=== PATIENT | male | born 1950 | race Caucasian/White ===

== ENCOUNTER → 2017-10-09 10:27 | Outpatient (CLI) | payer MEDICARE, BC, SELFPAY ==
--- NOTE | 2017-10-09 10:55 | DI.REPORT_ITS ---
SYMPTOMS/DIAGNOSIS: RECENT PNEUMONIA TREATED WITH ANTIBIOTICS, SEVERE PLEURITIC CHEST PAIN, LOW GRADE FEVER, NORMAL 02 SATS, PAIN RLL PA AND LATERAL CHEST: Comparison CT scan is 09/23/17 and comparison chest x-ray is 01/18/10. The heart size and pulmonary vasculature are within normal limits. The left lung is clear. There is a persistent small right pleural effusion. No pneumothorax is identified. Note is made of a hiatal hernia. The bones are intact. IMPRESSION: Persistent small right pleural effusion.
[2017-10-09 11:51] LABS: D-Dimer 1109 ng/mlFEU (<500)
== END ==
PROVIDERS: PCP Internal Medicine; Visit Provider Internal Medicine Rheumatology
DX: R09.1 Pleurisy (principal); J90 Pleural effusion, not elsewhere classified; R50.9 Fever, unspecified
CPT/HCPCS: 71046; 36415; 85379

== ENCOUNTER 2017-10-09 13:02 | Emergency (ER) | payer MEDICARE, BC, SELFPAY ==
[2017-10-09 13:07] VITALS: BP 124/79; PULSE 78; RESP 17; TEMP 36.6; O2SAT 96
[2017-10-09 14:26] LABS: Abs Immature Grans 0.03 k/cumm (0.0-0.09); Absolute Basophil Count 0.04 k/cumm (0.0-0.2); Absolute Eosinophil Count 0.33 k/cumm (0.0-0.7); Absolute Lymphocyte Count 2.69 k/cumm (1.2-3.4); Absolute Monocyte Count 1.33 k/cumm (0.11-0.7); Absolute Neutrophil Count 3.79 k/cumm (1.2-6.7); Basophils % 0.5; HGB 14.6 g/dL (13.5-17.5); Immature Grans % 0.4; Lymphocytes % 32.8; Mean Corpuscular Hemoglobin 32.1 pg (27.0-33.0); Mean Corpuscular Volume 94.5 fL (80-95); Mean Platelet Volume 9.2 fL (8.0-11.0); Monocytes % 16.2; Neutrophils % 46.1; Platelet Count 238 x1000/uL (130-400); RBC 4.55 m/cumm (4.50-6.00); White Blood Cell Count 8.21 k/cumm (4.4-10.8)
[2017-10-09 14:43] LABS: ALT 23 U/L (12-78); AST 25 U/L (15-37); Albumin 3.6 g/dL (3.4-5.0); Alkaline Phosphatase 76 U/L (46-116); Anion Gap 9.7 mmol/L (3-11); BUN 13 mg/dL (7-18); Bilirubin, Total 0.3 mg/dL (0.2-1.0); CO2 27.3 mmol/L (21.0-32.0); CREATININE 1.03 mg/dL (0.70-1.30); Calcium 9.1 mg/dL (8.5-10.1); Chloride 102 mmol/L (98-107); Glucose 97 mg/dL (70-100); Lipase 144 U/L (73-393); Potassium 4.1 mmol/L (3.5-5.1); Sodium 139 mmol/L (136-145); Total Protein 8.4 g/dL (6.4-8.2)
[2017-10-09 14:50] LABS: Troponin I < 0.02 ng/mL (0.00-0.06)
--- NOTE | 2017-10-09 15:11 | DI.REPORT_ITS ---
SYMPTOMS/DIAGNOSIS: RIGHT UPPER QUADRANT PAIN ABDOMINAL ULTRASOUND: Routine examination was performed. The proximal aorta cannot be visualized due to overlying bowel. The remainder of the aorta is unremarkable. The IVC is unremarkable. There is diffuse increased echogenicity of the liver consistent with fatty infiltration. There is a focal area of decreased echogenicity adjacent to the gallbladder fossa, likely reflecting focal fatty sparing. No hepatic mass is seen. The gallbladder is negative. No stones, or sludge or gallbladder wall thickening is seen. The common duct is within normal limits at 0.5 cm. The tail of the pancreas was not well seen, but the remainder of the pancreas is unremarkable. The spleen and kidneys are unremarkable except for a 0.9 cm cyst in the mid pole of the right kidney. IMPRESSION: Hepatic steatosis. The findings were conveyed to Dr. Rueda on the date of the examination.
[2017-10-09 16:02] VITALS: BP 145/76; PULSE 68; RESP 16; TEMP 36.9; O2SAT 96
--- NOTE | 2017-10-09 16:37 | DI.RPTCT_ITS ---
SYMPTOM/DIAGNOSIS: CONCERN FOR PE, ELEVATED DIMER CHEST CT FOR PULMONARY EMBOLISM: CT angiography was performed with multi slice acquisition and multi planar and 3D reconstruction. Comparison is made with 20 September 2017. No pulmonary emboli or aortic dissection is seen. A small right pleural effusion and mild adjacent atelectasis is again noted. No infiltrate is visible. A large hiatal hernia is again demonstrated. IMPRESSION: Stable right pleural effusion. No evidence of pulmonary emboli or other acute abnormality.
[2017-10-09] MEDS: Omnipaque 350 MG/ML 100 ML BTL IJ (17:17)
--- NOTE | 2017-10-09 17:44 | DI.VRAD_ITS ---
EXAM: CT Angiography Chest With Intravenous Contrast EXAM DATE/TIME: 10/09/2017 4:38 PM CLINICAL HISTORY: 66 years old, male; Pain; Chest pain TECHNIQUE: Axial computed tomographic angiography images of the chest with intravenous contrast using CT angiography protocol. Coronal and sagittal reformatted images were created and reviewed. MIP reconstructed images were created and reviewed. COMPARISON: CT - CHEST FOR PULMONARY EMBOLUS 2017-09-20 13:28 FINDINGS: Pulmonary arteries: Normal. No pulmonary emboli. Aorta: Calcification of the thoracic aorta and/or great vessels consistent with atherosclerotic vessel disease. Lungs: Normal. No consolidation. No masses. Pleural space: Small right pleural fluid collection. Heart: Moderate calcified coronary artery disease. Mediastinum: Stable moderate intrathoracic hiatal hernia. Bones/joints: Unremarkable. No acute fracture. Soft tissues: Unremarkable. Lymph nodes: Unremarkable. No enlarged lymph nodes. IMPRESSION: 1. Small right pleural fluid collection. 2. Stable moderate intrathoracic hiatal hernia. 3. Moderate calcified coronary artery disease. Dictated and Authenticated by: Timmy Garcia MD. Ordering:HANG VAIL MD
[2017-10-09 18:28] LABS: Troponin I < 0.02 ng/mL (0.00-0.06)
--- NOTE | 2017-10-09 18:34 | ED.GENADUL ---
Disposition Clinical Impression: Right-sided chest pain Disposition: HOME Condition: Good Instructions: Chest Pain (ED) Additional Instructions: If you notice any worsening of your symptoms, or any new symptoms such as vomiting, diarrhea, fever, chills, shortness of breath, chest pain, numbness, weakness, or fainting , please return immediately to the emergency department for reevaluation. Please follow up with your primary care provider as soon as possible for reassessment and reevaluation. As always, it was a pleasure participating in your medical care today. Referrals: Yuan Tian MD [Primary Care Provider] - Medical Decision Making - Lab Data Laboratory Tests 10/09/17 10/09/17 10/09/17 14:20 14:20 18:03 WBC 8.21 RBC 4.55 Hgb 14.6 Hct 43.0 MCV 94.5 MCH 32.1 MCHC 34.0 RDW 14.0 Plt Count 238 MPV 9.2 Immature Gran % 0.4 Neutrophils % 46.1 Lymphocytes % 32.8 Monocytes % 16.2 Eosinophils % 4.0 Basophils % 0.5 Absolute Neutrophils 3.79 Absolute Lymphocytes 2.69 Absolute Monocytes 1.33 H Absolute Eosinophils 0.33 Absolute Basophils 0.04 Sodium 139 Potassium 4.1 Chloride 102 Carbon Dioxide 27.3 Anion Gap 9.7 BUN 13 Creatinine 1.03 Estimated GFR/1.73 m2 >= 60.00 Glucose 97 Calcium 9.1 Total Bilirubin 0.3 AST 25 ALT 23 Alkaline Phosphatase 76 Troponin I < 0.02 < 0.02 Total Protein 8.4 H Albumin 3.6 Lipase 144 - Medical Decision Making This is a 66-year-old male who presents with right upper quadrant pain that has been present since September. He has a known mild pleural effusion in this area, as well as a history of a intrathoracic hiatal hernia. He had been to his primary care provider's office recently, and they ordered an outpatient L d-dimer, and this was elevated. They recommended he come in for evaluation. Patient made it clear that the only reason he came in today was because his PCP recommended it to rule out PE. Physical exam demonstrates no significant abdominal tenderness. Laboratory workup is relatively benign.Gallbladder ultrasound is negative for any acute process. No evidence of gallbladder wall thickening, common bile duct dilatation, or gallstones. There is evidence of a fatty liver noticed. CT scan did not show any evidence of a pulmonary embolism. EKG is normal. Serial troponins are normal. Patient's laboratory workup most part is very benign. I did discuss the fatty liver with the patient he states that he drinks 3-4 beers a day, which I recommended he decrease. With a negative workup, negative serial troponins, no evidence of pulmonary embolism or gallbladder pathology I feel he can be safely discharged home with close follow-up with his PCP. I discussed red flags which to return the patient understands. I feel his symptoms may be secondary to mild pleurisy secondary to his small pleural effusion. I have extensively reviewed the treatment plan and discharge instructions with the patient and their family. I have addressed all patient concerns at this time. The patient and family was made aware of what symptoms to monitor for that would warrant a return to the emergency department. Discussed the plan with the patient and family, they demonstrate verbal understanding and agreement with our assessment and plan at this time. EKG 10/09/1813: 25 Rate 69, intervals normal, normal sinus rhythm. No ST elevations or depressions. Old Q waves in lead III and aVF. No other abnormalities. History of Present Illness - General Chief complaint: Abd Prob Stated complaint: UNKNOWN Time Seen by Provider: 10/09/17 13:17 - History of Present Illness Initial comments: This is a 66-year-old man with a past medical history of blood clots and pulmonary embolism in the past secondary to an inciting event for which he no longer takes anticoagulants at physician recommendation, hypertension, family history of men's type II, psoriatic arthritis, and Humira use secondary to his psoriatic arthritis. He presents today for evaluation of an elevated d-dimer. Patient states that in September he had pleuritic chest pain, at which time he was worked up and evaluated and shown to have a small pleural effusion, no other significant abnormalities. Since then he has mild continued right upper quadrant pain. It is been associated with a mild cough, and occasional productive green sputum. He states that over the last 5 days he has noticed it is gotten slightly worse than normal. There seems to be no other aggravating or relieving factors. No relation to food at this time, however back in September when it initially started there was a relation to greasy foods that made it worse. He went to see his primary care provider, and they ordered an outpatient d-dimer. This was elevated they recommended that he come in for evaluation of potential pulmonary embolism. He denies any vomiting but does admit to nausea. He denies any diarrhea. He denies any fevers at home or chills. Patient denies any hemoptysis, bilious emesis, rash, numbness tingling or weakness. Patient denies any recent surgeries. He denies any IV or illicit drug use. He has no other complaints at this time. - Related Data Cholecalciferol (Vitamin D3) [Vitamin D3] 1,000 unit PO DAILY 07/12/16 Magnesium Oxide 400 mg PO BID 07/12/16 Multivitamin [Multi-Vitamin Daily] 1 each PO DAILY 07/12/16 Adalimumab [Humira] 40 mg SQ Q14 days kit 07/13/16 Clobetasol Propionate/Emoll [Clobetasol Emollnt 0.05% Foam] 50 gm TP DAILY script 07/13/16 Omeprazole Magnesium 20 mg PO BID 07/13/16 Timolol 0.5% Gel [Timoptic-Xe 0.5%] 1 drp OD DAILY drp 07/13/16 Sucralfate [Carafate] 1 gm PO AC & HS #160 tab 07/16/16 Losartan [Cozaar] 50 mg PO 10/09/17 Metoprolol [Lopressor] 100 mg PO 10/09/17 Allergies Allergy/AdvReac Type Severity Reaction Status Date / Time methotrexate AdvReac Intermediate vomitting Unverified 07/16/16 11:31 Penicillins AdvReac nauseau Unverified 07/16/16 11:31 Review of Systems Other: 10 point review of systems was performed, pertinent positives and negatives are noted in the history of present illness. General Exam - Other Other exam information: 1.Const: Well-nourished, Well-developed, appearing stated age 2.Eyes: PERRL, no conjunctival injection, and symmetrical lids. 3.ENT: Atraumatic external nose and ears. Moist MM. Neck: Symmetric, trachea midline, No thyromegaly. 4.CVS: +S1/S2, No murmurs or gallops. Peripheral pulses 2+ and equal in all extremities. Brisk capillary refill in all extremities. 5.RESP: Unlabored respiratory effort. Clear to auscultation bilaterally. No wheezes rales or rhonchi, no reproducible chest pain on palpation of the right chest. 6.GI: Soft,, no guarding or rebound, no hepatosplenomegaly. Negative Spangler sign, no pain at McBurney's point. No right-sided or left-sided CVA tenderness. 7.MSK: Normocephalic/Atraumatic, Extremities w/o deformity or ttp No cyanosis or clubbing, Normal movement of all extremities 8.Skin: Warm, Dry. No rashes or lesions. 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 Sensation grossly intact, no focal neurologic deficits. 10.Psych: (AAO) x3. Appropriate mood and affect Course Vital Signs - 24 hr 10/09/17 10/09/17 13:07 16:02 Temperature 36.6 C 36.9 C Pulse 78 68 Respiratory 17 16 Rate Blood Pressure 124/79 145/76 Pulse Oximetry 96 96
== END 2017-10-09 18:40 | disposition home or self-care (01) ==
PROVIDERS: Emergency Provider Student in an Organized Health Care Education/Training Program; PCP Internal Medicine
DX: R07.9 Chest pain, unspecified (principal); R79.1 Abnormal coagulation profile; R11.0 Nausea; Z86.711 Personal history of pulmonary embolism; I10 Essential (primary) hypertension; R09.1 Pleurisy; J90 Pleural effusion, not elsewhere classified; R50.9 Fever, unspecified
CPT/HCPCS: 71046; 71275; 76700; 93005; 96372; 99285 ×2; 36415; 80053; 83690; 84484; 85025; 85379; 93010; J3490

== ENCOUNTER → 2017-10-22 07:22 | Outpatient (CLI) | payer MEDICARE, BC, SELFPAY | PROVIDERS: PCP Internal Medicine; Visit Provider Surgery | DX: J90 Pleural effusion, not elsewhere classified (principal); I10 Essential (primary) hypertension | CPT/HCPCS: 99214 ==

== ENCOUNTER → 2017-10-25 10:49 | Outpatient (CLI) | payer MEDICARE, BC, SELFPAY ==
--- NOTE | 2017-10-25 12:30 | DI.REPORT_ITS ---
SYMPTOMS/DIAGNOSIS: CHRONIC CHEST PAIN, PLEURAL EFFUSION, S/P THORACENTESIS PA AND LATERAL CHEST: Comparison is made with October,. There is a small right pleural effusion, not significantly changed from the previous exam. No left effusion is seen. A hiatal hernia is again noted. No infiltrate or pulmonary edema is seen. The heart size is within normal limits. IMPRESSION: Stable small right pleural effusion. No evidence of pneumothorax.
== END ==
PROVIDERS: PCP Internal Medicine; Visit Provider Surgery
DX: R06.02 Shortness of breath (principal); R07.1 Chest pain on breathing; J90 Pleural effusion, not elsewhere classified
CPT/HCPCS: 71046

== ENCOUNTER → 2017-10-25 14:21 | Outpatient (CLI) | payer MEDICARE, BC, SELFPAY ==
[2017-11-19 15:48] LABS: Leukemia/Lymphoma by FC (Blood See Comments
== END ==
PROVIDERS: PCP Internal Medicine; Visit Provider Surgery
DX: J90 Pleural effusion, not elsewhere classified (principal); R07.9 Chest pain, unspecified; R06.02 Shortness of breath
CPT/HCPCS: 88184; 88185; 71046; 88189

== ENCOUNTER → 2017-10-31 16:28 | Outpatient (CLI) | payer MEDICARE, BC, SELFPAY ==
--- NOTE | 2017-10-31 14:47 | DI.REPORT_ITS ---
SYMPTOMS/DIAGNOSIS: PLEURAL EFFUSION RT, J90 PA AND LATERAL CHEST AND DECUBITUS CHEST: Three views were obtained. The heart is not enlarged. There is a retrocardiac hiatus hernia. The lungs are generally clear. There is a small to moderate sized right pleural effusion, no gross interval change in size in comparison with examination of 10/25/17. CONCLUSION: No apparent interval change in right pleural effusion.
== END ==
PROVIDERS: PCP Internal Medicine; Visit Provider Internal Medicine
DX: J90 Pleural effusion, not elsewhere classified (principal); K44.9 Diaphragmatic hernia without obstruction or gangrene
CPT/HCPCS: 71048

== ENCOUNTER 2017-12-06 12:59 | Outpatient (CLI) | payer MEDICARE, BC, SELFPAY ==
--- NOTE | 2017-12-06 13:27 | DI.RAD_ITS ---
SYMPTOMS/DIAGNOSIS: RT CHEST PAIN, R07.89, LT SHOULDER PAIN, M25.512 CHEST: Two views. Comparison is 10/31/17. The heart size and pulmonary vasculature are within normal limits. There is a hiatal hernia present. The left lung is clear and well expanded. No effusion or pneumothorax is identified. There is persistent blunting of the right costophrenic angle and thickening along the right wall suggestive of a persistent small right pleural effusion. No pneumothorax is seen. No infiltrates are seen in the lungs. The bones appear to be intact. There is unchanged elevation of the right hemidiaphragm. IMPRESSION: Persistent small right pleural effusion. A CT scan of the chest was be considered for further evaluation to access for loculation. LEFT SHOULDER: Four views. No acute fracture or dislocation is seen. Mild degenerative changes are seen at the acromioclavicular joint. The glenohumeral joint is well maintained. The bones are normally mineralized and intact. The soft tissues are unremarkable. IMPRESSION: Mild degenerative changes of the left acromioclavicular joint.
== END 2017-12-06 13:19 ==
PROVIDERS: PCP Internal Medicine; Visit Provider Internal Medicine
DX: R07.89 Other chest pain (principal); J90 Pleural effusion, not elsewhere classified; M25.512 Pain in left shoulder; M19.012 Primary osteoarthritis, left shoulder
CPT/HCPCS: 71046; 73030

== ENCOUNTER → 2017-12-31 09:28 | Outpatient (BNVA) | payer MEDICARE, BC, SELFPAY | PROVIDERS: PCP Internal Medicine; Referring Provider Internal Medicine; Visit Provider Orthopaedic Surgery | DX: M25.512 Pain in left shoulder (principal); G89.29 Other chronic pain; I10 Essential (primary) hypertension | CPT/HCPCS: 99211; 99213 ==

== ENCOUNTER 2018-02-14 14:52 | Outpatient (CLI) | payer MEDICARE, BC, SELFPAY ==
--- NOTE | 2018-02-14 13:30 | DI.RAD_ITS ---
SYMPTOM/DIAGNOSIS: RT PLEURAL EFFUSION, M90,CHRONIC COUGH, CHEST PAIN PA AND LATERAL CHEST: Comparison is made with 12/06/17. Heart size and pulmonary vasculature are within normal limits. There is again seen a hiatal hernia. There has been resolution of the right pulmonary infiltrate and effusion. The lungs are clear. No effusions or pneumothoraces are identified. Degenerative changes are seen in the spine. IMPRESSION: No acute pulmonary process.
== END 2018-02-14 15:12 ==
PROVIDERS: PCP Internal Medicine; Visit Provider Internal Medicine
DX: J90 Pleural effusion, not elsewhere classified (principal); R05 Cough; R07.9 Chest pain, unspecified
CPT/HCPCS: 71046

== ENCOUNTER 2018-02-14 21:36 | Outpatient (REF) | payer MEDICARE, BC, SELFPAY ==
[2018-02-14 21:48] LABS: Abs Immature Grans 0.02 k/cumm (0.0-0.09); Absolute Basophil Count 0.03 k/cumm (0.0-0.2); Absolute Eosinophil Count 0.23 k/cumm (0.0-0.7); Absolute Lymphocyte Count 1.86 k/cumm (1.2-3.4); Absolute Monocyte Count 0.58 k/cumm (0.11-0.7); Absolute Neutrophil Count 2.57 k/cumm (1.2-6.7); Basophils % 0.6; Eosinophils % 4.3; HCT 43.7 % (40.0-50.0); HGB 14.4 g/dL (13.5-17.5); Immature Grans % 0.4; Lymphocytes % 35.2; Mean Corpuscular Hemoglobin 32.7 pg (27.0-33.0); Mean Corpuscular Volume 99.3 fL (80-95); Mean Platelet Volume 9.5 fL (8.0-11.0); Neutrophils % 48.5; Platelet Count 243 x1000/uL (130-400); RBC Distribution Width 13.7 % (11.8-14.1); White Blood Cell Count 5.29 k/cumm (4.4-10.8)
== END 2018-02-14 21:56 ==
LOC: NCHCN 21:36
PROVIDERS: PCP Internal Medicine; Visit Provider Internal Medicine
DX: J90 Pleural effusion, not elsewhere classified (principal); K92.2 Gastrointestinal hemorrhage, unspecified
CPT/HCPCS: 85025

== ENCOUNTER 2018-02-17 02:38 | Outpatient (CLI) | payer MEDICARE, BC, SELFPAY | END 2018-02-17 02:58 | PROVIDERS: PCP Internal Medicine; Visit Provider Dermatology | DX: L40.9 Psoriasis, unspecified (principal); Z53.8 Procedure and treatment not carried out for other reasons ==

== ENCOUNTER 2018-10-28 15:04 | Outpatient (CLI) | payer MEDICARE, BC, SELFPAY ==
[2018-10-28 15:27] LABS: Abs Immature Grans 0.03 k/cumm (0.0-0.09); Absolute Basophil Count 0.07 k/cumm (0.0-0.2); Absolute Eosinophil Count 0.24 k/cumm (0.0-0.7); Absolute Lymphocyte Count 1.27 k/cumm (1.2-3.4); Absolute Monocyte Count 0.91 k/cumm (0.11-0.7); Absolute Neutrophil Count 3.91 k/cumm (1.2-6.7); Basophils % 1.1; Eosinophils % 3.7; HCT 41.9 % (40.0-50.0); Immature Grans % 0.5; Lymphocytes % 19.8; Mean Corp. HGB Concentration 33.4 g/dL (32.0-36.0); Mean Corpuscular Hemoglobin 32.1 pg (27.0-33.0); Mean Corpuscular Volume 96.1 fL (80-95); Mean Platelet Volume 9.1 fL (8.0-11.0); Monocytes % 14.2; Neutrophils % 60.7; Platelet Count 279 x1000/uL (130-400); RBC 4.36 m/cumm (4.50-6.00); RBC Distribution Width 13.5 % (11.8-14.1); White Blood Cell Count 6.43 k/cumm (4.4-10.8)
[2018-10-28 16:25] LABS: ALT 37 U/L (12-78); AST 30 U/L (15-37); Albumin 3.7 g/dL (3.4-5.0); Alkaline Phosphatase 53 U/L (46-116); BUN 18 mg/dL (7-18); Bilirubin, Total 0.4 mg/dL (0.2-1.0); CREATININE 1.04 mg/dL (0.70-1.30); Calcium 8.7 mg/dL (8.5-10.1); Chloride 106 mmol/L (98-107); Glucose 94 mg/dL (70-100); Potassium 4.1 mmol/L (3.5-5.1); Sodium 142 mmol/L (136-145); Total Protein 7.6 g/dL (6.4-8.2)
[2018-10-31 11:01] LABS: Metanephrine, Free 0.25 nmol/L (<0.50); Normetanephrine, Free 0.48 nmol/L (<0.90)
== END 2018-10-28 15:24 ==
PROVIDERS: PCP Internal Medicine; Visit Provider Internal Medicine
DX: I10 Essential (primary) hypertension (principal); Z87.19 Personal history of other diseases of the digestive system; Z83.41 Family history of multiple endocrine neoplasia [MEN] syndrome
CPT/HCPCS: 36415; 80053; 83835; 85025

== ENCOUNTER → 2018-12-18 13:18 | Outpatient (BNVA) | payer MEDICARE, BC, SELFPAY | PROVIDERS: PCP Internal Medicine; Referring Provider Internal Medicine; Visit Provider Physical Therapy Assistant | DX: Z12.11 Encounter for screening for malignant neoplasm of colon (principal); I10 Essential (primary) hypertension ==

== ENCOUNTER 2018-12-31 11:45 | Outpatient (CLI) | payer MEDICARE, BC, SELFPAY ==
--- NOTE | 2018-12-31 14:00 | DI.US_ITS ---
EXAM: US CAROTID CLINICAL HISTORY: CAROTID ARTERY SYNDROME G45.1 TECHNIQUE: Ultrasound performed using standard protocol. COMPARISON: No exams were available for comparison FINDINGS: Plaque formation is noted and is mild to moderate bilaterally in the proximal internal carotid arteri es. Also note is made of moderate plaque in the right bulb. There is also moderate plaque in left c arotid bulb. Velocity measurements would be consistent with less than 50 percent stenosis bilaterall y. Bilateral antegrade flow is noted in the vertebrals. IMPRESSION: There is no significant stenosis or evidence of occlusion.
== END 2018-12-31 12:05 ==
PROVIDERS: PCP Internal Medicine; Visit Provider Internal Medicine
DX: G45.1 Carotid artery syndrome (hemispheric) (principal)
CPT/HCPCS: 93880

== ENCOUNTER 2019-01-16 07:43 | Day surgery (SDC) | payer MEDICARE, BC, SELFPAY ==
[2019-01-16 07:54] VITALS: BP 137/76; PULSE 71; RESP 16; TEMP 36.4; O2SAT 100
--- NOTE | 2019-01-16 08:18 | W.PM.DSUDISC ---
Discharge Plan Disposition Patient Disposition: HOME Condition: Good Discharge Details Reason For Visit: Colonoscopy Attending Provider: Merary Perry Primary Care Provider: Yuan Tian Home Meds and New Rx's Prescriptions: Continued Humira(CF) 40 mg/0.4 mL syringe kit 40 mg SC Q2W RF: 0 verapamil 240 mg capsule,ext rel. pellets 24 hr 240 mg PO DAILY RF: 0 multivitamin [Daily Multi-Vitamin] 1 EACH tablet 1 ea PO DAILY RF: 0 magnesium oxide 400 MG tablet 400 mg PO BID RF: 0 cholecalciferol (vitamin D3) 1,000 UNIT capsule 1,000 unit PO DAILY RF: 0 clobetasol-emollient 50 GM foam 50 gm Topical DAILY RF: 0 omeprazole magnesium 20 MG capsule,delayed release(DR/EC) 20 mg PO BID RF: 0 calcipotriene [Dovonex] 60 GM cream 60 gm Topical RF: 0 sertraline 50 MG tablet 50 mg PO DAILY RF: 0 clobetasol-emollient 15 GM cream 15 gm Topical RF: 0 losartan 50 MG tablet 50 mg PO RF: 0 metoprolol tartrate 100 MG tablet 100 mg PO RF: 0 Discontinued polyethylene glycol 3350 17 gram/dose powder 238 g PO ONCE Qty: 238 RF: 0 bisacodyl [Dulcolax (bisacodyl)] 5 mg tablet,delayed release (DR/EC) 5 mg PO ONCE Qty: 4 RF: 0 Discharge Instructions Additional Instructions: Findings: Your colonoscopy was normal. Follow up: Plan for routine screening in 10 years or sooner if symptoms arise. Please call if you develop: fevers >101.5 Nausea or Vomiting Abdominal pain that is not transient DAY SURGERY UNIT POST COLONOSCOPY INSTRUCTIONS 1. Because there will be medication in your system for the next 24 hours, you may feel a little sleepy. Your coordination will be affected. Therefore: a. Do not drive or operate dangerous equipment for 24 hours. b. Do not drink alcohol beverages for 24 hours (not even beer). c. Plan to go home and rest for the day. 2. Generally there are no restrictions on your activity after a day or so has gone by, but you may feel a bit fatigued for a few days. 3 After you arrive home you may have a light meal and return to a normal diet as you can tolerate it without feeling sick to your stomach. 4. After surgery, you may feel pain or discomfort. This should be only transient, but if it persists please contact your doctor. 5. If there are any questions regarding the findings of your procedure, please feel free to contact your doctor. 6. If you are unable to contact your doctor with a problem, contact the hospital at [phone]. 7. Continue all your regular medications unless directed otherwise. I understand the above instructions and have no questions. Signature of Patient or Responsible Adult Escort Date/Time Name of Responsible Adult Escort Signature of Nurse Date/Time Activity:: Activity as Tolerated Diet:: As Tolerated Discharge Orders Discharge Orders: Discharge Order (Routine); Ordered 01/16/19 Ordered By: Merary Perry DS: Diagnosis Discharge Diagnosis (1) Normal colonoscopy: Status: Acute
[2019-01-16] MEDS: Lactated Ringers 1,000 ML 80 ML IV (08:23)
[2019-01-16 09:45] VITALS: BP 142/81; PULSE 68; RESP 16; TEMP 36.4; O2SAT 99
--- NOTE | 2019-01-16 11:01 | COLE_ITS ---
DATE OF PROCEDURE: January 16, 2019 PREOPERATIVE DIAGNOSIS: Screening. POSTOPERATIVE DIAGNOSIS: Normal colon. PROCEDURE: Colonoscopy. SURGEON: Merary Perry M.D. ANESTHESIA: General. INDICATIONS: This is a 68-year-old man whose last colonoscopy in 2008 was normal. He presents for [facility] follow-up. He is asymptomatic and has no family history of colon cancer. PROCEDURE: He was placed in the left Mason position. Propofol was titrated to sedation. Digital rec stacy examination revealed no abnormalities. The scope was advanced to the cecum without difficulty. The ileocecal valve and appendiceal orifice were clearly identified. His prep was excellent. The sc ope was slowly withdrawn with no abnormalities seen within the ascending, transverse, descending, sig moid colon or rectum, including on retroflex view. He tolerated the procedure well and was stable to recovery. He will need a follow-up screening again in ten years or sooner if symptoms indicate. cc: Yuan Tian M.D.
== END 2019-01-16 10:00 | disposition home or self-care (01) ==
PROVIDERS: PCP Internal Medicine; Visit Provider Surgery
PROC: 0DJD8ZZ Inspection of Lower Intestinal Tract, Via Natural or Artificial Opening Endoscopic (ICD-10-PCS; CPT 45378; principal; 2019-01-16 09:00)
DX: Z12.11 Encounter for screening for malignant neoplasm of colon (principal); I10 Essential (primary) hypertension
CPT/HCPCS: G0121

== ENCOUNTER 2019-02-13 01:38 | Outpatient (CLI) | payer MEDICARE, BC, SELFPAY ==
--- NOTE | 2019-02-13 10:30 | DI.US_ITS ---
APPROVED REPORT EXAM: Comprehensive 2D, Doppler, and color-flow Echocardiogram Patient Location: Out-Patient Call Center Recruiter: CORINE Carolina (AE) Rhythm: NSR Indications: vision changes h53.9, assess for afib and/or cardiac source for embolic event. amauros is fugax rt eye g45.3 ( handwritten in) Conclusion Left Ventricle : The left ventricle is normal size. Left ventricular systolic function is normal. Th ere is normal left ventricular wall thickness. There is normal LV segmental wall motion. The left ve ntricular diastolic function is normal. LVEF is estimated to be 60-65%. Right Ventricle : The right ventricle is normal size. The right ventricular systolic function is norm al. Atria : The left atrium size is top normal. The right atrium size is normal. Aortic Valve : The Aortic valve is very mildly sclerotic. No aortic regurgitation is present. There i s no aortic valvular stenosis. Mitral Valve : Mitral valve leaflets are mildly thickened. Mild mitral regurgitation. No evidence of mitral valve stenosis. Tricuspid Valve : The tricuspid valve is normal in structure. Trace to mild tricuspid regurgitation. Great Vessels : IVC is normal in size and collapses >50% with inspiration. Mid RVSP is 35-40 mmHg. There is no echocardiographic evidence of a cardiac source of emboli. There is no prior echocardiogram available for comparison. Wall motion Left Ventricle The left ventricle is normal size. Left ventricular systolic function is normal. There is normal left ventricular wall thickness. There is normal LV segmental wall motion. The left ventricular diastolic function is normal. LVEF is estimated to be 60-65%. Right Ventricle The right ventricle is normal size. The right ventricular systolic function is normal. Atria The left atrium size is top normal. The right atrium size is normal. Aortic Valve The Aortic valve is very mildly sclerotic. There is no aortic valvular stenosis. No aortic regurgitat ion is present. Mitral Valve Mitral valve leaflets are mildly thickened. No evidence of mitral valve stenosis. Mild mitral regurgi tation. Tricuspid Valve The tricuspid valve is normal in structure. Trace to mild tricuspid regurgitation. Pulmonic Valve Pulmonic valve is not well visualized. Great Vessels The aortic root is normal in size. The ascending aorta size is normal. IVC is normal in size and nikita apses >50% with inspiration. Mid RVSP is 35-40 mmHg. Pericardium There is no pericardial effusion. 2D Dimensions IVSd 0.80 cm M: 0.6-1.2 LV EDV A2C 65.30 mL PWd 1.00 cm M: 0.6 - 1.2 LV EDV A4C 113.10 mL LVDd 5.35 cm M: 4.2 - 5.8 LA Volume Index A2C 32.29 mL/m2 LVDs 3.50 cm M: 2.5 - 4.0 LA Volume Index A4C 29.76 mL/m2 Aortic Root 3.40 cm M: 3.1 - 3.7 LA Volume Index Biplane 32.62 mL/m2 RA Area A4C 16.04 cm2 LA Area A4C 20.24 cm2 LVOT 2.10 cm (M/F) 1.5-2.5 LA Area A2C 20.03 cm2 Ascending Aorta 3.31 cm M: 2.6 - 3.4 EF AP4 68.70 % LVEF (Teich) 63.71 % EF AP2 56.05 % LVEF (Andino's) 63.97 % M: 52 - 72 EF BP 63.97 % LV Volume 68.03 mL M: 62 - 150 LV Volume Index 34.01 mL/m2 M: 34 - 74 FS 34.95 % LV Diastology E/A Ratio 0.8 MED E' 0.08 (>0.07 m/s) LV E/e MED 8.45 (<14) LAT E' 0.13 (>0.1 m/s) LV E/e LAT 5.55 (<14) Aortic Valve LVOT Area 3.60 cm2 LVOT Peak Edgar. 1.05 m/s LVOT Mean Edgar. 0.69 m/s LVOT Peak Gr. 4.50 mmHg BERENICE Vmax Index 1.26 cm2/m2 LVOT Mean Gr. 2.20 mmHg LVOT VTI 0.20 m BERENICE Mean Edgar. Index 1.07 cm2/m2 AoV Peak Edgar. 1.52 (0.5-1.3 m/s) AoV Mean Edgar. 1.16 m/s AO Peak GR. 9.19 mmHg AO Mean GR. 5.74 (<5 mmHg) BERENICE (VTI) 2.27 (2.5-4.5 cm2) BERENICE (VTI) Index 1.14 cm/m2 Mitral Valve MV E Max Edgar. 0.71 (0.4-1.3 m/s) MV A Velocity 0.90 (0.4-1.3 m/s) E/A Ratio 0.79 MV Decel. Time 179.40 (160-240 msec) MV PHT 52.03 msec MVA PHT 4.20 cm2 Tricuspid Valve TR P. Velocity 2.98 m/s TV Regurg Vmax 2.98 m/s RAP Estimate 3.00 mmHg RVSP 39.00 mmHg TR P. Gradient 35.55 mmHg
== END 2019-02-13 01:58 ==
PROVIDERS: PCP Internal Medicine; Visit Provider Internal Medicine
DX: G45.3 Amaurosis fugax (principal); H53.9 Unspecified visual disturbance; I34.9 Nonrheumatic mitral valve disorder, unspecified; I10 Essential (primary) hypertension
CPT/HCPCS: 93306

== ENCOUNTER 2019-02-16 00:12 | Outpatient (CLI) | payer MEDICARE, BC, SELFPAY | END 2019-02-16 00:32 | PROVIDERS: PCP Internal Medicine; Visit Provider Internal Medicine | DX: I48.91 Unspecified atrial fibrillation (principal); I47.1 Supraventricular tachycardia; I49.3 Ventricular premature depolarization | CPT/HCPCS: 93225 ==

== ENCOUNTER 2019-02-17 14:08 | Outpatient (REF) | payer MEDICARE, BC, SELFPAY ==
[2019-02-17 22:24] LABS: Folate 6.2 ng/mL (8.6-20.0); Vitamin B12 290 pg/mL (193-986)
== END 2019-02-17 14:28 ==
LOC: NCHCN 14:08
PROVIDERS: PCP Internal Medicine; Visit Provider Internal Medicine
DX: D53.9 Nutritional anemia, unspecified (principal); F41.8 Other specified anxiety disorders; R05 Cough; K30 Functional dyspepsia; G47.00 Insomnia, unspecified; D15.0 Benign neoplasm of thymus; J45.991 Cough variant asthma; E66.9 Obesity, unspecified
CPT/HCPCS: 82607; 82746

== ENCOUNTER 2019-02-18 15:51 | Outpatient (CLI) | payer MEDICARE, BC, SELFPAY ==
--- NOTE | 2019-02-19 09:45 | W.HOLTRPT ---
Date of service: 02/19/19 Time of Service: 09:45 Holter Monitor Report Holter Monitor Note: There is a 24-hour Holter monitor ordered for indication of atrial fibrillation. ?Patient was in normal sinus rhythm for the majority of the recording. ?The patient had one episode of supraventricular tachycardia which lasted 3 beats. The patient had rare (less than 1%) premature atrial contractions ?The patient had 0 episodes of ventricular tachycardia and rare (less than 1%) single ventricular ectopic beats. ?The patient had no episodes of atrial fibrillation, pauses greater than 3 seconds or episodes of high degree heart block. ?There were no patient triggered events.
== END 2019-02-18 16:11 ==
PROVIDERS: PCP Internal Medicine; Visit Provider Internal Medicine
DX: I48.91 Unspecified atrial fibrillation (principal); I47.1 Supraventricular tachycardia; I49.3 Ventricular premature depolarization
CPT/HCPCS: 93226

== ENCOUNTER 2019-02-19 09:56 | Outpatient (CLI) | payer MEDICARE, BC, SELFPAY | END 2019-02-19 10:16 | PROVIDERS: PCP Internal Medicine; Referring Provider Internal Medicine; Visit Provider Internal Medicine Cardiovascular Disease | DX: I48.91 Unspecified atrial fibrillation (principal); I47.1 Supraventricular tachycardia; I49.3 Ventricular premature depolarization | CPT/HCPCS: 93227 ==

== ENCOUNTER 2019-04-28 15:55 | Outpatient (REF) | payer MEDICARE, BC, SELFPAY ==
[2019-04-28 21:48] LABS: HCT 42.7 % (40.0-50.0); HGB 14.5 g/dL (13.5-17.5); Mean Corpuscular Hemoglobin 33.7 pg (27.0-33.0); Mean Corpuscular Volume 99.3 fL (80-95); Mean Platelet Volume 9.4 fL (8.0-11.0); Platelet Count 245 x1000/uL (130-400); RBC Distribution Width 12.5 % (11.8-14.1); White Blood Cell Count 6.28 k/cumm (4.4-10.8)
[2019-04-28 22:17] LABS: Folate > 20.0 ng/mL (8.6-20.0)
== END 2019-04-28 16:15 ==
LOC: NCHCN 15:55
PROVIDERS: PCP Internal Medicine; Visit Provider Internal Medicine
DX: I10 Essential (primary) hypertension (principal); D52.9 Folate deficiency anemia, unspecified; F32.9 Major depressive disorder, single episode, unspecified; Z87.19 Personal history of other diseases of the digestive system
CPT/HCPCS: 85027; 82746

== ENCOUNTER 2019-05-27 12:59 | Outpatient (REF) | payer MEDICARE, BC, SELFPAY ==
[2019-06-01 10:00] LABS: COVID-19 RT-PCR Result Not Detected (NotDetected)
== END 2019-05-27 13:19 ==
LOC: NCHCN 12:59
PROVIDERS: PCP Internal Medicine; Visit Provider Physician Assistant
DX: Z20.828 Contact with and (suspected) exposure to other viral communicable diseases (principal); R05 Cough
CPT/HCPCS: U0003

== ENCOUNTER 2020-02-01 18:11 | Outpatient (CLI) | payer MEDICARE, BC, SELFPAY ==
--- NOTE | 2020-02-01 | DI.US_ITS ---
EXAM: US LOWER EXTREMITY VENOUS RT CLINICAL HISTORY: LOCALIZED SWELLING, RT LOWER LEG, R22.41; PAIN, RT LOWER LEG, M79.661, ?DVT. TECHNIQUE: Lower extremity venous ultrasound performed using grayscale, color-flow, and spectral Do ppler analysis. COMPARISON: No exams were available for comparison FINDINGS: The common femoral and femoral demonstrate normal compressibility, augmentation, and color Doppler.Th ere is thrombus visible in the popliteal vein extending into 1 of the peroneal veins. The posterior tibial veins appear patent. No saphenous vein thrombosis or other superficial venous thrombosis is s een. No hematoma or Henning's cyst is seen. IMPRESSION: Deep venous thrombus extending from the popliteal vein into 1 of the peroneal veins. DATA REPOSITORY:
== END 2020-02-01 18:31 ==
PROVIDERS: PCP Internal Medicine; Visit Provider Internal Medicine
DX: I82.431 Acute embolism and thrombosis of right popliteal vein (principal); I82.451 Acute embolism and thrombosis of right peroneal vein
CPT/HCPCS: 93971

== ENCOUNTER 2020-02-12 08:55 | Outpatient (CLI) | payer MEDICARE, BC, SELFPAY ==
[2020-02-12 11:27] LABS: HCT 37.1 % (40.0-50.0); HGB 11.9 g/dL (13.5-17.5)
== END 2020-02-12 09:15 ==
PROVIDERS: PCP Internal Medicine; Visit Provider Internal Medicine
DX: Z87.19 Personal history of other diseases of the digestive system (principal)
CPT/HCPCS: 36415; 85014; 85018

== ENCOUNTER 2020-02-15 12:06 | Outpatient (REF) | payer MEDICARE, BC, SELFPAY ==
[2020-02-15 21:58] LABS: HCT 38.2 % (40.0-50.0); HGB 12.2 g/dL (13.5-17.5)
== END 2020-02-15 12:26 ==
LOC: NCHCN 12:06
PROVIDERS: PCP Internal Medicine; Visit Provider Internal Medicine
DX: Z87.19 Personal history of other diseases of the digestive system (principal)
CPT/HCPCS: 85014; 85018

== ENCOUNTER → 2020-02-17 14:20 | Outpatient (BNVA) | payer MEDICARE, BC, SELFPAY | PROVIDERS: PCP Internal Medicine; Referring Provider Internal Medicine; Visit Provider Surgery | DX: K92.1 Melena (principal); R10.13 Epigastric pain; Z86.718 Personal history of other venous thrombosis and embolism; Z87.19 Personal history of other diseases of the digestive system; Z79.01 Long term (current) use of anticoagulants | CPT/HCPCS: 99214; 99242 ==

== ENCOUNTER 2020-02-18 13:36 | Outpatient (CLI) | payer MEDICARE, BC, SELFPAY ==
[2020-02-19 01:15] LABS: COVID-19 RT-PCR UVMMC Result Negative (Negative)
== END 2020-02-18 13:56 ==
PROVIDERS: PCP Internal Medicine; Visit Provider Surgery
DX: D62 Acute posthemorrhagic anemia (principal); K21.9 Gastro-esophageal reflux disease without esophagitis; K44.9 Diaphragmatic hernia without obstruction or gangrene; K92.1 Melena; R10.13 Epigastric pain; Z86.718 Personal history of other venous thrombosis and embolism; G43.109 Migraine with aura, not intractable, without status migrainosus; Z01.818 Encounter for other preprocedural examination
CPT/HCPCS: U0003

== ENCOUNTER 2020-02-18 14:35 | Outpatient (REF) | payer MEDICARE, BC, SELFPAY ==
[2020-02-18 14:47] LABS: Abs Immature Grans 0.02 10^3/uL (0.0-0.06); Absolute Basophil Count 0.07 10^3/uL (0.0-0.2); Absolute Eosinophil Count 0.16 10^3/uL (0.0-0.7); Absolute Lymphocyte Count 1.76 10^3/uL (1.2-3.4); Absolute Neutrophil Count 3.55 10^3/uL (1.2-6.7); Basophils % 1.1; Eosinophils % 2.6; HCT 36.4 % (40.0-50.0); Immature Grans % 0.3; Lymphocytes % 28.1; MCH 31.2 pg (27.0-33.0); MCV 94.5 fL (80-95); MPV 9.1 fL (8.0-11.0); Monocytes % 11.2; Neutrophils % 56.7; Nucleated RBC 0 %; Platelet Count 243 10^3/uL (130-400); RBC 3.85 10^6/uL (4.36-5.78); RDW-SD 45.1 fL; WBC 6.26 10^3/uL (4.4-10.8)
[2020-02-18 15:00] LABS: Prothrombin Time 10.4 sec (9.3-11.0)
[2020-02-18 15:04] LABS: Iron 54 ug/dL (65-175); Total Iron Binding Capacity 383 ug/dL (250-450); Transferrin Sat 14 % (20-55)
[2020-02-18 15:15] LABS: ALT 29 U/L (16-63); AST 20 U/L (15-37); Albumin 3.8 g/dL (3.4-5.0); Alkaline Phosphatase 43 U/L (46-116); Anion Gap 10.8 mmol/L (3-11); BUN 14 mg/dL (7-18); Bilirubin, Total 0.4 mg/dL (0.2-1.0); CO2 25.2 mmol/L (21.0-32.0); CREATININE 1.12 mg/dL (0.70-1.30); Calcium 8.3 mg/dL (8.5-10.1); Chloride 102 mmol/L (98-107); Ferritin 19 ng/mL (26-388); Glucose 164 mg/dL (74-106); Potassium 3.6 mmol/L (3.5-5.1); Sodium 138 mmol/L (136-145); Total Protein 7.6 g/dL (6.4-8.2)
== END 2020-02-18 14:55 ==
LOC: LBN 14:35
PROVIDERS: PCP Internal Medicine; Visit Provider Surgery
DX: D62 Acute posthemorrhagic anemia (principal); R10.13 Epigastric pain; K21.9 Gastro-esophageal reflux disease without esophagitis; K44.9 Diaphragmatic hernia without obstruction or gangrene; G43.109 Migraine with aura, not intractable, without status migrainosus; Z86.718 Personal history of other venous thrombosis and embolism
CPT/HCPCS: 80053; 82728; 83540; 83550; 85025; 85610; 85730

== ENCOUNTER 2020-02-19 10:19 | Day surgery (SDC) | payer MEDICARE, BC, SELFPAY ==
[2020-02-19 10:36] VITALS: BP 123/64; PULSE 66; RESP 18; TEMP 36.4; O2SAT 99
[2020-02-19] MEDS: Lactated Ringers 1,000 ML 80 ML IV (11:00)
[2020-02-19] MEDS: Normal Saline Flush 10 ML SYR IV (11:01)
[2020-02-19] MEDS: Pantoprazole 40 MG VIAL IVP (11:01)
--- NOTE | 2020-02-19 12:28 | ENDO_ITS ---
Date of service: 02/19/20 Time of Service: 12:29 Endoscopy Report DATE OF PROCEDURE: 02/19/20 PRE-OP DIAGNOSIS: anemia/epigastric pain POST-OP DIAGNOSIS: other (hiatal hernia and esophagitis ) SURGEON: Laura Nelson ANESTHESIA: local PATHOLOGY: none sent COMPLICATIONS: None DISPOSITION: same day PROCEDURE DESCRIPTION: After informed consent was obtained the patient was take to the procedure room and placed in a supine position. Monitors were applied and a time out was done. The patients name, date of , procedure type, allergies to medications and metal in their body was reviewed. A bite block was placed and the patient was sedated. Once sedated and comfortable the gastroscope was advanced through the oropharynx which was grossly normal into the esophagus. The proximal and mid-esophagus were nl . In the distal esophagus there was lg hiatal hernia noted. No erosions in the esophagus, no varices., Diverticula, or stricture. He does have erosions and a small ulceration the cardia portion of the stomach. He also has a large hiatal hernia. It is herniated up into the chest. The herniated portion of the stomach does not have any erosions or ulcers. There is no signs of active or old bleeding. No biopsies were taken because he is still on Eliquis. The scope was advanced into the stomach and through the pylorus into the 3rd portion of the duodenum. The duodenum was noted to be nl. Biopsies were not done. The scope was retracted back into the stomach and biopsies were done to rule out H. pylori. There were no ulcers. There are some mild gastritis in the dependent portions of the stomach. The scope was retroflexed. The cardia and fundus were noted to be normal. There lg hiatal hernia noted. The Z line was irregular. The scope was removed and the patient was woken up and taken back to [facility] in stable condition.
--- NOTE | 2020-02-19 12:33 | W.PM.DSUDISC ---
Discharge Plan Disposition Patient Disposition: HOME Condition: Stable Discharge Details Reason For Visit: ANEMIA/ GI BLEED Attending Provider: Laura Nelson Primary Care Provider: Yuan Tian Home Meds and New Rx's Prescriptions: New pantoprazole [Protonix] 40 mg tablet,delayed release (DR/EC) 40 mg PO DAILY Qty: 60 RF: 12 sucralfate [Carafate] 1 gram tablet 1 g PO QACHS Qty: 120 RF: 12 Discontinued pantoprazole [Protonix] 40 mg tablet,delayed release (DR/EC) 40 mg PO DAILY Qty: 30 RF: 12 omeprazole magnesium 20 MG capsule,delayed release(DR/EC) 20 mg PO BID RF: 0 No Action verapamil 240 mg capsule,ext rel. pellets 24 hr 240 mg PO DAILY RF: 0 multivitamin [Daily Multi-Vitamin] 1 EACH tablet 1 ea PO DAILY RF: 0 cholecalciferol (vitamin D3) 1,000 UNIT capsule 1,000 unit PO DAILY RF: 0 calcipotriene [Dovonex] 60 GM cream 60 gm Topical PRN PRNRF: 0 sertraline 50 MG tablet 50 mg PO DAILY RF: 0 metoprolol tartrate 100 mg tablet 50 mg PO DAILY RF: 0 latanoprost [Xalatan] 0.005 % drops 1 drp ophthalmic (eye) DAILY RF: 0 Combigan 0.2-0.5 % drops 1 drp ophthalmic (eye) BID RF: 0 Eliquis 5 mg tablet 5 mg PO BID RF: 0 sucralfate [Carafate] 1 gram tablet 1 g PO QACHS RF: 0 losartan 50 MG tablet 50 mg PO DAILY RF: 0 Discharge Instructions Additional Instructions: Findings:hiatal hernia For 13 weeks: Protonix twice a day and carafate every 6hrs for 12 weeks. -after 12 weeks: stay on protonix once a day lifelong. -Needs hematology work-up to determine need for chronic life-long anticoagulation. NO: ASA/NSAID's. tylenol is ok Continue with lifestyle modifications: no alcohol, tobacco products, Aspirin or NSAID's (ibuprofen, Motrin, Naprosyn, aleve, etc), soda pop/any carbonated beverages, caffeine (including tea & chocolate), and acidic foods, (tomatoes, citrus, onions, peppermints) spicy foods. Do not lie down for 30 minutes after eating, and do not eat 2 hours prior to bedtime. Avoid wearing tight fitting clothing/ belts Please call if you develop: fevers >101.5 Nausea or Vomiting Abdominal pain that is not transient black -tarry stools that last longer then 24hrs DAY SURGERY UNIT POST COLONOSCOPY INSTRUCTIONS 1. Because there will be medication in your system for the next 24 hours, you may feel a little sleepy. Your coordination will be affected. Therefore: a. Do not drive or operate dangerous equipment for 24 hours. b. Do not drink alcohol beverages for 24 hours (not even beer). c. Plan to go home and rest for the day. 2. Generally there are no restrictions on your activity after a day or so has gone by, but you may feel a bit fatigued for a few days. 3 After you arrive home you may have a light meal and return to a normal diet as you can tolerate it without feeling sick to your stomach. 4. After surgery, you may feel pain or discomfort. This should be only transient, but if it persists please contact your doctor. 5. If there are any questions regarding the findings of your procedure, please feel free to contact your doctor. 6. If you are unable to contact your doctor with a problem, contact the hospital at [phone]. 7. Continue all your regular medications unless directed otherwise. I understand the above instructions and have no questions. Signature of Patient or Responsible Adult Escort Date/Time Name of Responsible Adult Escort Signature of Nurse Date/Time Stand Alone Forms: [place] (DSU) Activity:: no lifting over 20#'s or strenuous activity x 24 hrs Diet:: small light meals x 24 hrs Discharge Orders Discharge Orders: Discharge Order (Routine); Ordered 02/19/20 Ordered By: Laura Nelson DS: Diagnosis Discharge Diagnosis (1) Anemia due to blood loss, acute: Status: Acute (2) Epigastric abdominal pain: Status: Acute (3) History of GI bleed: Status: None (4) History of DVT (deep vein thrombosis): Status: Acute (5) GERD (gastroesophageal reflux disease): Status: Chronic (6) Erosive esophagitis: Status: Acute
[2020-02-19] MEDS: IRON SUCROSE COMPLEX 200 MG in Normal Saline 100 ML 440 MG IVPB (12:41)
[2020-02-19 13:11] VITALS: BP 128/67; PULSE 62; RESP 16; TEMP 36.5; O2SAT 97
== END 2020-02-19 13:50 | disposition home or self-care (01) ==
PROVIDERS: PCP Internal Medicine; Visit Provider Surgery
PROC: 0DJ68ZZ Inspection of Stomach, Via Natural or Artificial Opening Endoscopic (ICD-10-PCS; CPT 43235; principal; 2020-02-19 11:15)
DX: D62 Acute posthemorrhagic anemia (principal)
CPT/HCPCS: 43239; 36415; 43235; 86850; 86900; 86901; 96365; 96366; J1756; J2001

== ENCOUNTER 2020-03-30 04:27 | Outpatient (CLI) | payer MEDICARE, BC, SELFPAY ==
[2020-03-30 09:11] LABS: Absolute Basophil Count 0.06 10^3/uL (0.0-0.2); Absolute Eosinophil Count 0.13 10^3/uL (0.0-0.7); Absolute Lymphocyte Count 1.31 10^3/uL (1.2-3.4); Absolute Monocyte Count 0.53 10^3/uL (0.1-0.8); Absolute Neutrophil Count 2.12 10^3/uL (1.2-6.7); Basophils % 1.4; Eosinophils % 3.1; HCT 38.8 % (40.0-50.0); HGB 12.6 g/dL (13.5-17.5); Lymphocytes % 31.6; MCH 30.3 pg (27.0-33.0); MCHC 32.5 % (32.0-36.0); MCV 93.3 fL (80-95); MPV 8.7 fL (8.0-11.0); Monocytes % 12.8; Neutrophils % 51.1; Nucleated RBC 0 %; Platelet Count 187 10^3/uL (130-400); RBC 4.16 10^6/uL (4.36-5.78); RDW-SD 47.9 fL; WBC 4.15 10^3/uL (4.4-10.8)
[2020-03-30 10:01] LABS: Iron 75 ug/dL (65-175); Total Iron Binding Capacity 372 ug/dL (250-450); Transferrin Sat 20 % (20-55)
[2020-04-01 16:20] LABS: Magnesium 1.7 mg/dL (1.8-2.4)
--- NOTE | 2020-04-07 16:21 | W.PM.PROGNOT ---
Date of Service Date of service: 04/07/20 Time of Service: 16:21 Assessment and Plan Assessment and plan (1) Erosive esophagitis: Status: Acute (2) Epigastric abdominal pain: Status: Acute (3) Anemia due to blood loss, acute: Status: Acute (4) Hiatal hernia with GERD: Status: Acute (5) History of DVT (deep vein thrombosis): Status: Acute Assessment and plan: -pt needs repeat US of the RLE for DVT after 05/03. -His CBC from 03/30 continues to show improvement -He can decrease the Protonix to once daily and just use the carafate for prn s/s or if he takes an ibuprofen, drinks etoh, etc - he has had mult unprovoked DVT's (to the best of my knowledge) and should F/u w/ heme regarding the length of anticoagulation.
== END 2020-03-30 04:47 ==
PROVIDERS: PCP Internal Medicine; Visit Provider Surgery
DX: D62 Acute posthemorrhagic anemia (principal); K21.9 Gastro-esophageal reflux disease without esophagitis; K22.10 Ulcer of esophagus without bleeding; R10.13 Epigastric pain; K44.9 Diaphragmatic hernia without obstruction or gangrene
CPT/HCPCS: 36415; NC; 83540; 83550; 83735; 85025

== ENCOUNTER 2020-04-28 16:09 | Outpatient (REF) | payer MEDICARE, BC, SELFPAY ==
[2020-04-28 13:10] LABS: HCT 38.8 % (40.0-50.0); HGB 12.6 g/dL (13.5-17.5)
[2020-04-28 13:16] LABS: Magnesium 1.8 mg/dL (1.8-2.4)
== END 2020-04-28 16:10 | disposition home or self-care (01) ==
LOC: NCHCN 16:09
PROVIDERS: PCP Internal Medicine; Visit Provider Internal Medicine
DX: E83.42 Hypomagnesemia (principal); Z87.19 Personal history of other diseases of the digestive system
CPT/HCPCS: 83735; 85014; 85018

== ENCOUNTER 2020-04-29 00:56 | Outpatient (CLI) | payer MEDICARE, BC, SELFPAY ==
--- NOTE | 2020-04-29 | DI.US_ITS ---
EXAM: US LOWER EXTREMITY VENOUS RT CLINICAL HISTORY: H/O DVT,Z86.718,RT LEG PAIN,M79.661,SWELLING,R22.41,F/U DVT 02/01/20. TECHNIQUE: Lower extremity venous ultrasound performed using grayscale, color-flow, and spectral Do ppler analysis. COMPARISON: No exams were available for comparison FINDINGS: The common femoral, femoral and popliteal veins demonstrate normal compressibility, augmentation, and color Doppler. The posterior tibial veins are patent. No saphenous vein thrombosis or other superfi cial venous thrombosis is seen. No hematoma or Henning's cyst is seen. IMPRESSION: Negative lower extremity ultrasound. No evidence of DVT. DATA REPOSITORY:
== END 2020-04-29 00:57 ==
LOC: DI 00:57
PROVIDERS: PCP Internal Medicine; Visit Provider Internal Medicine
DX: M79.661 Pain in right lower leg (principal); R22.41 Localized swelling, mass and lump, right lower limb
CPT/HCPCS: 93971

== ENCOUNTER 2020-10-20 11:56 | Emergency (ER) | payer MEDICARE, BC, SELFPAY ==
[2020-10-20] VITALS (29 sets, daily range): BP systolic 143–179; BP diastolic 64–117; PULSE 70–98; RESP 15–31; TEMP 36.1; O2SAT 94–99
--- NOTE | 2020-10-20 12:00 | RT.EKG_ITS ---
APPROVED REPORT Exam: Resting ECG Reason for Exam: chest pain Patient Location: E HR:91 bpm ECG Measurements Heart Rate 91 AXIS AZ 168 P 50 QRSd 90 QRS -59 QT 356 T 14 QTc 440 Conclusion Sinus rhythm...normal P axis, V-rate 60- 99 Ventricular premature complex...V complex w/ short R-R interval Inferior infarct, old...Q >35mS, II III aVF. No STEMI. I have reviewed and interpreted ECG and agree with software generated interpretation.
--- NOTE | 2020-10-20 12:04 | ED.GENADUL_ITS ---
Discharge Plan Disposition Patient Disposition: HOME Condition: Stable Discharge Details Clinical Impression: COVID-19 Primary Care Provider: Yuan Tian ED Provider: Betty Culver Home Meds and New Rx's Prescriptions: Continued verapamil 240 mg capsule,ext rel. pellets 24 hr 240 mg PO DAILY RF: 0 multivitamin [Daily Multi-Vitamin] 1 EACH tablet 1 ea PO DAILY RF: 0 cholecalciferol (vitamin D3) 1,000 UNIT capsule 1,000 unit PO DAILY RF: 0 sertraline 50 MG tablet 50 mg PO DAILY RF: 0 metoprolol tartrate 100 mg tablet 50 mg PO DAILY RF: 0 latanoprost [Xalatan] 0.005 % drops 1 drp ophthalmic (eye) DAILY RF: 0 Combigan 0.2-0.5 % drops 1 drp ophthalmic (eye) BID RF: 0 Eliquis 5 mg tablet 5 mg PO BID RF: 0 pantoprazole [Protonix] 40 mg tablet,delayed release (DR/EC) 40 mg PO DAILY Qty: 60 RF: 12 sucralfate [Carafate] 1 gram tablet 1 g PO QACHS Qty: 120 RF: 12 Humira Pen 40 mg/0.8 mL pen injector kit 40 mg SUBCUT USEASDIRECTD RF: 0 losartan 50 MG tablet 50 mg PO DAILY RF: 0 Discharge Instructions Instructions: COVID-19 (Coronavirus Disease 2019) (ED) Additional Instructions: You received your monotone antibody and effusion here today. Your labs are reassuring. Please encourage hydration. Please contact your primary care and schedule close follow-up for reevaluation. If you develop difficulty breathing having the shortness of, have oxygen saturation less than 92% or have other new/worsening symptoms please seek care urgently once again. Otherwise, please continue to quarantine. Referrals: Yuan Tian MD [Primary Care Provider] - Discharge Data Discharge Date/Time-TO BE ENTERED AT DEPARTURE: 10/20/20 14:36 Medical Decision Making Patient is a pleasant 69-year-old male presenting today with chief complaint of COVID-19. Recommended by the patient's primary care provider as arrival. Patient has had progressively worsening the concerns initially wili COVID-19 1 week ago. Patient was diagnosed 4 days ago is COVID-19 positive. He was vaccinated in June.. He states that he has had persistent cough throughout the past week. Endorses shortness of breath, particularly with exertion. It has been monitoring him O2 at home, he reports lowest reading was 99% on room air. Patient currently 99% on room air. He states that yesterday he did suffer a presyncopal episode with stood up quickly. Is denying of any lightheadedness or presyncopal feelings currently. He denies palpitations. Patient is immunosuppressed with Humira for chronic iritis. Primary care sent over order for monoclonal antibody infusion. On exam, patient appears stable and nontoxic. He has clear lungs, normal cardiac exam. Dry cough noted. His O2 is normal. He was initially slightly tachycardic but this is coming down. Will obtain baseline labs. He and I again discussed MAB infusion, he had discus sed this with his PCP as well. He is in agreement with this plan. Patient reported having had a presyncopal episode yesterday, evaluated for potential PE. D-dimer within normal limits. Stable H&H. CMP reviewed for slightly low findings of 1.6. We can replenish this orally. Troponin within normal limits. Thyroid is in normal limits. No other significant abnormality. Patient received his infusion of these monoclonal antibiotics. He was monitored in department 1 hour after the infusion. We will have him follow-up with primary care to discuss continued management of his COVID-19 infection. He is maintaining back again in the high 90s. He has a pulse oximeter at home. We do not see the reason for admission at this time. Return precautions discussed. All questions and concerns were addressed and agreed HPI General Mode of arrival: ambulatory . Date/Time Provider Initiated Documentation: 10/20/20 12:03 . Limitations to Documentation: no limitations . Information obtained by: patient, RN/MD (contacted by patient's PCP, Dr. Tian, prior to arrival) and RN notes reviewed . History of Present Illness 69 year old M presents to the emergency department with the chief complaint of cough associated with known COVID-19, described as moderate, with intensity rated at 6. Quality is described as aching, and is localized to the chest (feels that coughing has increased discofmort). Patient reports no radiation. Patient started experiencing this week(s) (1 ) and it has been constant (states that symptoms have been persistant but not worsening/improving). No relieving factors improve symptom(s), No exacerbating factors reported . Patient notes chest pain (associates with cough, feels worse over diaphragm ), diaphoresis, fever/chills, shortness of breath and other (fatigue); denies headaches, nausea/vomiting and rash. Patient did receive the following treatments prior to arrival, none Related Data Home Medications Medication Instructions Recorded Confirmed cholecalciferol (vitamin D3) 1,000 unit PO DAILY 07/12/16 10/20/20 multivitamin [Daily Multi-Vitamin] 1 ea PO DAILY 07/12/16 10/20/20 losartan 50 mg PO DAILY 10/09/17 10/20/20 sertraline 50 mg PO DAILY tab-cap NS 10/18/17 10/20/20 verapamil 240 mg 24 hr 240 mg PO DAILY 11/04/18 10/20/20 capsule,extended release apixaban 5 mg tablet 5 mg PO BID 02/16/20 10/20/20 brimonidine 0.2 %-timolol 0.5 % 1 drp OPHTHALMIC (EYE) BID 02/16/20 10/20/20 eye drops latanoprost 0.005 % eye drops 1 drp OPHTHALMIC (EYE) DAILY 02/16/20 10/20/20 metoprolol tartrate 100 mg tablet 50 mg PO DAILY tab 02/16/20 10/20/20 pantoprazole [Protonix] 40 mg PO DAILY #60 tab 02/19/20 10/20/20 sucralfate [Carafate] 1 g PO QACHS #120 tab 02/19/20 10/20/20 Humira Pen 40 mg SUBCUT USEASDIRECTD 10/20/20 10/20/20 Previous Rx's Medication Instructions Recorded pantoprazole [Protonix] 40 mg PO DAILY #60 tab 02/19/20 sucralfate [Carafate] 1 g PO QACHS #120 tab 02/19/20 Allergies Allergy/AdvReac Type Severity Reaction Status Date / Time atorvastatin Allergy Mild unknown Verified 10/20/20 12:11 naproxen Allergy Mild bleeding Verified 10/20/20 12:11 methotrexate AdvReac Intermediate vomitting Unverified 10/20/20 12:11 lisinopril AdvReac Mild coughing Unverified 10/20/20 12:11 amlodipine AdvReac increased Unverified 10/20/20 12:11 BP and HR per pt/spouse 10/24/17 Penicillins AdvReac Nausea Unverified 10/20/20 12:11 Review of Systems Constitutional Constitutional: Reports as per HPI and Denies headache(s) Eyes Eyes: Reports as per HPI, Denies eye discharge and Denies irritation ENT Ears, Nose, Mouth, and Throat: Reports as per HPI and Denies headache(s) Cardiovascular Cardiovascular: Reports as per HPI, Denies chest pain and Reports dyspnea Respiratory Respiratory: Reports as per HPI, Reports cough and Reports dyspnea Gastrointestinal Gastrointestinal: Reports as per HPI, Denies abdominal pain, Denies change in bowel habits, Denies nausea and Denies vomiting Integumentary/Breasts Skin/Breast: Reports as per HPI and Denies rash Neurologic Neurologic: Reports as per HPI and Denies headache(s) [facility] Medical History (Updated 10/20/20 @ 14:21 by SEEMA Peters) Acute deep vein thrombosis (DVT) of right lower extremity most recent DVT in right foot 02/05/20 Amaurosis fugax, right eye Anemia due to blood loss, acute Arthritis of hand Black stools Calcium pyrophosphate crystal disease Depression LOVE (dyspnea on exertion) Epigastric abdominal pain Erosive esophagitis Family history of multiple endocrine neoplasia [MEN] syndrome GERD (gastroesophageal reflux disease) 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 reports for last month he has had occasional loss of vision in R eye. Pt. states PCP and opthamologist are working on it, no diagnosis at this time. 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 Obesity Ocular migraine Pain in right lower leg Pleural effusion, right Right upper quadrant abdominal pain Right-sided chest pain Tinnitus, right Tremor Unexplained weight loss Surgical History Colonoscopy - IV Sedation 2008- normal EGD - MAC (07/16/16) Hx of detached retina repair Hx of melanoma excision Thoracentesis (10/24/17) Family History (Updated 11/04/18 @ 07:03 by Frances Tate RN) Other Multiple endocrine neoplasia Social History Smoking/Tobacco Use Status: Never Smoking risk assessment performed?: Yes Alcohol Intake: current Alcohol Intake frequency: 0-2 drinks per day Alcohol type: wine and hard liquor Drug use: Never Substance use type: does not use Current gender identity: male Do you feel safe at home: Yes Do you feel safe in your relationship?: Yes Exam Const General: cooperative, comfortable, no acute distress, well developed, well groomed and ill appearing acutely (appears fatigued, frequent dry cough) Nutritional Appearance: average body habitus and well nourished Orientation: alert and awake [facility] Head: normal to inspection, normocephalic and atraumatic Ears: hearing grossly normal bilaterally and external ears normal General nose exam: external nose normal and nares normal Face and sinus: normal facial exam, sinuses nontender and face symmetric Mouth: oral mucosae normal, lip normal, tongue normal, oropharynx normal and moist mucous membranes Teeth and gingiva: dentition normal Throat: posterior oropharynx normal, tonsils normal and uvula midline Eyes General: appearance normal, both eyes and all related structures Neck Neck: normal visual inspection, full ROM, no lymphadenopathy and no meningeal signs Resp Effort & Inspection: normal respiratory effort, able to speak in complete sentences, cough Quality of cough: dry and no respiratory distress Auscultation: clear to auscultation bilaterally, no rales, no rhonchi and no wheezes Cardio Rate: regular rate Rhythm: regular rhythm Heart Sounds: S1 normal and S2 normal Skin General skin exam: no rashes or lesions noted Neuro General: patient alert and patient awake Cognition: normal cognition Speech: speech normal Gait: normal gait Extrem General: normal to inspection, capillary refill normal, no pedal edema, no calf tenderness and normal gait Psych Appearance: grossly normal and well kempt Mental Status: mental status grossly normal Speech and Movement: speech and movement normal
[2020-10-20 12:42] LABS: Abs Immature Grans 0.01 10^3/uL (0.0-0.06); Absolute Basophil Count 0.03 10^3/uL (0.0-0.2); Absolute Eosinophil Count 0.09 10^3/uL (0.0-0.7); Absolute Lymphocyte Count 1.64 10^3/uL (1.2-3.4); Absolute Neutrophil Count 2.07 10^3/uL (1.2-6.7); Basophils % 0.7; HCT 42.6 % (40.0-50.0); Immature Grans % 0.2; Lymphocytes % 36.9; MCH 30.9 pg (27.0-33.0); MCHC 32.9 % (32.0-36.0); MPV 9.1 fL (8.0-11.0); Monocytes % 13.5; Neutrophils % 46.7; Nucleated RBC 0 %; Platelet Count 180 10^3/uL (130-400); RBC 4.53 10^6/uL (4.36-5.78); RDW 13.7 % (11.8-14.1); RDW-SD 47.2 fL; WBC 4.44 10^3/uL (4.4-10.8)
[2020-10-20 13:04] LABS: ALT 47 U/L (16-63); AST 43 U/L (15-37); Albumin 3.8 g/dL (3.4-5.0); Alkaline Phosphatase 48 U/L (46-116); Anion Gap 7.5 mmol/L (3-11); BUN 12 mg/dL (7-18); Bilirubin, Total 0.4 mg/dL (0.2-1.0); CO2 28.5 mmol/L (21.0-32.0); Calcium 8.5 mg/dL (8.5-10.1); Chloride 105 mmol/L (98-107); Glucose 135 mg/dL (74-106); Magnesium 1.6 mg/dL (1.8-2.4); Potassium 3.8 mmol/L (3.5-5.1); Sodium 141 mmol/L (136-145); TSH 2.78 uIU/mL (0.36-3.74); Total Protein 8.2 g/dL (6.4-8.2)
[2020-10-20 13:06] LABS: Troponin I < 0.05 ng/mL (<0.06)
[2020-10-20 13:21] LABS: D-Dimer 287 ng/mlFEU (<500)
[2020-10-20] MEDS: Normal Saline 1,000 ML 150 ML IV (13:26)
== END 2020-10-20 14:36 | disposition home or self-care (01) ==
PROVIDERS: Emergency Provider Physician Assistant; PCP Internal Medicine
DX: U07.1 COVID-19 (principal); R07.9 Chest pain, unspecified; R55 Syncope and collapse
CPT/HCPCS: 80053; 93005; 96360; 96361; 96365; 99284; 83735; 84443; 84484; 85025; 85379; 93010

== ENCOUNTER 2020-12-20 14:34 | Outpatient (REF) | payer MEDICARE, BC, SELFPAY ==
[2020-12-20 21:58] LABS: Magnesium 1.7 mg/dL (1.8-2.4)
== END 2020-12-20 14:35 | disposition home or self-care (01) ==
LOC: NCHCN 14:34
PROVIDERS: PCP Internal Medicine; Visit Provider Internal Medicine
DX: E83.42 Hypomagnesemia (principal)
CPT/HCPCS: 83735

== ENCOUNTER 2021-04-13 16:18 | Outpatient (REF) | payer MEDICARE, BC, SELFPAY ==
[2021-04-14 00:03] LABS: COVID-19 RT-PCR UVMMC Result Negative (Negative)
== END 2021-04-13 16:19 | disposition home or self-care (01) ==
LOC: NCHCN 16:18
PROVIDERS: PCP Internal Medicine; Visit Provider Internal Medicine
DX: Z20.822 Contact with and (suspected) exposure to COVID-19 (principal)
CPT/HCPCS: U0003; U0005

== ENCOUNTER 2021-05-02 16:04 | Outpatient (REF) | payer MEDICARE, BC, SELFPAY ==
[2021-05-02 15:44] LABS: Iron 93 ug/dL (65-175); Total Iron Binding Capacity 259 ug/dL (250-450); Transferrin Sat 36 % (20-55)
[2021-05-02 16:00] LABS: ALT 101 U/L (16-63); AST 120 U/L (15-37); Albumin 3.8 g/dL (3.4-5.0); Alkaline Phosphatase 48 U/L (46-116); Anion Gap 11.1 mmol/L (3-11); BUN 8 mg/dL (7-18); Bilirubin, Total 0.4 mg/dL (0.2-1.0); CO2 26.9 mmol/L (21.0-32.0); CREATININE 0.9 mg/dL (0.70-1.30); Calcium 8.6 mg/dL (8.5-10.1); Chloride 106 mmol/L (98-107); Glucose 84 mg/dL (74-106); NT-proBNP 108 pg/mL (<300); Potassium 4.1 mmol/L (3.5-5.1); Sodium 144 mmol/L (136-145); Total Protein 7.3 g/dL (6.4-8.2)
[2021-05-02 16:08] LABS: HCT 40.4 % (40.0-50.0); HGB 13.2 g/dL (13.5-17.5); MCH 31.7 pg (27.0-33.0); MCHC 32.7 % (32.0-36.0); MCV 96.9 fL (80-95); MPV 9.6 fL (8.0-11.0); Platelet Count 192 10^3/uL (130-400); RBC 4.17 10^6/uL (4.36-5.78); RDW 14.8 % (11.8-14.1)
== END 2021-05-02 16:05 | disposition home or self-care (01) ==
LOC: NCHCN 16:04
PROVIDERS: PCP Internal Medicine; Visit Provider Internal Medicine
DX: Z86.718 Personal history of other venous thrombosis and embolism (principal); R06.09 Other forms of dyspnea; Z87.19 Personal history of other diseases of the digestive system; I10 Essential (primary) hypertension; K21.9 Gastro-esophageal reflux disease without esophagitis; F32.9 Major depressive disorder, single episode, unspecified; K92.1 Melena
CPT/HCPCS: 80053; 85027; 83540; 83550; 83880

== ENCOUNTER 2021-06-09 18:17 | Outpatient (REF) | payer MEDICARE, BC, SELFPAY ==
[2021-06-09 20:44] LABS: HCT 41.2 % (40.0-50.0); HGB 13.2 g/dL (13.5-17.5); MCH 30.6 pg (27.0-33.0); MCV 95.6 fL (80-95); MPV 9.7 fL (8.0-11.0); Platelet Count 264 10^3/uL (130-400); RBC 4.31 10^6/uL (4.36-5.78); RDW 13.2 % (11.8-14.1); RDW-SD 46.9 fL; WBC 5.52 10^3/uL (4.4-10.8)
[2021-06-09 20:59] LABS: ALT 30 U/L (16-63); AST 18 U/L (15-37); Albumin 3.8 g/dL (3.4-5.0); Alkaline Phosphatase 54 U/L (46-116); Bilirubin, Direct 0.1 mg/dL (0.0-0.2); Bilirubin, Total 0.3 mg/dL (0.2-1.0); Total Protein 7.4 g/dL (6.4-8.2)
[2021-06-11 01:55] LABS: COVID-19 RT-PCR UVMMC Result Negative (Negative)
[2021-06-12 10:47] LABS: Hepatitis C Ab w Rflx HCV PCR Negative (Negative)
== END 2021-06-09 18:18 | disposition home or self-care (01) ==
LOC: NCHCN 18:17
PROVIDERS: PCP Internal Medicine; Visit Provider Internal Medicine
DX: I10 Essential (primary) hypertension (principal); E83.42 Hypomagnesemia; D52.9 Folate deficiency anemia, unspecified; Z20.822 Contact with and (suspected) exposure to COVID-19; Z11.59 Encounter for screening for other viral diseases
CPT/HCPCS: 80076; 85027; 86803; U0003; U0005

== ENCOUNTER → 2021-10-03 02:42 | Outpatient (CLI) | payer MEDICARE, BC, SELFPAY ==
--- NOTE | 2021-10-03 | DI.RAD_ITS ---
Exam(s) XR FOREARM LT XR ELBOW LT COMPLETE EXAM: XR FOREARM LT and XR elbow LT complete CLINICAL HISTORY: LEFT FOREARM PAIN, M79.632, TRAUMA, PAIN, SWELLING. TECHNIQUE: 2D digital imaging was performed of the left forearm. Five views were obtained. AP and lateral views were obtained. COMPARISON: CR XR ELBOW LT COMPLETE from 10/03/2021 FINDINGS: BONES: No acute fracture is present. No bony destructive lesion is seen. Visualized portion of the wr ist is unremarkable. SOFT TISSUE: There is soft tissue swelling along the dorsum of the forearm. No radiopaque foreign ezekiel dy is seen. IMPRESSION: 1. No acute fracture or dislocation. 2. Soft tissue swelling along the dorsum of the forearm. This can be seen with a hematoma or edema. Soft tissue mass cannot be excluded. Please correlate with the clinical history and follow-up accor william. DATA REPOSITORY: RADIATION DOSE DELIVERED:
== END ==
PROVIDERS: PCP Internal Medicine; Visit Provider Internal Medicine
DX: S59.912A Unspecified injury of left forearm, initial encounter (principal); M79.89 Other specified soft tissue disorders; X58.XXXA Exposure to other specified factors, initial encounter
CPT/HCPCS: 73080; 73090

== ENCOUNTER 2022-01-01 16:40 | Inpatient (IN) | payer MEDICARE, BC, SELFPAY ==
[2022-01-01] VITALS (72 sets, daily range): BP systolic 136–187; BP diastolic 63–87; PULSE 65–85; RESP 17–27; TEMP 36.6; O2SAT 94–99
--- NOTE | 2022-01-01 16:45 | RT.EKG_ITS ---
APPROVED REPORT Exam: Resting ECG Reason for Exam: possible stroke Patient Location: E HR:77 bpm ECG Measurements Heart Rate 77 AXIS SD 200 P 60 QRSd 96 QRS -44 QT 390 T 1 QTc 442 Conclusion Sinus rhythm...normal P axis, V-rate 60- 99 Left axis deviation...QRS axis (-30,-90)
--- NOTE | 2022-01-01 17:00 | DI.CT_ITS ---
Exam(s) CT BRAIN NECK CTA EXAM: CT BRAIN NECK CTA CLINICAL HISTORY: R arm clumsiness, weakness. TECHNIQUE: Imaging Protocol: Axial CT angiography was performed with multi-slice acquisition and mu lti-planar and/or 3D reconstructions. CONTRAST MATERIAL: Intravenous: Omnipaque 350 Contrast volume:structured data in ml COMPARISON: CT CTA THORAX from 10/09/2017 FINDINGS: CTA Neck W: Aortic arch anatomy: The aortic arch anatomy is conventional and there is no significant stenosis at the origin of the great vessels off of the aortic arch. No intimal flap evident. Anterior circulation: Both common carotid arteries ascend with normal luminal diameters. At the level the carotid bulbs there is both calcified and noncalcified plaque bilaterally, extending into the internal carotid arteries bilaterally. On the left side there is approximately 30-40 perce nt focal stenosis in the proximal left ICA. On the right side there is approximately 10-15 percent s tenosis. Above this level both internal carotid arteries appear nicely patent in the upper neck. No dissection. Posterior circulation: Vertebral arteries originated conventional fashion off of the subclavian arteries and there is no obv ious stenosis at the origin of the vertebral arteries. Both vertebral arteries are patent in the foramen transverse area. Left vertebral artery is dominant . At the skull base both appear to contribute to the formation of the basilar artery. CTA Brain W: Anterior circulation: Both internal carotid arteries are patent in the skull base-carotid canals as well as within the cave rnous sinuses. The supraclinoid aspects of the ICAs are patent. Both A1 segments are patent as are the anterior cer ebral arteries and there is no evidence of aneurysm at the level of the anterior communicating artery . Both middle cerebral arteries are patent with no evidence of significant stenosis nor intraluminal th rombus. There also no aneurysms of these vessels. Posterior circulation: The basilar artery ascends in the midline. Distally it gives off patent bilateral superior cerebella r arteries. Above this level the basilar artery terminates as patent left posterior cerebral artery. The right p osterior cerebral artery is predominantly supplied by posterior communicating artery on the right larry e of the [id number]-rx-Hbfied. There is no evidence of aneurysm at the tip of the basilar artery nor elsewhere in the wknaoo-fz-Lbga is. CT BRAIN: There is no evidence of intracranial hemorrhage, mass effect, or shift of midline structures. There are no extra-axial fluid collections. Ventricles are not enlarged or shifted. There are no ring enh ancing lesions in the brain and no abnormal meningeal enhancement. There is some mild bilateral periventricular hypodensity consistent with chronic small vessel disease . IMPRESSION: 1. There is both calcified and noncalcified plaque at the carotid bulb and proximal internal carotid arteries on both sides of the neck. There is approximately 30-40 percent stenosis on the left side a t this level and on the right side a lesser amount of stenosis approximated at 10-15 percent. 2. Patent vertebral arteries. 3. Patent intracranial arteries. No aneurysms evident. 4. No ring enhancing lesions in the brain and no abnormal meningeal enhancement. However, there is s ome periventricular hypodensity consistent with chronic small-vessel white matter ischemic changes. RADIATION DOSE DELIVERED: 3,122.18mGy.cm Total DLP DATA REPOSITORY: All CT scans at this facility are submitted to the National Radiology Data Registry (NRDR) Dose Index Registry (DIR) with the [employer] (A[employer]). RADIATION OPTIMIZATION: All CT scans at this facility use at least one of these dose optimization te chniques: automated exposure control; mA and/or kV adjustment per patient size (includes targeted exa ms where dose is matched to clinical indication); or iterative reconstruction.
--- NOTE | 2022-01-01 17:02 | ED.GENADUL_ITS ---
Discharge Plan Disposition Patient Disposition: [facility] INPATIENT Condition: Improving Discharge Details Clinical Impression: Acute CVA (cerebrovascular accident) Admit Date/Time: 01/01/22 19:34 Admit Provider: Vitaliy Hutchins Attending Provider: Vitaliy Hutchins Primary Care Provider: Yuan Tian ED Provider: Kyaw Bethea Medical Decision Making This is a 71-year-old male, on apixaban for history of DVT, who presents with his . He awoke this morning proxy 730 with right hand and arm numbness and mild weakness. It progressed to some mild clumsiness and inability to use a television remote over the afternoon hours. Family presents approximately 5 PM to the ER. Patient had no facial droop, no difficulty with speech and has had a normal gait. Arrives to the ER afebrile, interactive. There is some dysmetria of the right upper extremity, otherwise the neurologic exam is reassuring. Concern for CVA. Patient had IV access established, referred for laboratory testing, CT scan of the head and screening chest x-ray. CT scan of the head shows no acute intracranial findings or evidence of occlusion/stenosis. See the formal report. Chest x-ray HPI General Date/Time Provider Initiated Documentation: 01/01/22 16:41 . Limitations to Documentation: no limitations . Information obtained by: patient and family . History of Present Illness 71 year old M presents to the emergency department with the chief complaint of Clumsiness, weakness, numbness since waking up, described as mild, Quality is described as constant, and is localized to the right and upper extremity. Patient reports no radiation. Patient started experiencing this hour(s) and it has been constant. No relieving factors improve symptom(s), No exacerbating factors reported . Patient notes cough and weakness; denies headaches. Patient did receive the following treatments prior to arrival, none Related Data Home Medications Medication Instructions Recorded Confirmed cholecalciferol (vitamin D3) 25 1,000 unit PO DAILY 07/12/16 01/01/22 mcg (1,000 unit) capsule multivitamin (Daily Multi-Vitamin 1 ea PO DAILY 07/12/16 01/01/22 tablet) losartan 50 mg tablet 50 mg PO DAILY 10/09/17 01/01/22 sertraline 50 mg tablet 50 mg PO DAILY 10/18/17 01/01/22 verapamil 240 mg 24 hr 240 mg PO DAILY 11/04/18 01/01/22 capsule,extended release apixaban 5 mg tablet (Eliquis) 2.5 mg PO BID 02/16/20 01/01/22 brimonidine 0.2 %-timolol 0.5 % 1 drp ophthalmic (eye) BID 02/16/20 01/01/22 eye drops (Combigan) latanoprost 0.005 % eye drops 1 drp ophthalmic (eye) DAILY 02/16/20 01/01/22 (Xalatan) metoprolol tartrate 100 mg tablet 50 mg PO DAILY 02/16/20 01/01/22 sucralfate 1 gram tablet (Carafate) 1 g PO QACHS #120 tabs 02/19/20 01/01/22 pantoprazole 40 mg tablet,delayed See Rx Instructions .Route 05/30/21 01/01/22 release .COMPLEX #90 tabs Previous Rx's Medication Instructions Recorded sucralfate 1 gram tablet (Carafate) 1 g PO QACHS #120 tabs 02/19/20 pantoprazole 40 mg tablet,delayed See Rx Instructions .Route 05/30/21 release .COMPLEX #90 tabs Allergies Allergy/AdvReac Type Severity Reaction Status Date / Time atorvastatin Allergy Mild unknown Verified 01/01/22 16:55 naproxen Allergy Mild bleeding Verified 01/01/22 16:55 methotrexate AdvReac Intermediate vomitting Unverified 01/01/22 16:55 lisinopril AdvReac Mild coughing Unverified 01/01/22 16:55 amlodipine AdvReac increased Unverified 01/01/22 16:55 BP and HR per pt/spouse 10/24/17 Penicillins AdvReac Nausea Unverified 01/01/22 16:55 General Stated Complaint: CVA/TIA JAYCE: 2 Review of Systems Narrative: Cough for 2 days. [place] normal at 2 AM and then awoke with right arm numbness and weakness, clumsiness through the day. No facial droop, no difficulty with speech or gait. 8 systems were reviewed PFSH All Active Problems COVID-19 (Acute) Acute CVA (cerebrovascular accident) (Acute) Erosive esophagitis (Acute) Glaucoma associated with ocular disorder (Acute) Psoriasis (Chronic) Normal colonoscopy (Acute) Triage assessment class 1, emergent (Acute) Epigastric abdominal pain (Acute) Black stools (Acute) Anemia due to blood loss, acute (Acute) Hiatal hernia with GERD (Acute) History of DVT (deep vein thrombosis) (Acute) Hearing loss (Acute) pt denies Depression (Chronic) GERD (gastroesophageal reflux disease) (Chronic) Ocular migraine (Acute) Medical History Acute deep vein thrombosis (DVT) of right lower extremity most recent DVT in right foot 02/05/20 Amaurosis fugax, right eye 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 reports for last month he has had occasional loss of vision in R eye. Pt. states PCP and opthamologist are working on it, no diagnosis at this time. 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 Obesity Pain in right lower leg Pleural effusion, right Right upper quadrant abdominal pain Right-sided chest pain Tinnitus, right Tremor Unexplained weight loss Surgical History Colonoscopy - IV Sedation 2007- normal EGD - MAC (07/16/16) Hx of detached retina repair Hx of melanoma excision Thoracentesis (10/24/17) Family History Other Multiple endocrine neoplasia Social History Smoking/Tobacco Use Status: Never Smoking risk assessment performed?: Yes Alcohol Intake: current Alcohol Intake frequency: 0-2 drinks per day Alcohol type: hard liquor Drug use: Never Substance use type: does not use Current gender identity: male Do you feel safe at home: Yes Do you feel safe in your relationship?: Yes Exam Narrative Exam Narrative: GEN: awake, alert, oriented 3. Pleasant, well groomed, interactive. HEAD: Normocephalic, atraumatic ENT: Mucous membranes moist, oropharynx unremarkable, External ear exam unremarkable EYES: PERRL, EOMI NECK: Full ROM, no MARGARET, no menigismus CHEST/RESP: Nontender, clear to auscultation bilateral, no wheeze/rhonchi/rales CARDIOVASCULAR: RRR, no murmur, rub lisa. 2+ Rad pulse bilateral ABDOMEN: Soft, nontender, no mass. +Bowel sounds EXT: Full ROM, no edema, no rash Neuro: Grossly normal neurologic exam, conversant, interactive. Cranial nerves II through XII intact. Right hand [id number] is clumsy/dysmetria present. Romberg reveals slight right arm drift. No other focal deficits noted. Psych: Speech fluent, thoughts congruent, affect normal Course Vital Signs Vital signs: Vital Signs Pulse 75 01/01/22 16:43 Respiratory Rate 18 01/01/22 16:43 Blood Pressure 187/87 H 01/01/22 16:43 Pulse Oximetry 99 01/01/22 16:43 Pulse 75 01/01/22 16:43 Respiratory Rate 18 01/01/22 16:51 Respiratory Effort Non-Labored 01/01/22 16:51 Respiratory Depth Normal 01/01/22 16:51 Respiratory Pattern Normal 01/01/22 16:51 Blood Pressure 187/87 H 01/01/22 16:43 Blood Pressure Position Sitting 01/01/22 16:43 Pulse Oximetry 99 01/01/22 16:43 Oxygen Delivery Method Room Air 01/01/22 16:43 Oxygen Flow Rate 0 01/01/22 16:43 Pain Level 0 01/01/22 16:43
[2022-01-01 17:12] LABS: Abs Immature Grans 0.02 10^3/uL (0.0-0.06); Absolute Basophil Count 0.04 10^3/uL (0.0-0.2); Absolute Lymphocyte Count 1.68 10^3/uL (1.2-3.4); Absolute Monocyte Count 1.02 10^3/uL (0.1-0.8); Absolute Neutrophil Count 4.69 10^3/uL (1.2-6.7); Basophils % 0.5; Eosinophils % 2.6; HCT 37.6 % (40.0-50.0); HGB 12.4 g/dL (13.5-17.5); Immature Grans % 0.3; MCH 30.2 pg (27.0-33.0); MCV 92 fL (80-95); MPV 9.1 fL (8.0-11.0); Monocytes % 13.3; Neutrophils % 61.3; Platelet Count 196 10^3/uL (130-400); RBC 4.11 10^6/uL (4.36-5.78); RDW 13.5 % (11.8-14.1); RDW-SD 45.6 fL; WBC 7.65 10^3/uL (4.4-10.8)
[2022-01-01 17:27] LABS: PTT Activated 26.5 sec (21.0-27.5); Prothrombin Time 9.9 sec (9.3-11.0)
[2022-01-01 17:34] LABS: ALT 23 U/L (16-63); AST 20 U/L (15-37); Alkaline Phosphatase 50 U/L (46-116); Anion Gap 9.8 mmol/L (3-11); BUN 14 mg/dL (7-18); Bilirubin, Total 0.6 mg/dL (0.2-1.0); CO2 27.2 mmol/L (21.0-32.0); Chloride 101 mmol/L (98-107); Estimated GFR 80.47 (mL/min/1.73m2); Glucose 91 mg/dL (74-106); Magnesium 1.5 mg/dL (1.8-2.4); Potassium 3.7 mmol/L (3.5-5.1); Sodium 138 mmol/L (136-145); Total Protein 7.9 g/dL (6.4-8.2); Troponin I < 50 ng/L (<or=60)
--- NOTE | 2022-01-01 17:36 | SUR.PHASEI ---
pt with some right sided weakness noted pt states has had a vision deficit on the right for years
[2022-01-01 17:38] LABS: ETHANOL BLOOD < 3.0 mg/dL (<10)
[2022-01-01] MEDS: Omnipaque 350 MG/ML 500 ML BTL-Imaging package IJ (17:38)
--- NOTE | 2022-01-01 17:51 | DI.RAD_ITS ---
Exam(s) XR PORTABLE CHEST AP EXAM: XR PORTABLE CHEST AP CLINICAL HISTORY: R arm clumsiness. TECHNIQUE: 2D digital imaging was performed. COMPARISON: Chest x-ray 02/14/2018 FINDINGS: Single AP portable view. Heart size is upper normal. The mediastinum is not widened. However, there is a moderate-large size hiatal hernia which has increased in size from the previous study. Lungs are clear. No infiltrates nor obvious pleural effusions. IMPRESSION: No acute pulmonary findings on this single AP portable view of the chest. Moderate-large size hiatal hernia noted. DATA REPOSITORY: RADIATION DOSE DELIVERED:
[2022-01-01] MEDS: MAGNESIUM SULFATE 2 GM/50 ML BAG IVPB (18:09)
[2022-01-01 18:13] LABS: Bilirubin Negative (Negative); Blood Trace-lysed (Negative); Clarity Clear (Clear); Glucose Negative (Negative); Ketones Trace mg/dL (Negative); Leukocyte Esterase Negative (Negative); Nitrite Negative (Negative); Urobilinogen 0.2 EU/dL (Up TO 0.2)
--- NOTE | 2022-01-01 18:18 | DI.VRAD_ITS ---
PROCEDURE INFORMATION: Exam: CT Head Without Contrast Exam date and time: 01/01/2022 5:29 PM Age: 71 years old Clinical indication: R arm clumsiness, weakness TECHNIQUE: Imaging protocol: Computed tomography of the head without contrast. COMPARISON: US CAROTID 12/31/2018 2:25 PM FINDINGS: Brain: There is no acute intracranial hemorrhage, mass effect or midline shift. No large acute territorial infarct identified. There are patchy regions of hypodensity in the periventricular and subcortical white matter, likely on the basis of chronic microvascular ischemic disease. Foci of calcification noted in the left occipital lobe. Cerebral ventricles: The ventricles and sulci are prominent in size, which is at least in part due to global cerebral volume loss. Paranasal sinuses: There is mild mucosal thickening in the ethmoid and maxillary sinuses. Mastoid air cells: The mastoid air cells are unremarkable. Bones/joints: Unremarkable. No acute fracture. Soft tissues: Unremarkable. IMPRESSION: No acute intracranial hemorrhage, mass effect or midline shift. PROCEDURE INFORMATION: Exam: CTA Head With Contrast, Arteriography Exam date and time: 01/01/2022 5:29 PM Age: 71 years old Clinical indication: R arm clumsiness, weakness TECHNIQUE: Imaging protocol: Computed tomographic angiography of the head with contrast. Exam focused on the arteries. 3D rendering (Not supervised by radiologist): MIP and/or 3D reconstructed images were created by the technologist. Radiation optimization: All CT scans at this facility use at least one of these dose optimization techniques: automated exposure control; mA and/or kV adjustment per patient size (includes targeted exams where dose is matched to clinical indication); or iterative reconstruction. Contrast material: 350; Contrast volume: 85 ml; Contrast route: INTRAVENOUS (IV); COMPARISON: No relevant prior studies available. FINDINGS: ANTERIOR CIRCULATION: Right internal carotid artery: Intracranial segment is patent with no significant stenosis. No aneurysm. Right middle cerebral artery: No occlusion or significant stenosis. No aneurysm. Right anterior cerebral artery: No occlusion or significant stenosis. No aneurysm. Left internal carotid artery: Intracranial segment is patent with no significant stenosis. No aneurysm. Left middle cerebral artery: No occlusion or significant stenosis. No aneurysm. Left anterior cerebral artery: No occlusion or significant stenosis. No aneurysm. POSTERIOR CIRCULATION: Right vertebral artery: No occlusion or significant stenosis. No aneurysm. Left vertebral artery: No occlusion or significant stenosis. No aneurysm. Basilar artery: No occlusion or significant stenosis. No aneurysm. Right posterior cerebral artery: No occlusion or significant stenosis. No aneurysm. Left posterior cerebral artery: No occlusion or significant stenosis. No aneurysm. Brain: No definite mass, mass effect, or midline shift. Cerebral ventricles: No ventriculomegaly. Bones/joints: Unremarkable. No acute fracture. Soft tissues: Unremarkable. IMPRESSION: No large vessel stenosis or occlusion. PROCEDURE INFORMATION: Exam: CTA Neck With Contrast Exam date and time: 01/01/2022 5:29 PM Age: 71 years old Clinical indication: R arm clumsiness, weakness TECHNIQUE: Imaging protocol: Computed tomographic angiography of the neck with contrast. 3D rendering (Not supervised by radiologist): MIP and/or 3D reconstructed images were created by the technologist. Radiation optimization: All CT scans at this facility use at least one of these dose optimization techniques: automated exposure control; mA and/or kV adjustment per patient size (includes targeted exams where dose is matched to clinical indication); or iterative reconstruction. Contrast material: 350; Contrast volume: 85 ml; Contrast route: INTRAVENOUS (IV); COMPARISON: US CAROTID 12/31/2018 2:25 PM FINDINGS: Right common carotid artery: No stenosis. No dissection or occlusion. Right internal carotid artery: No stenosis of the extracranial segment. No dissection or occlusion. Right external carotid artery: No occlusion or stenosis of the origin. Left common carotid artery: No stenosis. No dissection or occlusion. Left internal carotid artery: There is approximately 30% stenosis at the proximal left internal carotid artery, secondary to atherosclerotic disease. No dissection or occlusion. Left external carotid artery: No occlusion or stenosis of the origin. Right vertebral artery: No stenosis. No dissection or occlusion. Left vertebral artery: No stenosis. No dissection or occlusion. Soft tissues: Normal. No significant soft tissue swelling. Bones/joints: No acute fracture. IMPRESSION: No significant carotid stenosis. No arterial occlusion or dissection. REFERENCES: NASCET CRITERIA. The degree of stenosis in the cervical segment of the internal carotid artery is based on NASCET criteria. Normal is no stenosis. Mild is less than 50% stenosis. Moderate is 50-69% stenosis. Severe is 70% to 99% stenosis. Total occlusion is no detectable patent lumen. Dictated and Authenticated by: Sivan Bar MD. Ordering:RAQUEL Card MD
[2022-01-01 18:28] LABS: Epithelial Cells Rare HPF (Negative); WBC 0-2 HPF (0-5)
[2022-01-01 18:29] LABS: Bacteria Rare HPF (Negative); C & S Indicated? No; Casts Negative LPF (Negative); Crystals Negative HPF (Negative); Mucus Negative (Negative)
--- NOTE | 2022-01-01 18:30 | DI.VRAD_ITS ---
PROCEDURE INFORMATION: Exam: XR Chest Exam date and time: 01/01/2022 5:44 PM Age: 71 years old Clinical indication: R arm clumsiness TECHNIQUE: Imaging protocol: Radiologic exam of the chest. Views: 1 view. COMPARISON: CR XR CHEST 2V PA LATERAL 02/14/2018 1:30 PM FINDINGS: Lungs: No consolidation. Pleural spaces: No pneumothorax. A small left pleural effusion is not excluded. Heart/Mediastinum: The heart appears slightly enlarged, which is at least in part due to AP technique. Bones/joints: Unremarkable. IMPRESSION: No definite consolidation. Dictated and Authenticated by: Sivan Bar MD. Ordering:RAQUEL Card MD
[2022-01-01 18:37] LABS: *AMPHETAMINES SCREEN URINE Negative (Negative); *BARBITURATES SCREEN URINE Negative (Negative); *BENZODIAZEPINES SCREEN URINE Negative (Negative); Cannabinoids THC Negative (Negative); Cocaine Screen,Urine Negative (Negative); METHADONE URINE SCREEN Negative (Negative); OPIATES URINE SCREEN Negative (Negative)
[2022-01-01 18:38] LABS: Tricyclic Antidepressants Negative (Negative)
--- NOTE | 2022-01-01 19:22 | W.PM.HP.N ---
Date of service: 01/01/22 Time of Service: : Assessment and Plan Assessment and plan (1) Acute CVA (cerebrovascular accident): Status: Acute Assessment and plan: Pure motor stroke, likely lacunar in internal capsule or deep white matter otherwise. Will begin ASA (low dose in light of concomitant DOAC), permissive HTN for tonight, then aggressive BP control moving forward, and obtain MRI in AM. 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 Through the day has gotten somewhat better, but still notes significant clumsiness in hand, unable to manipulate phone or write. In ER initial findings of note for right pronator drift and hand clumsiness. Lab of note for head CTA showing no brain lesions and no significant stenosis. I was asked to evaluate for admission. Does note some global DE OLIVEIRA, unusual for him. No visual change, no change in speech or language, no weakness RLE and no sensory changes. Review of Systems Narrative: p[er HPI PFSH All Active Problems COVID-19 (Acute) Acute CVA (cerebrovascular accident) (Acute) Erosive esophagitis (Acute) Glaucoma associated with ocular disorder (Acute) Psoriasis (Chronic) Normal colonoscopy (Acute) Triage assessment class 1, emergent (Acute) Epigastric abdominal pain (Acute) Black stools (Acute) Anemia due to blood loss, acute (Acute) Hiatal hernia with GERD (Acute) History of DVT (deep vein thrombosis) (Acute) Hearing loss (Acute) pt denies Depression (Chronic) GERD (gastroesophageal reflux disease) (Chronic) Ocular migraine (Acute) Medical History Acute deep vein thrombosis (DVT) of right lower extremity most recent DVT in right foot 02/05/20 Amaurosis fugax, right eye 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 reports for last month he has had occasional loss of vision in R eye. Pt. states PCP and opthamologist are working on it, no diagnosis at this time. 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 Obesity Pain in right lower leg Pleural effusion, right Right upper quadrant abdominal pain Right-sided chest pain Tinnitus, right Tremor Unexplained weight loss Surgical History Colonoscopy - IV Sedation 2008- normal EGD - MAC (07/16/16) Hx of detached retina repair Hx of melanoma excision Thoracentesis (10/24/17) Family History Other Multiple endocrine neoplasia Social History Smoking/Tobacco Use Status: Never Smoking risk assessment performed?: Yes Alcohol Intake: current Alcohol Intake frequency: 0-2 drinks per day Alcohol type: hard liquor Drug use: Never Substance use type: does not use Current gender identity: male Do you feel safe at home: Yes Do you feel safe in your relationship?: Yes Meds Allergies and Home Medications Allergies Allergy/AdvReac Type Severity Reaction Status Date / Time atorvastatin Allergy Mild unknown Verified 01/01/22 16:55 naproxen Allergy Mild bleeding Verified 01/01/22 16:55 methotrexate AdvReac Intermediate vomitting Unverified 01/01/22 16:55 lisinopril AdvReac Mild coughing Unverified 01/01/22 16:55 amlodipine AdvReac increased Unverified 01/01/22 16:55 BP and HR per pt/spouse 10/24/17 Penicillins AdvReac Nausea Unverified 01/01/22 16:55 Home Medications Medication Instructions Recorded Confirmed Type cholecalciferol (vitamin D3) 25 1,000 unit PO DAILY 07/12/16 01/01/22 History mcg (1,000 unit) capsule multivitamin (Daily Multi-Vitamin 1 ea PO DAILY 07/12/16 01/01/22 History tablet) losartan 50 mg tablet 50 mg PO DAILY 10/09/17 01/01/22 History sertraline 50 mg tablet 50 mg PO DAILY 10/18/17 01/01/22 History verapamil 240 mg 24 hr 240 mg PO DAILY 11/04/18 01/01/22 History capsule,extended release apixaban 5 mg tablet (Eliquis) 2.5 mg PO BID 02/16/20 01/01/22 History brimonidine 0.2 %-timolol 0.5 % 1 drp ophthalmic (eye) BID 02/16/20 01/01/22 History eye drops (Combigan) latanoprost 0.005 % eye drops 1 drp ophthalmic (eye) DAILY 02/16/20 01/01/22 History (Xalatan) metoprolol tartrate 100 mg tablet 50 mg PO DAILY 02/16/20 01/01/22 History sucralfate 1 gram tablet (Carafate) 1 g PO QACHS #120 tabs 02/19/20 01/01/22 Rx pantoprazole 40 mg tablet,delayed See Rx Instructions .Route 05/30/21 01/01/22 Rx release .COMPLEX #90 tabs Exam Narrative Exam Narrative: 162/82, 78, 36.1, 25, 96% RA. HEENT atraumatic; neck supple w/o bruit; lungs clear; heart RRR; abdomen soft and NT; extremities w/o edema; neuro Ox3, lucid, fluent; PERRL, EOMI, gutierrez full; no facila asymmetry, tongue midline; motor 5/5 , w/o pronator drift on right, thumb-fingers fair- poor on right, handwriting (right) poor; sensory intact light touch, toes downgoing Results Labs Result diagrams: 01/01/22 17:02 01/01/22 17:02 Labs: Laboratory Results - last 24 hr 01/01/22 01/01/22 01/01/22 17:02 17:02 17:02 WBC 7.65 RBC 4.11 L Hgb 12.4 L Hct 37.6 L MCV 92 MCH 30.2 MCHC 33.0 RDW 13.5 Plt Count 196 MPV 9.1 Immature Gran % 0.3 Neutrophils % 61.3 Lymphocytes % 22.0 Monocytes % 13.3 Eosinophils % 2.6 Basophils % 0.5 Nucleated RBC % 0.0 Absolute Neutrophils 4.69 Absolute Lymphocytes 1.68 Absolute Monocytes 1.02 H Absolute Eosinophils 0.20 Absolute Basophils 0.04 PT 9.9 INR 1.0 APTT 26.5 Sodium 138 Potassium 3.7 Chloride 101 Carbon Dioxide 27.2 Anion Gap 9.8 BUN 14 Creatinine 1.0 Est GFR (CKD-EPI 2020) 80.47 Glucose 91 Calcium 9.0 Magnesium 1.5 L Total Bilirubin 0.6 AST 20 ALT 23 Alkaline Phosphatase 50 Troponin I < 50 Total Protein 7.9 Albumin 4.0 Urine Color Urine Clarity Urine pH Ur Specific [place] Urine Protein Urine Ketones Urine Blood Urine Nitrite Urine Bilirubin Urine Urobilinogen Ur Leukocyte Esterase Urine RBC Urine WBC Ur Epithelial Cells Urine Crystals Urine Bacteria Urine Casts Urine Mucus Ur Culture Indicated? Urine Glucose Urine Opiates Screen Urine Methadone Screen Ur Barbiturates Screen Ur Tricyclics Screen Ur Amphetamines Screen U Benzodiazepines Scrn Urine Cocaine Screen Ur THC Screen Ethyl Alcohol < 3.0 01/01/22 01/01/22 18:00 18:00 WBC RBC Hgb Hct MCV MCH MCHC RDW Plt Count MPV Immature Gran % Neutrophils % Lymphocytes % Monocytes % Eosinophils % Basophils % Nucleated RBC % Absolute Neutrophils Absolute Lymphocytes Absolute Monocytes Absolute Eosinophils Absolute Basophils PT INR APTT Sodium Potassium Chloride Carbon Dioxide Anion Gap BUN Creatinine Est GFR (CKD-EPI 2020) Glucose Calcium Magnesium Total Bilirubin AST ALT Alkaline Phosphatase Troponin I Total Protein Albumin Urine Color Yellow Urine Clarity Clear Urine pH 6.0 Ur Specific [place] 1.010 Urine Protein Negative Urine Ketones Trace H Urine Blood Trace-lysed H Urine Nitrite Negative Urine Bilirubin Negative Urine Urobilinogen 0.2 Ur Leukocyte Esterase Negative Urine RBC 3-5 H Urine WBC 0-2 Ur Epithelial Cells Rare Urine Crystals Negative Urine Bacteria Rare Urine Casts Negative Urine Mucus Negative Ur Culture Indicated? No Urine Glucose Negative Urine Opiates Screen Negative Urine Methadone Screen Negative Ur Barbiturates Screen Negative Ur Tricyclics Screen Negative Ur Amphetamines Screen Negative U Benzodiazepines Scrn Negative Urine Cocaine Screen Negative Ur THC Screen Negative Ethyl Alcohol Last Vital Signs Pulse 67 01/01/22 17:17 Resp 25 H 01/01/22 18:20 BP 162/82 H 01/01/22 17:17 Pulse Ox 96 01/01/22 18:20
[2022-01-01 20:19] LABS: Troponin I < 50 ng/L (<or=60)
[2022-01-01] MEDS: Aspirin 325 MG TAB PO (20:35)
[2022-01-01 22:16] LABS: COVID-19 PCR Negative (Negative); Influenza A PCR Negative (Negative); Influenza B PCR Negative (Negative); RSV PCR Negative (Negative)
[2022-01-01 22:19] LABS: Source Nasopharynx
[2022-01-02] VITALS (8 sets, daily range): BP systolic 127–160; BP diastolic 73–84; PULSE 67–80; RESP 18–22; TEMP 36.2–37.4; O2SAT 95–98
--- NOTE | 2022-01-02 | DI.US_ITS ---
APPROVED REPORT EXAM: Comprehensive 2D, Doppler, and color-flow Echocardiogram Patient Location: In-Patient Room/Bed: [facility] [employer] Coach: Priscilla Tomas RDCS (AE) Indications: CVA Echo Enhancing Agent Indication: Rule out Shunt Agent(s) / Amount(s) Used: Agitated Saline 30.0 cc Comments: Contrast study was performed with 3 IV injections of 10ccs of agitated normal saline, at [facility], with cough and post valsalva maneuver. Negative contrast study for shunt flow. Other Information Study Quality: Adequate Conclusion Normal left ventricular wall thickness and chamber size. Estimated ejection fraction is 60%. Wall m otion is normal Normal right ventricular size and systolic function Both atria are normal in size No intracardiac shunting is identified with administration of agitated saline There is no structural or hemodynamically significant valvular disease Wall motion Left Ventricle The left ventricle is normal size. The left ventricular systolic function is normal. The left ventric ular ejection fraction is within the normal range. There is normal left ventricular wall thickness. T here is normal LV segmental wall motion. There is no ventricular septal defect visualized. LVEF is 60 %. Right Ventricle The right ventricle is normal size. The right ventricular systolic function is normal. Atria The left atrium size is normal. The right atrium size is normal. The interatrial septum is intact wit h no evidence for an atrial septal defect. Saline bubble contrast intravenous injection does not demo nstrate PFO. Aortic Valve The aortic valve is normal in structure. Aortic valve is trileaflet. There is no aortic valvular sten osis. No aortic regurgitation is present. Mitral Valve The mitral valve is normal in structure. No evidence of mitral valve stenosis. Trace to mild mitral r egurgitation. Tricuspid Valve The tricuspid valve is normal in structure. There is no tricuspid valve stenosis. Trace tricuspid reg urgitation. Unable to assess PA pressure. Pulmonic Valve The pulmonary valve is normal in structure. There is no pulmonic valvular stenosis. There is no pulmo jadon valvular regurgitation. Great Vessels The aortic root is normal in size. The ascending aorta is normal in size. Aortic arch is normal in ca liber. IVC is normal in size and collapses >50% with inspiration. Pericardium There is no pericardial effusion. 2D Dimensions IVSD d PLAX 0.96 cm M: 0.6-1.2 LV Vol A2C d MOD 107.5 mL LVPW d PLAX 0.92 cm M: 0.6 - 1.2 LV Vol A4C d MOD 84.2 mL LVID d PLAX 4.88 cm M: 4.2 - 5.8 LA vol/ BSA A2C s A-L 28.3 mL/m2 LVDs 3.35 cm M: 2.5 - 4.0 LA vol/ BSA A4C s A-L 17.6 mL/m2 Ao Root d 3.46 cm M: 3.1 - 3.7 LA Vol/ BSA Biplane s A-L 22.5 mL/m2 RA Area A4C 15.40 cm2 LA Area A4C s MOD 15.47 cm2 RA Vol/ BSA A4C s A-L 19.6 mL/m2 LA Area A2C s MOD 19.79 cm2 Ao Asc Diam d 3.45 cm M: 2.6 - 3.4 LV EF A4C MOD 60.5 % LV EF Teichholz 58.9 % LV EF A2C MOD 60.2 % LVEF (Andino's) 60.38 % M: 52 - 72 LV EF Biplane MOD 60.4 % LV Volume 75.72 mL M: 62 - 150 SV 61.69 mL LV Volume Index 36.57 mL/m2 M: 34 - 74 SV Index 29.75 mL/m2 LV Vol Biplane MOD 102.2 mL FS 31.25 % M-Mode TAPSE 2.31 cm (M/F) >1.7 LV Diastology MV E' medial 0.090 (>0.07 m/s) E/A Ratio 0.7 LV E/e MED 7.45 (<14) MV E Vmax 0.67 (0.4-1.3 m/s) MV E' lateral 0.111 (>0.1 m/s) MV A Vmax 0.90 (0.4-1.3 m/s) LV E/e LAT 6.05 (<14) MV E/A Ratio 0.72 MV E/E' medial 7.49 MV E/E' lateral 6.06 Aortic Valve LVOT Area 3.56 cm2 AoV Area Vmax 2.44 cm2 LVOT Vmax 1.08 m/s AoV Area/ BSA (Vmax) 1.18 cm2/m2 LVOT Mean Edgar. 0.66 m/s BERENICE Mean Edgar. 2.25 cm2 LVOT Peak Grad 4.7 mmHg BERENICE Mean Edgar. Index 1.09 cm2/m2 LVOT Mean Grad 2.1 mmHg LVOT VTI 0.207 m LVOT Diam s 2.10 cm AoV Vmax 1.58 m/s Velocity Ratio 0.68 AoV Mean Edgar. 1.05 m/s AoV Peak Grad 10.0 mmHg LVOT SV 73.65 mL AoV Mean Grad 5.0 mmHg AoV VTI 0.275 m AoV Area VTI 2.68 cm2 AoV Area/ BSA (VTI) 1.29 cm/m2 Mitral Valve MV DT 232 (160-240 msec) MV PHT 67 msec MV Area PHT 3.27 cm2 MV VTI 0.348 m MV Area VTI 2.11 (4.0-6.0 cm2) Pulmonary Valve PV Vmax 0.86 (0.5-1.5 m/s) RVOT Peak Gr. 1.79 mmHg PV Peak Grad 3.0 mmHg RVOT Mean Gr. 1.00 mmHg PV Mean Grad 1.8 mmHg RVOT VTI 0.146 m PV VTI 0.156 m RVOT Vmax 0.67 m/s
--- NOTE | 2022-01-02 | DI.MRI_ITS ---
Exam(s) MR BRAIN WO EXAM: MR BRAIN WO CLINICAL HISTORY: lacunar stroke, RUE weakness TECHNIQUE: Multiplanar multisequence MRI of the brain was performed. COMPARISON: No exams were available for comparison FINDINGS: CEREBRAL PARENCHYMA: There is no evidence of intracranial hemorrhage, mass effect, or shift of midline structures. There are no extra-axial fluid collections. Ventricles are not enlarged or shifted. No significant signal abnormality evident in the cerebellar hemispheres. There is prominent signal a bnormality in both sides of the mohsen. There is signal abnormality in the bilateral periventricular w danielle matter consistent with chronic small disease changes. Also multiple foci of restricted diffusio n seen in the left hemisphere both within left basal ganglia, and left caudate nucleus and left periv entricular white matter. However, there also foci of restricted diffusion in the left occipital lobe which is posterior circulation territory. PITUITARY GLAND: No mass nor parasellar abnormality. No obvious abnormality in the cavernous sinuses. FLOW VOIDS: The expected flow void are noted. No evidence of obvious aneurysm nor obvious vascular ma lformation. PARANASAL SINUSES: There is a 0 opacification with fluid in the left maxillary sinus. Right maxillar y sinus is clear as are the remainder of the paranasal sinuses and mastoid air cells. ORBITS: No obvious findings. IMPRESSION: In addition to abundant bilateral periventricular chronic white matter ischemic changes there are mul tiple foci of restricted diffusion in territory both the left middle cerebral artery and left posteri or cerebral artery (left occipital lobe). Therefore although there is approximately 30 percent steno sis at the level of the left carotid bifurcation, 1 must also think of the possibility of cardiogenic source of emboli, given the 2nd distribution here of involvement which is in the left occipital lobe -posterior circulation. DATA REPOSITORY:
[2022-01-02] MEDS: Aspirin 81 MG CHEW PO (08:03)
[2022-01-02] MEDS: Pantoprazole 40 MG TABCR PO ×2 (08:03→20:15)
[2022-01-02] MEDS: Sucralfate 1 GM TAB PO ×4 (08:03→21:35)
[2022-01-02] MEDS: Sertraline 50 MG TAB PO (08:03)
[2022-01-02] MEDS: Metoprolol 50 MG TAB PO (08:03)
[2022-01-02] MEDS: Apixaban 5 MG TAB 2.5 MG PO (08:03)
[2022-01-02] MEDS: Losartan 50 MG TAB PO (08:03)
--- NOTE | 2022-01-02 09:57 | PDOC.CMIN ---
- If Service Date Differs Date of service: 01/02/22 Time of Service: 09:57 Care Management Initial Assess REASON FOR HOSPITALIZATION:: stroke PAST MEDICAL HISTORY/PAST SURGICAL HISTORY:: All Active Problems. COVID-19 (Acute). Acute CVA (cerebrovascular accident) (Acute). Erosive esophagitis (Acute). Glaucoma associated with ocular disorder (Acute). Psoriasis (Chronic). Normal colonoscopy (Acute). Triage assessment class 1, emergent (Acute). Epigastric abdominal pain (Acute). Black stools (Acute). Anemia due to blood loss, acute (Acute). Hiatal hernia with GERD (Acute). History of DVT (deep vein thrombosis) (Acute). Hearing loss (Acute). pt denies. Depression (Chronic). GERD (gastroesophageal reflux disease) (Chronic). Ocular migraine (Acute). Medical History. Acute deep vein thrombosis (DVT) of right lower extremity. most recent DVT in right foot 02/05/20. Amaurosis fugax, right eye. 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 LOVE (dyspnea on exertion). Family history of multiple endocrine neoplasia [MEN] syndrome. 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 Headache. History of melanoma. Hypertension. Iritis. Ketonuria. Knee pain, right. Localized swelling of right lower leg. Loss of vision. Pt. reports for last month he has had occasional loss of vision in R eye. Pt. states PCP and opthamologist are working on it, no diagnosis at this time. Haroon Jessica CRNA, aware. 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 Obesity. Pain in right lower leg. Pleural effusion, right. Right upper quadrant abdominal pain. Right-sided chest pain. Tinnitus, right. Tremor. Unexplained weight loss. Surgical History. Colonoscopy - IV Sedation. 2007- normal. EGD - MAC (07/16/16). Hx of detached retina repair. Hx of melanoma excision. Thoracentesis (10/24/17) PREVIOUS FUNCTIONAL STATUS/SOCIAL/FAMILY SUPPORTS:: Timmy lives in [facility] with his , Sydni. His daughter, Vandana, lives in [place]. He is independent at baseline in the community. CURRENT FUNCTIONAL STATUS:: Timmy was sitting up in his chair finishing his lunch when CM met with him. His , Rebecca, was by his side. He stated that he is feeling much better today, and has talked to the MD who reported that he will likely be observed overnight. He will work with PT today, and have a neuro consult. He is comfortable with the plan to remain overnight. He reports that he is independent at home and does not anticipate the need for services. CM will continue to follow. ADVANCE DIRECTIVES:: Not on file at [facility]. Has patient been provided with info about the portal/API?: Yes Did the patient sign up for the portal?: Yes (active) CODE STATUS:: Full Code INSURANCE COVERAGE / FINANCIAL ISSUES:: [facility]/ BCBS CURRENT HOME/COMMUNITY SERVICES/EQUIPMENT:: No current services or equipment. PRIMARY CARE PHYSICIAN:: Yuan Tian POTENTIAL DISCHARGE NEEDS:: Evaluations for further needs, follow up appointments. PATIENT/FAMILY EDUCATION NEEDS:: Review discharge instructions and limitations, discussion of self care needs including ask me three. ANTICIPATED BARRIERS TO DISCHARGE:: None identified. TRANSPORTATION:: Via private vehicle by his . PLAN:: Anticipate Timmy will return home when medically cleared. His will drive him home via private vehicle. He will follow up with his PCP and discharge plan of care. CM will continue to follow.
--- NOTE | 2022-01-02 10:52 | W.PM.PROGNOT ---
Date of Service Date of service: 01/02/22 Time of Service: 10:53 Assessment and Plan Assessment and plan (1) Acute CVA (cerebrovascular accident): Status: Acute Assessment and plan: He was tested toPatient has a history of recurrent DVT and pulmonary emboli and has been chronically on apixaban 2.5 mg p.o. twice daily. Aspirin 81 mg daily was added last night. It is my opinion that he did not have a failure of the apixaban but was on a subtherapeutic dose. Distribution of his CVA on his MRI suggest embolic CVA. We will check results of his echocardiogram. Will await his evaluation by Dr. Jose and then discuss optimal combination of anticoagulant and antiplatelet therapy. Patient does have a history of GERD and peptic ulcer disease with previous GI bleeding and is maintained on Carafate. If he remains on antiplatelet therapy in addition to a D.O.A.C. he should go on long-term PPI prophylaxis. Patient should have 30 day event recorder to document whether or not he has PAF. Echo has been ordered w/ bubble study and results are pending at this time. I have put him on Crestor. He and his do not recall what reaction he had to atorvastatin and he has tried no other statins. P.T. has been consulted. Professional time spent interviewing and examining patient, discussion of goals of care with hospital team (care management, nursing and consulting professionals) was 30 minutes. Subjective Subjective Interval history since last seen: Timmy says that his right hand/arm weakness has improved. However, he is not back to his baseline. He still has some clumsiness, he also says that he can not seem to use his phone or his computer, has trouble figuring how to use them. He denies any weakness in his legs or his left side. No headache. He has chronic right sided visual lateral field deficit secondary to prior retinal injury/surgery. Exam Narrative Exam Narrative: Right-handed male sitting up in his chair alert and oriented person place time circumstance. HEENT no facial asymmetry no dysarthric speech full extraocular motion intact decreased right lateral visual field to confrontation, normal movement of his tongue and palate. Neck is supple nontender no JVD normal carotid pulses Lungs are clear to auscultation Heart is regular rate and rhythm no appreciable murmur rub Neuro exam no facial symmetry as listed above. Right hand is somewhat clumsy with fine motor movement but otherwise grossly normal strength with handgrip as well as normal strength with extension and flexion of the arm and abduction and abduction of the shoulder. Normal motor exam on the left side. Normal motor exam in both lower extremities. Sensory grossly normal to light touch/noxious stimuli; I could not elicit a Babinski reflex; he has slight drift in his right hand/arm. Objective Last Vital Signs Temp 37.4 C 01/02/22 08:29 Pulse 72 01/02/22 08:29 Resp 22 01/02/22 08:29 BP 160/84 H 01/02/22 08:29 Pulse Ox 97 01/02/22 08:29 Laboratory Results - last 24 hr 01/01/22 01/01/22 01/01/22 17:02 17:02 17:02 WBC 7.65 RBC 4.11 L Hgb 12.4 L Hct 37.6 L MCV 92 MCH 30.2 MCHC 33.0 RDW 13.5 Plt Count 196 MPV 9.1 Immature Gran % 0.3 Neutrophils % 61.3 Lymphocytes % 22.0 Monocytes % 13.3 Eosinophils % 2.6 Basophils % 0.5 Nucleated RBC % 0.0 Absolute Neutrophils 4.69 Absolute Lymphocytes 1.68 Absolute Monocytes 1.02 H Absolute Eosinophils 0.20 Absolute Basophils 0.04 PT 9.9 INR 1.0 APTT 26.5 Sodium 138 Potassium 3.7 Chloride 101 Carbon Dioxide 27.2 Anion Gap 9.8 BUN 14 Creatinine 1.0 Est GFR (CKD-EPI 2020) 80.47 Glucose 91 Calcium 9.0 Magnesium 1.5 L Total Bilirubin 0.6 AST 20 ALT 23 Alkaline Phosphatase 50 Troponin I < 50 Total Protein 7.9 Albumin 4.0 Urine Color Urine Clarity Urine pH Ur Specific [place] Urine Protein Urine Ketones Urine Blood Urine Nitrite Urine Bilirubin Urine Urobilinogen Ur Leukocyte Esterase Urine RBC Urine WBC Ur Epithelial Cells Urine Crystals Urine Bacteria Urine Casts Urine Mucus Ur Culture Indicated? Urine Glucose Urine Opiates Screen Urine Methadone Screen Ur Barbiturates Screen Ur Tricyclics Screen Ur Amphetamines Screen U Benzodiazepines Scrn Urine Cocaine Screen Ur THC Screen Ethyl Alcohol < 3.0 COVID-19 Source SARS-CoV-2 (PCR) Influenza Type A (PCR) Influenza Type B (PCR) RSV (PCR) 01/01/22 01/01/22 01/01/22 18:00 18:00 19:57 WBC RBC Hgb Hct MCV MCH MCHC RDW Plt Count MPV Immature Gran % Neutrophils % Lymphocytes % Monocytes % Eosinophils % Basophils % Nucleated RBC % Absolute Neutrophils Absolute Lymphocytes Absolute Monocytes Absolute Eosinophils Absolute Basophils PT INR APTT Sodium Potassium Chloride Carbon Dioxide Anion Gap BUN Creatinine Est GFR (CKD-EPI 2020) Glucose Calcium Magnesium Total Bilirubin AST ALT Alkaline Phosphatase Troponin I < 50 Total Protein Albumin Urine Color Yellow Urine Clarity Clear Urine pH 6.0 Ur Specific [place] 1.010 Urine Protein Negative Urine Ketones Trace H Urine Blood Trace-lysed H Urine Nitrite Negative Urine Bilirubin Negative Urine Urobilinogen 0.2 Ur Leukocyte Esterase Negative Urine RBC 3-5 H Urine WBC 0-2 Ur Epithelial Cells Rare Urine Crystals Negative Urine Bacteria Rare Urine Casts Negative Urine Mucus Negative Ur Culture Indicated? No Urine Glucose Negative Urine Opiates Screen Negative Urine Methadone Screen Negative Ur Barbiturates Screen Negative Ur Tricyclics Screen Negative Ur Amphetamines Screen Negative U Benzodiazepines Scrn Negative Urine Cocaine Screen Negative Ur THC Screen Negative Ethyl Alcohol COVID-19 Source SARS-CoV-2 (PCR) Influenza Type A (PCR) Influenza Type B (PCR) RSV (PCR) 01/01/22 21:32 WBC RBC Hgb Hct MCV MCH MCHC RDW Plt Count MPV Immature Gran % Neutrophils % Lymphocytes % Monocytes % Eosinophils % Basophils % Nucleated RBC % Absolute Neutrophils Absolute Lymphocytes Absolute Monocytes Absolute Eosinophils Absolute Basophils PT INR APTT Sodium Potassium Chloride Carbon Dioxide Anion Gap BUN Creatinine Est GFR (CKD-EPI 2020) Glucose Calcium Magnesium Total Bilirubin AST ALT Alkaline Phosphatase Troponin I Total Protein Albumin Urine Color Urine Clarity Urine pH Ur Specific [place] Urine Protein Urine Ketones Urine Blood Urine Nitrite Urine Bilirubin Urine Urobilinogen Ur Leukocyte Esterase Urine RBC Urine WBC Ur Epithelial Cells Urine Crystals Urine Bacteria Urine Casts Urine Mucus Ur Culture Indicated? Urine Glucose Urine Opiates Screen Urine Methadone Screen Ur Barbiturates Screen Ur Tricyclics Screen Ur Amphetamines Screen U Benzodiazepines Scrn Urine Cocaine Screen Ur THC Screen Ethyl Alcohol COVID-19 Source Nasopharynx SARS-CoV-2 (PCR) Negative Influenza Type A (PCR) Negative Influenza Type B (PCR) Negative RSV (PCR) Negative
--- NOTE | 2022-01-02 15:42 | W.NEUROCONSU ---
Date of service: 01/02/22 Time of Service: 15:43 Assessment and Plan Assessment and plan (1) Acute CVA (cerebrovascular accident): Status: Acute (2) Anomia: Status: Acute (3) Right hand weakness: Status: Acute (4) Left carotid stenosis: Status: Acute Assessment and plan: Mr. Burt is admitted with acute ischemic stroke manifested by right hand/arm clumsiness, weakness, and numbness with anomia, migraine, and other cognitive dysfunction (visuospatial?). The MRI brain shows various small ischemic infarcts of varying age throughout the L MCA distribution except for one tiny punctate area of ischemic in the L occipital lobe and therefore in the posterior circulation. Without that L occipital punctate infarct, I would suggest stroke etiology due to complex L common and internal carotid plaque and stenosis. However, if we consider that punctate infarct significant and pertinent then etiology must be from the heart - either aortic plaque or unknown afib. Thus, extensive testing recommended given complexity. Work-up: -Carotid ultrasound to correlate CTA findings -LUCIUS (urgent) -Telemetry with extended 30 day cardiac monitoring at discharge -A1c -Lipid panel Medications: -aspirin 81mg daily for secondary stroke prevention -apixaban 5mg BID -rosuvastatin 40mg daily for secondary stroke prevention Other: -Allow permissive hypertension -Occupation therapy for upper extremity weakness, activities of daily living -Speech therapy for speech and cognition -Stat [facility] for L carotid stenosis in setting of acute stroke He should follow-up in neurology clinic in 4-6 weeks. History of Present Illness History of Present Illness Chief Complaint: stroke Narrative: Handedness: right. HPI: Timmy Burt is a 71 year-old with hyerptension, recurrent DVT on apixaban 2.5mg BID, psoriasis and psoriatic arthritis, depression, and GERD. Yesterday, Timmy awoke with R hand numbness, clumsiness and weakness. As the morning went on, his symptoms seemed to worsen. Further, he was noting cognitive dysfunction - inability to figure out how to use his phone, ipad, or even the TV remote controller. Due to persistent symptoms he, presented to the ER yesterday evening, outside of the tPA time window. Of interest, in the last 3 days he has been experiencing ocular migraines - something that he had not experienced in many, many years. Yesterday, he had a migraine headache - also very unusual. He was started on aspirin 81mg daily along with rosuvastatin (he does not recall prior ADRs with atorvastatin) in addition to his apixaban. He has undergone the work-up as below. Clinically, the numbness has resolved and the right hand weakness/clumsiness has nearly resolved. His cognitive dysfunction has improved - he can use his phone albeit slowly. He has not noticed any word finding issues, wrong word usage, or word salad. Work-up: -CTH (01/01/22): no acute findings. I reviewed these images personally and this is my personal interpretation. -CTA head/neck (01/01/22): plaques bilaterally at the carotid bulb with more complex plaque at left common carotid and L ICA causing ~50+% stenosis per my read. I reviewed these images personally and this is my personal interpretation. -MRI brain w/o (01/02/22): Multiple areas of diffusion restriction throughout the left frontal, parietal lobes and basal ganglia of varying age. There is a single area of punctate ischemia in the left occipital lobes. Moderate chronic vascular changes. I reviewed these images personally and this is my personal interpretation. -TTE (01/02/22): EF 60%, no wall motion abnormalities. LA normal. No PFO. PFSH All Active Problems (Updated 01/02/22 @ 18:17 by Madelaine Jose MD) Right hand weakness (Acute) Anomia (Acute) Left carotid stenosis (Acute) Acute CVA (cerebrovascular accident) (Acute) Glaucoma associated with ocular disorder (Acute) Psoriasis (Chronic) Epigastric abdominal pain (Acute) Hiatal hernia with GERD (Acute) Hearing loss (Acute) pt denies Depression (Chronic) GERD (gastroesophageal reflux disease) (Chronic) Ocular migraine (Acute) Medical History (Updated 01/02/22 @ 18:17 by Madelaine Jose MD) Acute deep vein thrombosis (DVT) of right lower extremity most recent DVT in right foot 02/05/20 Amaurosis fugax, right eye 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 reports for last month he has had occasional loss of vision in R eye. Pt. states PCP and opthamologist are working on it, no diagnosis at this time. 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 Normal colonoscopy Obesity Pain in right lower leg Pleural effusion, right Right upper quadrant abdominal pain Right-sided chest pain Tinnitus, right Tremor Unexplained weight loss Surgical History Colonoscopy - IV Sedation 2007- normal EGD - MAC (07/16/16) Hx of detached retina repair Hx of melanoma excision Thoracentesis (10/24/17) Family History Other Multiple endocrine neoplasia Social History Smoking/Tobacco Use Status: Never Smoking risk assessment performed?: Yes Alcohol Intake: current Alcohol Intake frequency: 0-2 drinks per day Alcohol type: hard liquor Drug use: Never Substance use type: does not use Current gender identity: male Do you feel safe at home: Yes Do you feel safe in your relationship?: Yes Visit Medication and Allergies Active Medications Generic Name Dose Route Start Last Admin Trade Name Freq PRN Reason Stop Dose Admin Acetaminophen 650 mg 01/01/22 19:34 Acetaminophen 325 Mg Tab PO Q4H PRN PRN Apixaban 2.5 mg 01/01/22 20:00 01/02/22 08:33 Apixaban 5 Mg Tab PO Not Given BID PURVI Aspirin 81 mg 01/02/22 08:30 01/02/22 08:03 Aspirin 81 Mg Chew PO 81 mg DAILY PURVI Administration Brimonidine/Timolol 0 ml 01/02/22 08:30 01/02/22 10:06 Brimonidine 0.2%/Timolol 0.5% 5 Ml Btl OP 1 drp BID PURVI Administration Dimethicone/Zinc Oxide 0 gm 01/01/22 19:34 Dexter Protect Cream 142 Gm Tube TP PRN PRN Sodium Chloride 500 mls @ 0 mls/hr 01/01/22 17:00 Saline 500ml Bag IV PRN PRN As Directed IV Miscellaneous Supplies 1 each 01/01/22 17:00 Iv Access IV DIRECTED PURVI Iohexol 500 ml 01/01/22 17:45 01/01/22 17:38 Omnipaque 350 Mg/Ml 500 Ml Btl-Imaging Package IJ 01/31/22 23:59 500 ml DIRECTED PURVI Administration Latanoprost 0 ml 01/01/22 22:00 01/01/22 21:23 Latanoprost 0.005% 2.5 Ml Btl OP Not Given HS PURVI Losartan Potassium 50 mg 01/02/22 08:30 01/02/22 08:03 Losartan 50 Mg Tab PO 50 mg DAILY PURVI Administration Melatonin 6 mg 01/01/22 19:34 Melatonin 3 Mg Tab PO HS PRN Insomnia Metoprolol Tartrate 50 mg 01/02/22 08:30 01/02/22 08:03 Metoprolol 50 Mg Tab PO 50 mg DAILY PURVI Administration Pantoprazole Sodium 40 mg 01/01/22 20:00 01/02/22 08:35 Pantoprazole 40 Mg Tabcr PO Not Given BID PURVI Rosuvastatin Calcium 40 mg 01/02/22 20:00 Rosuvastatin 10 Mg Tab PO QPM PURVI Sertraline HCl 50 mg 01/02/22 08:30 01/02/22 08:03 Sertraline 50 Mg Tab PO 50 mg DAILY PURVI Administration Sodium Chloride 0 ml 01/01/22 17:00 Normal Saline Flush 10 Ml Syr IVP PRN PRN Sodium Chloride 50 ml 01/01/22 17:45 Normal Saline - Diluent 50 Ml Vial IV .FOR DI USE PURVI Sucralfate 1 gm 01/01/22 22:00 01/02/22 11:21 Sucralfate 1 Gm Tab PO 1 gm AC & HS PURVI Administration Verapamil HCl 240 mg 01/02/22 08:30 01/02/22 08:25 Verapamil C.R. 240 Mg Tabcr PO 240 mg DAILY PURVI Administration Allergies atorvastatin Allergy (Mild, Verified 01/01/22 16:55) unknown naproxen Allergy (Mild, Verified 01/01/22 16:55) bleeding methotrexate Adverse Reaction (Intermediate, Unverified 01/01/22 16:55) vomitting lisinopril Adverse Reaction (Mild, Unverified 01/01/22 16:55) coughing amlodipine Adverse Reaction (Unverified 01/01/22 16:55) increased BP and HR per pt/spouse 10/24/17 Penicillins Adverse Reaction (Unverified 01/01/22 16:55) Nausea Exam Narrative Exam Narrative: Physical Exam: Gen: Patient of apparent stated age, NAD Head and face: no facial or cranial abnormalities Neck: Supple, no meningismus, no occipital tenderness CV: + S1, S2, RRR, no murmur Resp: CTA B/L Abd: soft, nontender, nondistended Ext: No edema. No clubbing or cyanosis. No bony deformity. Neuro Exam: Language: fluency, repetition, and comprehension intact; a few naming errors Mental Status: AAOx3, current events intact, fund of knowledge intact; Speech: mild dysarthria with moderate hypophonia Cranial nerves: Funduscopy: not performed CN II: visual gutierrez intact CN III, IV, : extraocular movements intact, no nystagmus, pupils symmetric and reactive to light CN V: face sensation intact to LT and PP CN VII: no facial asymmetry noted CN VIII: hearing intact bilaterally CN IX, X: palate rises symmetrically CN XI: trapezius/SCM 5/5 bilaterally CN XII: protrudes tongue symmetrically Sensory: intact to LT, PP, vibration, and joint position in all extremities Motor: bulk and tone intact. Fine motor movements reduced on the right. Right pronator drift. Strength 5/5 throughout including the deltoids, biceps, triceps, wrist extensors, hip flexors, knee flexors, knee extensors, ankle flexors, and ankle extensors. Reflexes: hyporeflexic throughout; toes down going bilaterally; Coordination: FTN and HTS intact bilaterally Gait: normal gait Results Last Vital Signs Temp 98.2 F 01/02/22 15:32 Pulse 69 01/02/22 15:32 Resp 19 01/02/22 15:32 BP 137/77 01/02/22 15:32 Pulse Ox 97 01/02/22 15:32 Labs Result diagrams: 01/01/22 17:02 01/01/22 17:02 Labs: Laboratory Results - last 24 hr 01/01/22 01/01/22 01/01/22 17:02 17:02 17:02 WBC 7.65 RBC 4.11 L Hgb 12.4 L Hct 37.6 L MCV 92 MCH 30.2 MCHC 33.0 RDW 13.5 Plt Count 196 MPV 9.1 Immature Gran % 0.3 Neutrophils % 61.3 Lymphocytes % 22.0 Monocytes % 13.3 Eosinophils % 2.6 Basophils % 0.5 Nucleated RBC % 0.0 Absolute Neutrophils 4.69 Absolute Lymphocytes 1.68 Absolute Monocytes 1.02 H Absolute Eosinophils 0.20 Absolute Basophils 0.04 PT 9.9 INR 1.0 APTT 26.5 Sodium 138 Potassium 3.7 Chloride 101 Carbon Dioxide 27.2 Anion Gap 9.8 BUN 14 Creatinine 1.0 Est GFR (CKD-EPI 2020) 80.47 Glucose 91 Calcium 9.0 Magnesium 1.5 L Total Bilirubin 0.6 AST 20 ALT 23 Alkaline Phosphatase 50 Troponin I < 50 Total Protein 7.9 Albumin 4.0 Urine Color Urine Clarity Urine pH Ur Specific [place] Urine Protein Urine Ketones Urine Blood Urine Nitrite Urine Bilirubin Urine Urobilinogen Ur Leukocyte Esterase Urine RBC Urine WBC Ur Epithelial Cells Urine Crystals Urine Bacteria Urine Casts Urine Mucus Ur Culture Indicated? Urine Glucose Urine Opiates Screen Urine Methadone Screen Ur Barbiturates Screen Ur Tricyclics Screen Ur Amphetamines Screen U Benzodiazepines Scrn Urine Cocaine Screen Ur THC Screen Ethyl Alcohol < 3.0 COVID-19 Source SARS-CoV-2 (PCR) Influenza Type A (PCR) Influenza Type B (PCR) RSV (PCR) 01/01/22 01/01/22 01/01/22 18:00 18:00 19:57 WBC RBC Hgb Hct MCV MCH MCHC RDW Plt Count MPV Immature Gran % Neutrophils % Lymphocytes % Monocytes % Eosinophils % Basophils % Nucleated RBC % Absolute Neutrophils Absolute Lymphocytes Absolute Monocytes Absolute Eosinophils Absolute Basophils PT INR APTT Sodium Potassium Chloride Carbon Dioxide Anion Gap BUN Creatinine Est GFR (CKD-EPI 2020) Glucose Calcium Magnesium Total Bilirubin AST ALT Alkaline Phosphatase Troponin I < 50 Total Protein Albumin Urine Color Yellow Urine Clarity Clear Urine pH 6.0 Ur Specific [place] 1.010 Urine Protein Negative Urine Ketones Trace H Urine Blood Trace-lysed H Urine Nitrite Negative Urine Bilirubin Negative Urine Urobilinogen 0.2 Ur Leukocyte Esterase Negative Urine RBC 3-5 H Urine WBC 0-2 Ur Epithelial Cells Rare Urine Crystals Negative Urine Bacteria Rare Urine Casts Negative Urine Mucus Negative Ur Culture Indicated? No Urine Glucose Negative Urine Opiates Screen Negative Urine Methadone Screen Negative Ur Barbiturates Screen Negative Ur Tricyclics Screen Negative Ur Amphetamines Screen Negative U Benzodiazepines Scrn Negative Urine Cocaine Screen Negative Ur THC Screen Negative Ethyl Alcohol COVID-19 Source SARS-CoV-2 (PCR) Influenza Type A (PCR) Influenza Type B (PCR) RSV (PCR) 01/01/22 21:32 WBC RBC Hgb Hct MCV MCH MCHC RDW Plt Count MPV Immature Gran % Neutrophils % Lymphocytes % Monocytes % Eosinophils % Basophils % Nucleated RBC % Absolute Neutrophils Absolute Lymphocytes Absolute Monocytes Absolute Eosinophils Absolute Basophils PT INR APTT Sodium Potassium Chloride Carbon Dioxide Anion Gap BUN Creatinine Est GFR (CKD-EPI 2020) Glucose Calcium Magnesium Total Bilirubin AST ALT Alkaline Phosphatase Troponin I Total Protein Albumin Urine Color Urine Clarity Urine pH Ur Specific [place] Urine Protein Urine Ketones Urine Blood Urine Nitrite Urine Bilirubin Urine Urobilinogen Ur Leukocyte Esterase Urine RBC Urine WBC Ur Epithelial Cells Urine Crystals Urine Bacteria Urine Casts Urine Mucus Ur Culture Indicated? Urine Glucose Urine Opiates Screen Urine Methadone Screen Ur Barbiturates Screen Ur Tricyclics Screen Ur Amphetamines Screen U Benzodiazepines Scrn Urine Cocaine Screen Ur THC Screen Ethyl Alcohol COVID-19 Source Nasopharynx SARS-CoV-2 (PCR) Negative Influenza Type A (PCR) Negative Influenza Type B (PCR) Negative RSV (PCR) Negative
--- NOTE | 2022-01-02 15:52 | CHAPLAIN ---
Timmy was resting in bed when I visited. His , Rebecca, was with him. 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 Rebecca explained that they were waiting to meet with Dr. Jose. (She is a neighbor of theirs.) Timmy told me he retired from [employer], and lives not far from the hospital.
[2022-01-02] MEDS: Rosuvastatin 10 MG TAB 40 MG PO (20:15)
[2022-01-02] MEDS: Apixaban 5 MG TAB PO (20:15)
[2022-01-02] MEDS: Latanoprost 0.005% 2.5 ML BTL OP (21:35)
[2022-01-03] VITALS (11 sets, daily range): BP systolic 110–152; BP diastolic 65–82; PULSE 66–82; RESP 4–20; TEMP 36.2–38.1; O2SAT 95–97
--- NOTE | 2022-01-03 | DI.RAD_ITS ---
Exam(s) XR CHEST 2V PA LATERAL EXAM: XR CHEST 2V PA LATERAL CLINICAL HISTORY: cough, sputum production TECHNIQUE: COMPARISON: CR,XR XR PORTABLE CHEST AP from 01/01/2022 FINDINGS: The heart is not enlarged. Lungs are clear and well expanded. There is a large retrocardiac hiatus hernia. No pleural effusion seen. IMPRESSION: No evidence of acute process. RADIATION DOSE DELIVERED: Total DLP
[2022-01-03 06:42] LABS: Hemoglobin A1C 5.7 % (<5.7)
[2022-01-03 06:55] LABS: Calculated LDL 104 mg/dL (<100); Cholesterol 191 mg/dL (<200); HDL Cholesterol 74 mg/dL (40-60); Triglyceride 66 mg/dL (<150)
[2022-01-03] MEDS: Losartan 50 MG TAB PO (07:39)
[2022-01-03] MEDS: Sertraline 50 MG TAB PO (07:39)
[2022-01-03] MEDS: Sucralfate 1 GM TAB PO ×4 (07:39→19:46)
[2022-01-03] MEDS: Aspirin 81 MG CHEW PO (07:39)
[2022-01-03] MEDS: Pantoprazole 40 MG TABCR PO ×2 (07:39→19:46)
[2022-01-03] MEDS: Metoprolol 50 MG TAB PO (07:40)
[2022-01-03] MEDS: Apixaban 5 MG TAB PO ×2 (07:40→19:46)
--- NOTE | 2022-01-03 08:00 | DI.US_ITS ---
Exam(s) US CAROTID EXAM: US CAROTID CLINICAL HISTORY: CVA, carotid stenosis TECHNIQUE: Ultrasound performed using standard protocol. COMPARISON: No exams were available for comparison FINDINGS: Duplex evaluation of the carotid circulation was performed according to the usual protocol. There is minimal visible atheromatous plaque in the carotid bulbs bilaterally. Flow velocities are within no rmal limits bilaterally in the common, internal, and external carotid arteries. There is bilateral antegrade vertebral flow. IMPRESSION: No evidence of a hemodynamically significant carotid stenosis. DATA REPOSITORY:
--- NOTE | 2022-01-03 10:08 | PT.INIE ---
PT Notes Visit Reasons: Stroke Physical Therapy Inpatient Initial Evaluation Date: 01/03/2022 Referring Doctor: Juaquin Cline MD PT Orders: PT CONSULT: Safety consult for D/C Precautions: Fall. Standard. Activity as tolerated. Patient Profile/Admitting Diagnosis: Timmy is a 71-year-old [id number] male who presented to the ED on 01/01/2022 due to weakness in the right upper extremity, clumsiness of the hand, and inability to manipulate phone nor write. Patient is diagnosed with acute cerebrovascular accident, anomia, and right hand weakness. PMHX: All Active Problems?(Updated 01/02/22 @ 18:17 by Madelaine Jose MD) Right hand weakness (Acute) Anomia (Acute) Left carotid stenosis (Acute) Acute CVA (cerebrovascular accident) (Acute) Glaucoma associated with ocular disorder (Acute) Psoriasis (Chronic) Epigastric abdominal pain (Acute) Hiatal hernia with GERD (Acute) Hearing loss (Acute) pt denies Depression (Chronic) GERD (gastroesophageal reflux disease) (Chronic) Ocular migraine (Acute) Medical History?(Updated 01/02/22 @ 18:17 by Madelaine Jose MD) Acute deep vein thrombosis (DVT) of right lower extremity most recent DVT in right foot 02/05/20 9 HE IS ALSO AT amaurosis fugax, right eye 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 reports for last month he has had occasional loss of vision in R eye. Pt. states PCP and opthamologist are working on it, no diagnosis at this time. 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 Colonoscopy - IV Sedation 2007- normal EGD - MAC (07/16/16) Hx of detached retina repair Hx of melanoma excision Thoracentesis (10/24/17) Social History/Home Situation: Lives with in a private home with 3-4 steps to enter, another flight of steps lead to their bedroom. Independent with all aspects of ADLs prior to admission. One fall in the past year. 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 Equipment Owned/DME: None Subjective: Patient has been having difficulty using his IPhone since the stroke. Reports that the 7/10 headache he had when he came in decreased to 3/10 this morning. He also is slowly regaining some function in his right wrist and hand since yesterday. Denies chest pain and lightheadedness throughput session. Objective: General Observation: Seated on bedside chair. is present in room throughout session. Mental Status: Alert and oriented as to person, place, time, and purpose. Able to pay attention, focus, and respond appropriately. Pain: 3/10 headache Vital Signs: WNL as closely monitored by nursing staff ROM: Right Upper Extremity: Shoulder Flexion WFL. Shoulder abduction WFL. Elbow flexion WFL. Wrist flexion 10 degrees to 80 degrees. Wrist extension -10 degrees. Functional opening and closing of hand WFL. Left Upper Extremity: Shoulder Flexion WFL. Shoulder abduction WFL. Elbow flexion WFL. Wrist flexion WFL. Functional opening and closing of hand WFL. Right Lower Extremity: Hip flexion WFL. Hip abduction WFL. Knee flexion WFL. Ankle dorsiflexion WFL. Ankle plantarflexion WFL. Left Lower Extremity: Hip flexion WFL. Hip abduction WFL. Knee flexion WFL. Ankle dorsiflexion WFL. Ankle plantarflexion WFL. Strength: Right Upper Extremity: Shoulder flexors 5/5. Shoulder abductors 5/5. Elbow flexors 5/5. Elbow extensors 5/5. Wrsit flexors 4/5. Wrist extensors 3-/5. Beef C[employer] Grazier comparatively weaker than L. Left Upper Extremity: Shoulder flexors 5/5. Shoulder abductors 5/5. Elbow flexors 5/5. Elbow extensors 5/5. Be[employer] C[employer] Grazier strong. Right Lower Extremity: Hip flexors 5/5. Hip abductors 5/5. Knee flexors 5/5. Knee extensors 5/5. Ankle dorsiflexors 5/5. Ankle plantarflexors 5/5. Left Lower Extremity: Hip flexors 5/5. Hip abductors 5/5. Knee flexors 5/5. Knee extensors 5/5. Ankle dorsiflexors 5/5. Ankle plantarflexors 5/5. Bed Mobility/Transfers: Sit to stand independent Stand to sit independent Bed to reclining chair independent Reclining chair to bed independent Gait: Instructed patient with level surface ambulation of 750 feet independently. No AD needed. Minimal decrease in arm swing to R UE. Balance: Static Sitting: Normal Dynamic Sitting: Normal Static Standing: Normal Dynamic Standing: Good SPECIAL TESTS: Mobility Limitations Standardized Measure [facility]-P[facility] 6 clicks Basic Mobility Inpatient Short Form: Raw Score: 24 CMS Score: 0% deficit 30-second chair rise: 12x 4-stage Balance test: Able to maintain 10 seconds with feet together, semi-tandem, and full tandem but is unable with one-legged stance. Rapid alternating movement: Minimal slowing in R UE Informed Consent/Education: Patient was instructed in purpose of PT consult. Patient was advised to continue with home exercises consisting of sit<>stand at edge of bed and stair climbing. Agreeable to doing outpatient OT services for wrist strengthening and hand dexterity skilling. Assessment: Patient is able to negotiate level surfaces and stairs with no problem without need for assistive device. Will benefit from outpatient OT services to address wrist strength and hand dexterity issues. Patient presents with clinical signs and symptoms consistent with current/admitting diagnoses that have resulted to mobility limitations, gait instability, generalized weakness, and overall ADL decline as demonstrated by the following impairment level findings: 1. Decreased strength to R wrist flexors and hand intrinsics 2. Limited ability to perform one-legged stance Impairments are contributing to the following functional limitations: 1. Low risk for falls 2. Decreased R hand dexterity [place] 51288 low complexity based on the following: History: 71-year-old male with past medical history as indicated above Examination: Demonstrable impairment in strength, balance, and mobility level with underlying impairments and functional limitations as exhibited above as well as deficit score of 0% utilizing the [facility] Mobility Inpatient Short Form Presentation: Stable Decision Makin low complexity Goals: N/A. PT evaluation only. Plan of Care/Treatment Plan: N/A. PT evaluation only. DISCHARGE RECOMMENDATIONS: Patient will benefit from outpatient occupational therapy for therapy services in order to facilitate return of R wrist flexors and extensors as well as regain full right hand dexterity. TREATMENT CODE/TIME: 9716 1 x 28 minutes beginning at 10:08 AM. Thank you for the opportunity to participate in the care of this patient. Ivy Salinas PT, DPT, CLT [facility] [place], [place]
--- NOTE | 2022-01-03 11:30 | SP_ITS ---
Date of service: 01/03/22 Time of Service: 11:30 Subjective Patient was contacted in his room this date with his present. Alert, responsive, cooperative, and agreeable to participate in all assessment tasks. He describes initial cognitive-communication symptoms of difficulty using phone/ipad due to difficulty with sequencing/navigation, finding buttons/apps, and slow processing speed. He also endorses mild word-finding difficulties but denies slurred speech or other speech or voice changes. His endorses his report as well. Patient shares that after completing HS, he completed 1 year of college before spending 4 years in the [employer]. 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 He and his have two children and two grandchildren who do not live in [place]. HPI: Cognitive-communication consult received from Dr. Hdz for this 71 y/o M admitted with acute ischemic stroke manifested by right hand/arm clumsiness, weakness, and numbness with anomia, migraine, and other cognitive dysfunction (visuospatial?).? The MRI brain shows various small ischemic infarcts of varying age throughout the L MCA distribution except for one tiny punctate area of ischemic in the L occipital lobe and therefore in the posterior circulation.? Imaging/Workup -Carotid ultrasound to correlate CTA findings - 11/03/21: No evidence of a hemodynamically significant carotid stenosis. -Brain MRI 01/02/2022: In addition to abundant bilateral periventricular chronic white matter ischemic changes there are multiple foci of restricted diffusion in territory both the left middle cerebral artery and left posterior cerebral artery (left occipital lobe).? Therefore although there is approximately 30 percent stenosis at the level of the left carotid bifurcation, 1 must also think of the possibility of cardiogenic source of emboli, given the 2nd distribution here of involvement which is in the left occipital lobe-posterior circulation. Head/Neck CTA 01/01/2022: 1. There is both calcified and noncalcified plaque at the carotid bulb and proximal internal carotid arteries on both sides of the neck.? There is approximately 30-40 percent stenosis on the left side at this level and on the right side a lesser amount of stenosis approximated at 10-15 percent.? 2.? Patent vertebral arteries. 3.? Patent intracranial arteries. No aneurysms evident. 4. No ring enhancing lesions in the brain and no abnormal meningeal enhancement.? However, there is some periventricular hypodensity consistent with chronic small-vessel white matter ischemic changes. -Chest X-ray 01/01/22: No acute pulmonary findings on this single AP portable view of the chest. Moderate-large size hiatal hernia noted. ASSESSMENT & PLAN: Impressions: Mild Cognitive Impairment primarily in attention/working memory domain. No notable language impairment on assessment tasks or noted in conversation this date, small errors judged to be secondary to attention/working memory. Patient is with good comprehension but poor short-term recall, will benefit from being given or instructed to take notes for important information/details/instructions. Plan for further COMPUTATIONAL CHEMIST services: No further COMPUTATIONAL CHEMIST services needed inpatient or outpatient at this time, patient with very good insight into mild deficits. However, if he or his spouse continue to note prolonged difficulty with attention/recall or communication upon return home, they should seek outpatient COMPUTATIONAL CHEMIST referral. Patient/Caregiver Recommendations: Provide verbal instructions & information one item at a time. Provide written supplementation for important information. Patient should write notes to ensure recall. Education regarding results of evaluation, impact of CVA on cognitive and communication function, and recommendations including cognitive-communication strategies and indications to seek out further COMPUTATIONAL CHEMIST services were provided to the patient and caregiver who indicated agreement with plan of care. Objective Objective Examination: Informal observation/assessment: Verbal Expression: No evidence of dysarthria or apraxia, no articulation errors, noting only 1 word-finding error in conversation (grandsons for grandchildren, but self-corrected). Sentences are grammatical. Auditory Comprehension: All interview questions answered accurately, specifically, and appropriately. Insight: Good, patient report is endorsed by spouse. Orientation: Oriented to self, situation, time, date, place. Memory & Executive Functions: see assessment tasks as below WAB-R Bedside The Bedside Western Aphasia Battery-Revised?(Bedside Record Form), a shortened version of the Western Aphasia Battery Revised (WAB-R), was administered to sample overall language abilities; it is designed to evaluate a patient's language function following stroke, dementia, or other acquired neurological disorder. (Maxx, 2006). Subtest Scores?are indicated below: Subtest?? Score SPONTANEOUS SPEECH ? Information Content ?10 Fluency / Grammatical Competence / Paraphasias ?10 Total? ?20 AUDITORY VERBAL COMPREHENSION ? Yes/No Questions ?9 Sequential Commands ?10 Total? ?19 REPETITION ?9.5 Total? ?9.5 NAMING & WORD FINDING ? Object Naming ?10 Total? ?10 READING ? n/a WRITING ? n/a APRAXIA ? n/a Bedside Aphasia Score: 79.1 (Mild/Borderline) Symbol Cancellation Task from Cognitive-Linguistic Quick Test: +02/19 no errors; noting systematic scanning strategy, good task persistence, attention to detail (exec function) [facility] Mental Status Examination ([facility]) + including errors in Notes: - Clock drawing errors may be indicative of mild visuospatial processing difficulty but likely overestimate deficit in setting of poor motor function in hand/writing, high symbol cancellation score, and good insight into errors. - Other errors in verbal recall and reverse digit string (working memory) likely indicate weakness in attention capacity/working memory leading to poor verbal recall. [facility] All Active Problems?(Updated 01/02/22 @ 18:17 by Madelaine Jose MD) Right hand weakness (Acute) Anomia (Acute) Left carotid stenosis (Acute) Acute CVA (cerebrovascular accident) (Acute) Glaucoma associated with ocular disorder (Acute) Psoriasis (Chronic) Epigastric abdominal pain (Acute) Hiatal hernia with GERD (Acute) Hearing loss (Acute) pt deniesDepression (Chronic) GERD (gastroesophageal reflux disease) (Chronic) Ocular migraine (Acute) Medical History?(Updated 01/02/22 @ 18:17 by Madelaine Jose MD) Acute deep vein thrombosis (DVT) of right lower extremity most recent DVT in right foot 02/05/20Amaurosis fugax, right eye 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 reports for last month he has had occasional loss of vision in R eye. Pt. states PCP and opthamologist are working on it, no diagnosis at this time. Harono Jessica CRNA, awareMegaloblastic anemia due to folate deficiency Normal colonoscopy Obesity Pain in right lower leg Pleural effusion, right Right upper quadrant abdominal pain Right-sided chest pain Tinnitus, right Tremor Unexplained weight loss Surgical History? Colonoscopy - IV Sedation 2008- normalEGD - MAC (07/16/16) Hx of detached retina repair Hx of melanoma excision Thoracentesis (10/24/17) Family History? Other Multiple endocrine neoplasia CPT CODE: 05573 Time Spent: 45 minutes Coding
--- NOTE | 2022-01-03 16:03 | PGE_ITS ---
Date of Service Date of service: 01/03/22 Time of Service: 16:03 Assessment and Plan Assessment and plan (1) Acute CVA (cerebrovascular accident): Status: Acute Assessment and plan: cont. ASA 81 mg along w/ apixaban 5 mg bid, crestor 40 mg nightly. carotid US did not show any hemodynamically significant stenosis. He will still need vascular consultation upon discharge to review his CTA findings. P.T. has cleared him for home but recommends outpatient O.T. consultation. I will ask STAFF [employer]LECT[employer]IC [employer] OFFICER to follow him as outpatient. Professional time spent interviewing and examining patient, discussion of goals of care with hospital team (care management, nursing and consulting professionals) was 30 minutes. (2) Cough: Status: Acute Assessment and plan: patient is coughing up purulent green mucous; I will check CXR, begin cough syrup and bronchodilators, and antibiotics (Levaquin as he has had allergy to PCN), I wonder if he had aspiration event w/ his CVA (3) Sore throat: Status: Acute Assessment and plan: probably from coughing. chloraseptic spray was ordered yesterday but never was brought up. He now has this in his room. (4) Left carotid stenosis: Status: Acute Assessment and plan: as per stroke treatment plan (5) Discharge planning issues: Status: Acute Assessment and plan: patient will be dc home when improved from his respiratory infection. I expect that he will improve overnight and be able to be dc home on oral Levaquin and combivent. He is not hypoxemic. From CVA standpoint he ought to see Dr. Jose in 4 to 6 weeks but will need sooner follow up w/ vascular to evaluate his carotid stenosis. P.T. has indicated that he does not need outpatient P.T. but they do recommend outpatient O.T. Subjective Subjective Interval history since last seen: patient feels lousy today. Did not sleep these past two nights. Severe sore throat and coughing. Now coughing up purulent green mucous. Temp slighly up at 37.6 C. Exam Narrative Exam Narrative: Timmy appears ill, toxic w/ plethoric facies, harsh cough HEENT: throat does not appear red and I do not see any exudate Lungs: coarse expiratory wheezes bilaterally w/ some rhonchi at right base Heart: RRR Neuro: dysphonia voic, no facial asymmetry; normal ROM and strength in both upper and lower extremities although still some residual clumsiness in his right hand Objective Last Vital Signs Temp 37.6 C H 01/03/22 15:27 Pulse 76 01/03/22 15:27 Resp 18 01/03/22 15:27 BP 133/72 01/03/22 15:27 Pulse Ox 96 01/03/22 15:27 Laboratory Results - last 24 hr 01/03/22 01/03/22 06:04 06:04 Hemoglobin A1c 5.7 Triglycerides 66 Total Cholesterol 191 LDL Cholesterol, Calc 104 H HDL Cholesterol 74
--- NOTE | 2022-01-03 16:25 | CHAPLAIN ---
I spoke with Timmy's , Rebecca, outside my office today. She thinks Timmy may stay another night. She is very pleased with care provided by Dr. Snider, who is also a neighbor. Rebecca's been in touch with her two kids and encourages them to Facetime with their dad to see how he's doing.
--- NOTE | 2022-01-03 16:53 | W.PM.PROGNOT ---
Date of Service Date of service: 01/03/22 Time of Service: 16:53 Assessment and Plan Assessment and plan (1) Acute CVA (cerebrovascular accident): Status: Acute (2) Anomia: Status: Acute (3) Right hand weakness: Status: Acute (4) Left carotid stenosis: Status: Acute Assessment and plan: Mr. Burt is admitted with acute ischemic stroke manifested by right hand/arm clumsiness, weakness, and numbness with anomia, migraine, and other cognitive dysfunction (visuospatial?). The MRI brain shows various small ischemic infarcts of varying age throughout the L MCA distribution except for one tiny punctate area of ischemia in the L occipital lobe and therefore in the posterior circulation. Without that L occipital punctate infarct, I would suggest stroke etiology due to complex L common and internal carotid plaque and stenosis. However, if we consider that punctate infarct significant and pertinent then etiology must be from the heart - either aortic plaque or unknown afib. Thus, extensive testing recommended given complexity. Work-up: -LUCIUS (urgent) - to be ordered at [facility] -Telemetry with extended 30 day cardiac monitoring at discharge Medications: -aspirin 81mg daily for secondary stroke prevention -apixaban 5mg BID -rosuvastatin 40mg daily for secondary stroke prevention; long-term goal LDL <70 Other: -Allow permissive hypertension -Occupation therapy for upper extremity weakness, activities of daily living -Urgent [facility] Vascular surgery consult for L carotid stenosis in setting of acute stroke; despite CUS I would still like them to look at this He should follow-up in neurology clinic in 4-6 weeks. Subjective Subjective Interval history since last seen: Stable neurologically overnight. However, worsening cough. Not sleeping well. Seen by ST with no speech findings but + cognitive changes for which recommendations were made. Appreciate their help. No OT note as yet, but continues to work with PT. -CUS (01/03/22): no significant stenosis. -Labs (01/03/22): A1c 5.7, LDL 104 Exam Narrative Exam Narrative: Physical Exam: Constitutional: Patient of apparent stated age, well nourished, well developed, no acute distress Neuro: MS/Language/Speech: Alert, oriented, clear language (fluency and comprehension), no dysarthria; moderate hypophonia Motor: Normal bulk and tone. FMM reduced on the right with a right pronator drift. 5/5 strength in bilateral upper and lower extremities Coordination: Finger to nose performed without dysmetria Objective Last Vital Signs Temp 99.7 F H 01/03/22 15:27 Pulse 76 01/03/22 15:27 Resp 18 01/03/22 15:27 BP 133/72 01/03/22 15:27 Pulse Ox 96 01/03/22 15:27 Laboratory Results - last 24 hr 01/03/22 01/03/22 06:04 06:04 Hemoglobin A1c 5.7 Triglycerides 66 Total Cholesterol 191 LDL Cholesterol, Calc 104 H HDL Cholesterol 74
[2022-01-03] MEDS: Normal Saline Flush 10 ML SYR IVP (17:34)
[2022-01-03] MEDS: Acetaminophen 325 MG TAB 650 MG PO (17:34)
[2022-01-03] MEDS: Albuterol/Ipratropium 3 ML UPD VIAL UPD ×2 (17:35→19:47)
[2022-01-03] MEDS: Benzonatate 100 MG CAP PO (17:35)
[2022-01-03] MEDS: guaiFENesin/D-METHORPHAN HB 5 ML CUP PO (17:36)
[2022-01-03] MEDS: levoFLOXacin 750 MG/150 ML BAG 100 MG IVPB (17:50)
[2022-01-03 17:54] LABS: Source Nasal/Nares
[2022-01-03 18:28] LABS: COVID-19 PCR Negative (Negative)
--- NOTE | 2022-01-03 18:51 | PDOC.CMPRO ---
- If Service Date Differs Date of service: 01/03/22 Time of Service: 18:51 Care Management Progress Note S/O: Timmy was lying in bed when CM met with him. He reported that per MD, he will remain overnight as he has developed a respiratory infection. He is being treated with antibiotics, and per report, there is suspicion for an aspiration event. Timmy is comfortable with the plan to remain, although he is looking forward to returning home. CM will continue to follow. A: Timmy is a 71 year old male admitted to [facility] on 01/01/22 for a stroke. P: Timmy will return home once he is medically cleared. He will follow up with his PCP and discharge plan of care, and his will drive him home via private vehicle. CM will continue to follow.
[2022-01-03] MEDS: Rosuvastatin 10 MG TAB 40 MG PO (19:46)
[2022-01-03] MEDS: Latanoprost 0.005% 2.5 ML BTL OP (19:46)
[2022-01-03] MEDS: Benzonatate 200 MG CAP PO (19:46)
[2022-01-03 21:16] LABS: Procalcitonin < 0.1 ng/mL
[2022-01-04] VITALS (14 sets, daily range): BP systolic 124–148; BP diastolic 73–80; PULSE 68–89; RESP 1–20; TEMP 36.9–38; O2SAT 97–99
[2022-01-04] MEDS: Benzonatate 200 MG CAP PO ×3 (08:25→19:18)
[2022-01-04] MEDS: Aspirin 81 MG CHEW PO (08:25)
[2022-01-04] MEDS: Metoprolol 50 MG TAB PO (08:25)
[2022-01-04] MEDS: Losartan 50 MG TAB PO (08:25)
[2022-01-04] MEDS: Pantoprazole 40 MG TABCR PO ×2 (08:26→19:18)
[2022-01-04] MEDS: Sucralfate 1 GM TAB PO ×4 (08:26→20:45)
[2022-01-04] MEDS: Sertraline 50 MG TAB PO (08:26)
[2022-01-04] MEDS: Apixaban 5 MG TAB PO ×2 (08:26→19:18)
[2022-01-04] MEDS: Albuterol/Ipratropium 3 ML UPD VIAL UPD ×4 (08:51→19:17)
[2022-01-04 10:03] LABS: Anion Gap 11.4 mmol/L (3-11); BUN 12 mg/dL (7-18); CO2 24.6 mmol/L (21.0-32.0); CREATININE 1.1 mg/dL (0.70-1.30); Calcium 9.1 mg/dL (8.5-10.1); Chloride 101 mmol/L (98-107); Estimated GFR 71.77 (mL/min/1.73m2); Glucose 98 mg/dL (74-106); Magnesium 1.7 mg/dL (1.8-2.4); Potassium 3.5 mmol/L (3.5-5.1); Sodium 137 mmol/L (136-145)
[2022-01-04] MEDS: Magnesium Oxide 400 MG TAB PO (11:53)
--- NOTE | 2022-01-04 14:31 | PHA.REVIEW2 ---
Pharmacy Admission Review - Admission Clinical Review (Last Updated 01/02/22 @ 12:10 by Juaquin Hdz MD) Discharge planning issues (Acute) Sore throat (Acute) Cough (Acute) Right hand weakness (Acute) Anomia (Acute) Left carotid stenosis (Acute) Acute CVA (cerebrovascular accident) (Acute) atorvastatin Allergy (Mild, Verified 01/01/22 16:55) unknown naproxen Allergy (Mild, Verified 01/01/22 16:55) bleeding methotrexate Adverse Reaction (Intermediate, Unverified 01/01/22 16:55) vomitting lisinopril Adverse Reaction (Mild, Unverified 01/01/22 16:55) coughing amlodipine Adverse Reaction (Unverified 01/01/22 16:55) increased BP and HR per pt/spouse 10/24/17 Penicillins Adverse Reaction (Unverified 01/01/22 16:55) Nausea Resuscitation Status Full Code Height 5 ft 8 in Weight 94.1 kg - Renal Dosing Renal Dosing: BUN 12 mg/dL (7-18) 01/04/22 08:15 Creatinine 1.1 mg/dL (0.70-1.30) 01/04/22 08:15 Medications needing adjustments: Reviewed (Crcl ~68.5 mL/min current meds okay) - Anticoagulation Anticoagulation: Hgb 12.4 g/dL (13.5-17.5) L 01/01/22 17:02 Hct 37.6 % (40.0-50.0) L 01/01/22 17:02 Plt Count 196 10^3/uL (130-400) 01/01/22 17:02 INR 1.0 (0.9-1.1) 01/01/22 17:02 Creatinine 1.1 mg/dL (0.70-1.30) 01/04/22 08:15 DVT Prophylaxis: N/A Therapeutic Anticoagulation: Reviewed Medications: Apixaban - Opiate Usage Evaluate Pain Scale/Pains Meds: N/A - Relevant Labs Sodium 137 mmol/L (136-145) 01/04/22 08:15 Potassium 3.5 mmol/L (3.5-5.1) 01/04/22 08:15 Chloride 101 mmol/L (98-107) 01/04/22 08:15 Magnesium 1.7 mg/dL (1.8-2.4) L 01/04/22 08:15 Electrolytes, C-Reactive P, ESR: Reviewed (PO mag replacement ordered) - DM Control DM Control: Glucose 98 mg/dL (74-106) 01/04/22 08:15 Hemoglobin A1c 5.7 % (<5.7) 01/03/22 06:04 DM Control: Reviewed - Cardiac Review Cardiac Review: Troponin I < 50 ng/L (<or=60) 01/01/22 19:57 BP, HR, EF%: Reviewed (BP has between normal to high so far this admission.) - Qtc Review QTc: Reviewed (QTc 442 on admission) - IV to PO Switch IV Medications: Reviewed - Home Meds Home Med List reviewed: Reviewed Relevent Home Meds Not ordered & why?: cholecalciferol, multivitamin - Current meds Current Medication Order Review: Intervened (patient had metoprolol tartrate listed on home med list as given once per day (tartrate is usually dosed twice per day), per external med history patient has been taking the metoprolol succinate once a day. Provider made aware, home med list update, and active order changed.) - Comments Comments/Follow Ups: Watch BP, SCr, labs, for culture results and for med changes. Antibiotic Review - Pharmacy Antibiotic Review Pharmacy Antibiotic Activity: C/S review (Blood cultures and strep culture pending. Sputum culture growing normal francisco j; gram stain few gram positive cocci and rare gram negative rods.), Reviewed, no change (levofloxacin continues (day 2 starts this evening)) Relevant Labs: Relevant Labs 01/03/22 20:20 Procalcitonin < 0.1
--- NOTE | 2022-01-04 16:25 | CMPROGNOTE_ITS ---
- If Service Date Differs Date of service: 01/04/22 Time of Service: 16:25 Care Management Progress Note S/O: Timmy was sitting up in his chair when CM met with him. He stated that he had a fever overnight, and early this morning, which was new. Per report, he may require continued monitoring due to his fever. His , Rebecca, stated that she already made follow up appointments at his PCP (Monday 01/08 @ 9:10am) and with Neuro (02/19/22). Per report, he will likely discharge with a site monitor. CM will continue to follow. A: Timmy is a 71 year old male admitted to [facility] on 01/01/22 for a stroke. P: Timmy will return home once he is medically cleared. He will follow up with his PCP and discharge plan of care, and his will drive him home via private vehicle. CM will continue to follow.
[2022-01-04] MEDS: Normal Saline Flush 10 ML SYR IVP (17:20)
[2022-01-04] MEDS: levoFLOXacin 750 MG/150 ML BAG 100 MG IVPB (17:20)
--- NOTE | 2022-01-04 18:28 | W.PM.PROGNOT ---
Date of Service Date of service: 01/04/22 Time of Service: 18:28 Assessment and Plan Assessment and plan (1) Acute CVA (cerebrovascular accident): Status: Acute Assessment and plan: Continue aspirin, apixaban, rosuvastatin. Will need an outpatient LUCIUS, cardiac event recorder, vascular surgery c/s. (2) Cough: Status: Acute Assessment and plan: While CXR is negative, clinically has pneumonia - possibly, aspiration. Improving on levofloxacin. Defervesced. Await blood cultures and sputum culture result. (3) Sore throat: Status: Acute Assessment and plan: Resolved. Possibly associated with a cough. (4) Left carotid stenosis: Status: Acute Assessment and plan: As above urgent vascular surgery follow up at [facility]. (5) Discharge planning issues: Status: Acute Assessment and plan: Outpatient OT. Anticipate d/c home tomorrow with a cardiac event recorder, referral for vascular and a LUCIUS. Discussed with Dr Jose Subjective Subjective Interval history since last seen: Mr Domínguez states he coughed a lot of last night and was bringing up green thick sputum. He as febrile until about noon today. He feels a lot better now. Denies dizziness, chest pain except for inferior rib pain from coughing, shortness of breath. Denies nausea. States his headache has passed. Dizzy lat night after his in haler, but not now. Overall, feels much better. Exam Narrative Exam Narrative: General: Pleasant male who is sitting comfortably in a chair, on RA, not coughing, no dyspnea/tachypnea/cyanosis HEENT: EOMI, MMM Heart: RRR, no m/r/g Lungs: CTAB Abdomen: soft,nontender, nondistended Extremities: no edema BLEs Objective Last Vital Signs Temp 37.3 C 01/04/22 11:57 Pulse 68 01/04/22 15:00 Resp 12 01/04/22 08:58 BP 148/80 H 01/04/22 06:58 Pulse Ox 99 01/04/22 08:58 Laboratory Results - last 24 hr 01/03/22 01/03/22 01/04/22 17:30 20:20 08:15 Sodium 137 Potassium 3.5 Chloride 101 Carbon Dioxide 24.6 Anion Gap 11.4 H BUN 12 Creatinine 1.1 Est GFR (CKD-EPI 2020) 71.77 Glucose 98 Calcium 9.1 Magnesium 1.7 L Procalcitonin < 0.1 SARS-CoV-2 (PCR) Negative
[2022-01-04] MEDS: Rosuvastatin 10 MG TAB 40 MG PO (19:18)
[2022-01-04] MEDS: Latanoprost 0.005% 2.5 ML BTL OP (19:20)
[2022-01-04 22:34] LABS: Legionella Ag Detection Urine Negative (Negative)
[2022-01-04] MEDS: Melatonin 3 MG TAB 6 MG PO (23:50)
[2022-01-04] MEDS: guaiFENesin/D-METHORPHAN HB 5 ML CUP PO (23:50)
[2022-01-05] VITALS (8 sets, daily range): BP systolic 119–136; BP diastolic 62–79; PULSE 64–87; RESP 1–16; TEMP 36.7–37.3; O2SAT 94–99
[2022-01-05 06:50] LABS: Abs Immature Grans 0.05 10^3/uL (0.0-0.06); Absolute Basophil Count 0.07 10^3/uL (0.0-0.2); Absolute Lymphocyte Count 1.63 10^3/uL (1.2-3.4); Absolute Monocyte Count 1.17 10^3/uL (0.1-0.8); Absolute Neutrophil Count 4.46 10^3/uL (1.2-6.7); Basophils % 0.9; Eosinophils % 2.6; HCT 36.5 % (40.0-50.0); HGB 11.7 g/dL (13.5-17.5); Immature Grans % 0.7; Lymphocytes % 21.5; MCH 29.8 pg (27.0-33.0); MCHC 32.1 % (32.0-36.0); MCV 93 fL (80-95); MPV 9.4 fL (8.0-11.0); Monocytes % 15.4; Neutrophils % 58.9; Platelet Count 215 10^3/uL (130-400); RBC 3.93 10^6/uL (4.36-5.78); RDW 13.5 % (11.8-14.1); RDW-SD 46.4 fL; WBC 7.58 10^3/uL (4.4-10.8)
[2022-01-05 07:09] LABS: Anion Gap 6.3 mmol/L (3-11); BUN 15 mg/dL (7-18); C-Reactive Protein 8.18 mg/dL (0.0-0.3); CO2 27.7 mmol/L (21.0-32.0); CREATININE 1.2 mg/dL (0.70-1.30); Chloride 100 mmol/L (98-107); Estimated GFR 64.65 (mL/min/1.73m2); Glucose 97 mg/dL (74-106); Potassium 3.9 mmol/L (3.5-5.1); Sodium 134 mmol/L (136-145)
[2022-01-05] MEDS: Albuterol/Ipratropium 3 ML UPD VIAL UPD ×2 (08:03→11:59)
[2022-01-05] MEDS: Benzonatate 200 MG CAP PO ×2 (08:52→13:16)
[2022-01-05] MEDS: Magnesium Oxide 400 MG TAB PO (08:52)
[2022-01-05] MEDS: Apixaban 5 MG TAB PO (08:52)
[2022-01-05] MEDS: Metoprolol CR 50 MG TABCR PO (08:52)
[2022-01-05] MEDS: Losartan 50 MG TAB PO (08:52)
[2022-01-05] MEDS: Pantoprazole 40 MG TABCR PO (08:52)
[2022-01-05] MEDS: Aspirin 81 MG CHEW PO (08:52)
[2022-01-05] MEDS: Sertraline 50 MG TAB PO (08:52)
[2022-01-05] MEDS: Sucralfate 1 GM TAB PO ×2 (08:53→11:14)
--- NOTE | 2022-01-05 11:50 | DSE_ITS ---
Date of service: 01/05/22 Time of Service: 11:50 DS: Diagnosis Discharge Diagnosis (1) Acute CVA (cerebrovascular accident): Status: Acute (2) Cough: Status: Acute (3) Sore throat: Status: Acute (4) Left carotid stenosis: Status: Acute Discharge Plan Disposition Patient Disposition: HOME Condition: Improving Discharge Details Reason For Visit: Stroke Admit Date/Time: 01/03/22 16:55 Admit Provider: Vitaliy Hutchins Attending Provider: Vitaliy Hutchins Primary Care Provider: Yuan Tian Hospital Course Hospital Course: This is a 71 yo male patient with pmhx of HTN, GERD, PUD w previous GI bleeding, and 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 Through the day he reported it did get better, but still noted significant clumsiness in hand, unable to manipulate phone or write. In ED initial findings of note for right pronator drift and hand clumsiness. CTA showing no brain lesions and no significant stenosis.? He did complain of a global headache, denied visual changes, no change in speech or language, no weakness RLE and no sensory changes.? Aspirin 81 mg daily was added to his medications.?? Distribution of his CVA on his MRI suggest embolic CVA.? He is maintained on Carafate for GERD, and started on PPI here.? He is being discharged with a 30 day event recorder to document whether or not he has PAF. Echo: Normal left ventricular wall thickness and chamber size.? Estimated ejection fraction is 60%.? Wall motion is normal Normal right ventricular size and systolic function Both atria are normal in size No intracardiac shunting is identified with administration of agitated saline There is no structural or hemodynamically significant valvular disease He was started on Crestor. He and his do not recall what reaction he had to atorvastatin and he has tried no other statins. The MRI brain shows various small ischemic infarcts of varying age throughout the L MCA distribution except for one tiny punctate area of ischemic in the L occipital lobe and therefore in the posterior circulation.?He was seen by Neurology and ?in regards to the MRI Brain, she writes, without that L occipital punctate infarct, the stroke etiology due to complex L common and internal carotid plaque and stenosis.? However, considering that punctate infarct significant and pertinent then etiology must be from the heart - either aortic plaque or unknown afib.? Thus, extensive testing recommended given complexity.? Carotid ultrasound was performed - No evidence of a hemodynamically significant carotid stenosis. 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 No notable language impairment on assessment tasks or noted in conversation this date, small errors judged to be secondary to attention/working memory. Patient is with good comprehension but poor short-term recall, will benefit from being given or instructed to take notes for important information/details/instructions. A referral for vascular surgery at [facility] and request for LUCIUS have been completed. He has stable vital signs.?He does not have any visible deficits and does not have any complaints. He will continue Eliquis and Aspirin. He will continue carafate and protonix. He was started on Crestor. He will complete the course of levofloxacin He was discharged to home with a cardiac event monitor with his with no formal services. Discussed with Dr Ralph. Home Meds and New Rx's Prescriptions: New benzonatate 200 mg Capsule 200 mg PO TID Qty: 10 0RF rosuvastatin 10 mg Tablet 40 mg PO QPM Qty: 120 0RF Rx Instructions: OK to use 2 x 20 mg or 1 x 40 mg if available - this was the only option Eliquis 5 mg Tablet 5 mg PO BID Qty: 30 0RF aspirin [Children's Aspirin] 81 mg Tablet,Chewable 81 mg PO DAILY Qty: 0 0RF magnesium chloride 64 mg magnesium tablet 64 mg PO DAILY Qty: 30 0RF levofloxacin 750 mg tablet 750 mg PO DAILY 5 Days Qty: 5 0RF Continued verapamil 240 mg capsule,ext rel. pellets 24 hr 240 mg PO DAILY multivitamin [Daily Multi-Vitamin] 1 EACH tablet 1 ea PO DAILY cholecalciferol (vitamin D3) 1,000 UNIT capsule 1,000 unit PO DAILY sertraline 50 MG tablet 50 mg PO DAILY latanoprost [Xalatan] 0.005 % drops 1 drp ophthalmic (eye) DAILY brimonidine-timolol [Combigan] 0.2-0.5 % drops 1 drp ophthalmic (eye) BID pantoprazole 40 mg tablet,delayed release (DR/EC) See Rx Instructions .ROUTE .COMPLEX Qty: 90 4RF Dose Instruction: TAKE ONE TABLET BY MOUTH EVERY DAY Rx Instructions: TAKE ONE TABLET BY MOUTH EVERY DAY sucralfate [Carafate] 1 gram tablet 1 g PO QACHS Qty: 120 12RF metoprolol succinate 50 mg tablet extended release 24 hr 50 mg PO DAILY Label Comments: TAKE ONE TABLET BY MOUTH DAILY losartan 50 MG tablet 50 mg PO DAILY Discontinued Eliquis 2.5 mg tablet PO BID Discharge Instructions Instructions: Levofloxacin (By mouth), Apixaban (By mouth), Stroke (DC) Stand Alone Forms: Nursing Discharge Form Referrals: [facility] Vascular [Other] (Referral sent. Office will call you with appointment) [facility] [Provider Group] - 01/18/22 11:00 am (OT assessment and recommendations ADLs; recent CVA - upper extremity weakness. ) Yuan Tian MD [Primary Care Provider] - 01/08/22 8:55 am Madelaine Jose MD [ [facility] STAFF PHYSICIAN] - 02/07/22 9:30 am Activity:: Activity as Tolerated Equipment/Supplies:: No Equipment Needed Diet:: Low Sodium Discharge Orders Discharge Orders: Discharge Order (Routine); Ordered 01/05/22 Ordered By: Vania Alston Discharge Data Discharge Date/Time-TO BE ENTERED AT DEPARTURE: 01/05/22 13:29 DS: Summary Time Spent with Patient providing and/or coordinating discharge services: Greater than 30 minutes Status at Discharge Functional status at discharge: independent ambulation Overall status at discharge: patient is progressing back to baseline Mental Status: mental status grossly normal Speech and Movement: speech and movement normal Mood: congruent mood Affect: normal affect Exam Narrative Exam Narrative: General: Pleasant male who is sitting comfortably in a chair, on RA, not coughing, no dyspnea/tachypnea/cyanosis; spouse is in the room at time of exam. HEENT: EOMI, MMM Heart: RRR, no m/r/g Lungs: CTAB Abdomen: soft,nontender, nondistended Extremities: no edema BLEs Psych Mental Status: mental status grossly normal Speech and Movement: speech and movement normal Mood: congruent mood Affect: normal affect DS: Data Vitals/I&O Vitals and I&O: Vital Signs Temperature 36.7 C 01/05/22 11:20 Temperature Source Tympanic 01/05/22 11:20 Pulse 69 01/05/22 11:20 Pulse Rhythm Regular 01/05/22 10:26 Pulse 80 01/01/22 19:30 Respiratory Rate 16 01/05/22 11:20 Respiratory Effort Non-Labored 01/05/22 10:26 Respiratory Depth Normal 01/05/22 10:26 Respiratory Pattern Normal 01/05/22 10:26 Blood Pressure 123/79 01/05/22 11:20 Blood Pressure Mean 102 01/01/22 17:17 Blood Pressure Position Sitting 01/01/22 16:43 Pulse Oximetry 95 01/05/22 11:20 Oxygen Delivery Method Room Air 01/05/22 11:20 Oxygen Flow Rate 0 01/05/22 11:20 Pain Level 0 01/05/22 11:20 Comment 01/04/22 06:58 Intake & Output 01/04/22 01/04/22 01/05/22 11:59 23:59 11:59 Intake Total 360 / 360 400 / 400 Balance 360 / 360 400 / 400 Intake: Oral 360 / 360 400 / 400 Other: Urine Color Pale Urine Appearance Clear Clear Urine Odor None Comment unmeasured Voiding Methods Toilet Data Completed and Pending Labs on day of discharge: Labs from last 24 hours 01/05/22 01/05/22 01/03/22 06:20 06:20 17:16 WBC 7.58 RBC 3.93 L Hgb 11.7 L Hct 36.5 L MCV 93 MCH 29.8 MCHC 32.1 RDW 13.5 Plt Count 215 MPV 9.4 Immature Gran % 0.7 Neutrophils % 58.9 Lymphocytes % 21.5 Monocytes % 15.4 Eosinophils % 2.6 Basophils % 0.9 Nucleated RBC % 0.0 Absolute Neutrophils 4.46 Absolute Lymphocytes 1.63 Absolute Monocytes 1.17 H Absolute Eosinophils 0.20 Absolute Basophils 0.07 Sodium 134 L Potassium 3.9 Chloride 100 Carbon Dioxide 27.7 Anion Gap 6.3 BUN 15 Creatinine 1.2 Est GFR (CKD-EPI 2020) 64.65 Glucose 97 Calcium 9.0 Magnesium 2.0 C-Reactive Protein 8.18 H Urine Legionella Ag Negative Preliminary micro results at discharge 01/03/22 16:36 Sputum Culture - Preliminary Sputum Normal [place] 01/03/22 20:20 Blood Culture - Preliminary Blood NO GROWTH 24 HOURS 01/03/22 20:20 Blood Culture - Preliminary Blood NO GROWTH 24 HOURS PFSH All Active Problems (Updated 01/06/22 @ 00:02 by EDILBERTO VELASCO) Sore throat (Acute) Cough (Acute) Right hand weakness (Acute) Anomia (Acute) Left carotid stenosis (Acute) Acute CVA (cerebrovascular accident) (Acute) Glaucoma associated with ocular disorder (Acute) Psoriasis (Chronic) Epigastric abdominal pain (Acute) Hiatal hernia with GERD (Acute) Hearing loss (Acute) pt denies Depression (Chronic) GERD (gastroesophageal reflux disease) (Chronic) Ocular migraine (Acute) Medical History (Updated 01/06/22 @ 00:02 by [place] [employer]ess VELASCO) Acute deep vein thrombosis (DVT) of right lower extremity most recent DVT in right foot 02/05/20 Amaurosis fugax, right eye 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 reports for last month he has had occasional loss of vision in R eye. Pt. states PCP and opthamologist are working on it, no diagnosis at this time. 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 Normal colonoscopy Obesity Pain in right lower leg Pleural effusion, right Right upper quadrant abdominal pain Right-sided chest pain Tinnitus, right Tremor Unexplained weight loss Surgical History Colonoscopy - IV Sedation 2007- normal EGD - MAC (07/16/16) Hx of detached retina repair Hx of melanoma excision Thoracentesis (10/24/17) Family History Other Multiple endocrine neoplasia Social History Smoking/Tobacco Use Status: Never Smoking risk assessment performed?: Yes Alcohol Intake: current Alcohol Intake frequency: 0-2 drinks per day Alcohol type: hard liquor Drug use: Never Substance use type: does not use Current gender identity: male Do you feel safe at home: Yes Do you feel safe in your relationship?: Yes
--- NOTE | 2022-01-05 13:43 | PDOC.CMDIS ---
- If Service Date Differs Date of service: 01/05/22 Time of Service: 13:43 LACE Index Scoring Tool - Questions: Length of Stay (in days): 2 Acuity (Admit via E.D.?): Yes E.D. Visits: 1 - Answers: Total Score: 6 Risk of Readmission: Low Risk Care Management Discharge Reason for Hospitalization: stroke Discharge Plan: Timmy returned home today with a recommendation for outpatient OT, neuro, and a referral for Vascular at [facility]. CM will send the discharge summary to [facility] to support the referral. His will drive him home via private vehicle. He will follow up with his PCP and discharge plan of care. Patient/Family Education Needs: Review discharge instructions with nursing, discussion of self care needs including ask me three. Services Needed at Discharge: Occupational Therapy (outpatient)
[2022-01-05 14:43] LABS: Streptococcus Pneumoniae Ag, U Negative (Negative)
== END 2022-01-05 13:29 | disposition home or self-care (01) | DRG 64 ==
LOC: ER 20:34 → MS 20:36
PROVIDERS: Internal Medicine; Admitting Provider General Practice; Emergency Provider Emergency Medicine; PCP Internal Medicine; Visit Provider General Practice
DX: I63.89 Other cerebral infarction (principal); J69.0 Pneumonitis due to inhalation of food and vomit; K22.10 Ulcer of esophagus without bleeding; R48.8 Other symbolic dysfunctions; I65.22 Occlusion and stenosis of left carotid artery; Z79.01 Long term (current) use of anticoagulants; Z86.718 Personal history of other venous thrombosis and embolism; R27.8 Other lack of coordination; Z86.16 Personal history of COVID-19; H40.9 Unspecified glaucoma; L40.9 Psoriasis, unspecified; F32.A Depression, unspecified; K21.9 Gastro-esophageal reflux disease without esophagitis; K44.9 Diaphragmatic hernia without obstruction or gangrene; I10 Essential (primary) hypertension; D53.1 Other megaloblastic anemias, not elsewhere classified; Z87.11 Personal history of peptic ulcer disease; G43.909 Migraine, unspecified, not intractable, without status migrainosus; L40.50 Arthropathic psoriasis, unspecified; R05.1 Acute cough
CPT/HCPCS: 36415; 36416; 70496; 70498; 80048; 80053; 80061; 80307; 82962; 84145; 87040; 87449; 87635; 87637; 90662; 93005; 93270; 93306; 97162; 99220; 99232; 99284; 99285; 70551; 71045; 71046; 80320; 81003; 81015; 83036; 83735; 84484; 85025; 85610; 85730; 86140; 87070; 87081; 87205; 87899; 92523; 93010; 93880; 94640; 94667; 99219; 99225; 99233; 99239; J1956; J7620

== ENCOUNTER 2022-02-09 09:43 | Outpatient (CLI) | payer MEDICARE, BC, SELFPAY ==
--- NOTE | 2022-02-09 13:04 | W.CARDEVENT ---
Date of service: 02/09/22 Time of Service: 13:04 Cardiac Event Recorder Referring Provider:: Yuan Tian Indications:: Stroke Cardiac Event Note: This is a 30-day event monitor ordered because of a history of stroke Predominant rhythm was sinus with an average heart rate of 72. Minimum was 57, maximum 109 There were several self-limited episodes of atrial fibrillation. These occurred on January 16, January 25. Rates in atrial fibrillation were controlled averaging approximately 60 There were no significant ventricular dysrhythmias There were no apparent patient's symptoms
== END 2022-02-09 09:44 | disposition home or self-care (01) ==
LOC: CARDOPNVT 09:43
PROVIDERS: PCP Internal Medicine; Visit Provider Internal Medicine Cardiovascular Disease
DX: I63.9 Cerebral infarction, unspecified (principal); I48.91 Unspecified atrial fibrillation
CPT/HCPCS: 93272

== ENCOUNTER → 2022-02-19 11:21 | Outpatient (BNVA) | payer MEDICARE, BC, SELFPAY | PROVIDERS: PCP Internal Medicine; Referring Provider Internal Medicine; Visit Provider Psychiatry & Neurology Neurology | DX: I69.331 Monoplegia of upper limb following cerebral infarction affecting right dominant side (principal); I69.318 Other symptoms and signs involving cognitive functions following cerebral infarction; Z79.01 Long term (current) use of anticoagulants; Z79.82 Long term (current) use of aspirin; Z79.02 Long term (current) use of antithrombotics/antiplatelets; K59.00 Constipation, unspecified; I65.22 Occlusion and stenosis of left carotid artery; I48.0 Paroxysmal atrial fibrillation | CPT/HCPCS: 99215 ==

== ENCOUNTER 2022-03-15 15:10 | Outpatient (CLI) | payer MEDICARE, BC, SELFPAY ==
[2022-03-16 13:39] LABS: Antithrombin Activity, Plasma 89 % (80 - 130)
[2022-03-19 11:27] LABS: Prothrombin G20210A Mutation Negative (Negative)
== END 2022-03-15 15:11 | disposition home or self-care (01) ==
LOC: LBO 15:11
PROVIDERS: PCP Internal Medicine; Visit Provider Internal Medicine Hematology & Oncology
DX: I82.401 Acute embolism and thrombosis of unspecified deep veins of right lower extremity
CPT/HCPCS: 36415; 81240; 85300

== ENCOUNTER 2022-04-02 10:14 | Outpatient (REF) | payer MEDICARE, BC, SELFPAY ==
[2022-04-02 15:44] LABS: Abs Immature Grans 0.03 10^3/uL (0.0-0.06); Absolute Basophil Count 0.09 10^3/uL (0.0-0.2); Absolute Eosinophil Count 0.11 10^3/uL (0.0-0.7); Absolute Lymphocyte Count 1.62 10^3/uL (1.2-3.4); Absolute Monocyte Count 0.63 10^3/uL (0.1-0.8); Absolute Neutrophil Count 3.97 10^3/uL (1.2-6.7); Basophils % 1.4; Eosinophils % 1.7; HCT 39.1 % (40.0-50.0); HGB 12.4 g/dL (13.5-17.5); Immature Grans % 0.5; Lymphocytes % 25.1; MCH 27.5 pg (27.0-33.0); MCHC 31.7 % (32.0-36.0); MCV 87 fL (80-95); MPV 9.6 fL (8.0-11.0); Monocytes % 9.8; Neutrophils % 61.5; Platelet Count 318 10^3/uL (130-400); RBC 4.51 10^6/uL (4.36-5.78); RDW 14.6 % (11.8-14.1); RDW-SD 46.9 fL; WBC 6.45 10^3/uL (4.4-10.8)
[2022-04-02 15:54] LABS: Calculated LDL 81 mg/dL (<100); Cholesterol 157 mg/dL (<200); HDL Cholesterol 58 mg/dL (40-60); Triglyceride 93 mg/dL (<150)
== END 2022-04-02 10:15 | disposition home or self-care (01) ==
LOC: NCHCN 10:14
PROVIDERS: PCP Internal Medicine; Visit Provider Internal Medicine
DX: I10 Essential (primary) hypertension (principal); I69.30 Unspecified sequelae of cerebral infarction; I48.0 Paroxysmal atrial fibrillation; Z86.16 Personal history of COVID-19
CPT/HCPCS: 80061; 85025

== ENCOUNTER 2022-04-03 12:49 | Outpatient (CLI) | payer MEDICARE, BC, SELFPAY ==
[2022-04-03 11:45] LABS: HCT 33.3 % (40.0-50.0); HGB 10.6 g/dL (13.5-17.5)
== END 2022-04-03 12:50 | disposition home or self-care (01) ==
LOC: LBO 12:49
PROVIDERS: PCP Internal Medicine; Visit Provider Internal Medicine
DX: Z87.19 Personal history of other diseases of the digestive system (principal); D64.9 Anemia, unspecified
CPT/HCPCS: 36415; 86850; 86900; 86901; 85014; 85018

== ENCOUNTER 2022-04-04 14:55 | Outpatient (CLI) | payer MEDICARE, BC, SELFPAY ==
[2022-04-04 13:05] LABS: HCT 31.1 % (40.0-50.0); HGB 9.9 g/dL (13.5-17.5)
== END 2022-04-04 14:56 | disposition home or self-care (01) ==
LOC: LBO 14:55
PROVIDERS: PCP Internal Medicine; Visit Provider Internal Medicine
DX: D64.9 Anemia, unspecified (principal); Z87.19 Personal history of other diseases of the digestive system
CPT/HCPCS: 36415; 85014; 85018

== ENCOUNTER 2022-04-05 02:29 | Outpatient (CLI) | payer MEDICARE, BC, SELFPAY ==
[2022-04-05 12:02] LABS: HGB 9.6 g/dL (13.5-17.5)
== END 2022-04-05 02:30 | disposition home or self-care (01) ==
LOC: LBO 02:29
PROVIDERS: PCP Internal Medicine; Visit Provider Internal Medicine
DX: Z87.19 Personal history of other diseases of the digestive system (principal); D64.9 Anemia, unspecified
CPT/HCPCS: 36415; 85014; 85018

== ENCOUNTER 2022-04-09 14:55 | Outpatient (CLI) | payer MEDICARE, BC, SELFPAY ==
[2022-04-09 13:44] LABS: HCT 29.2 % (40.0-50.0); HGB 9.4 g/dL (13.5-17.5)
== END 2022-04-09 14:56 | disposition home or self-care (01) ==
LOC: LBO 14:56
PROVIDERS: PCP Internal Medicine; Visit Provider Internal Medicine
DX: Z87.19 Personal history of other diseases of the digestive system (principal)
CPT/HCPCS: 36415; 85014; 85018

== ENCOUNTER 2022-04-12 04:25 | Outpatient (CLI) | payer MEDICARE, BC, SELFPAY ==
[2022-04-12 15:12] LABS: HGB 8.7 g/dL (13.5-17.5)
== END 2022-04-12 04:26 | disposition home or self-care (01) ==
PROVIDERS: PCP Internal Medicine; Visit Provider Internal Medicine
DX: Z87.19 Personal history of other diseases of the digestive system (principal)
CPT/HCPCS: 36415; 85018

== ENCOUNTER 2022-04-19 14:58 | Outpatient (CLI) | payer MEDICARE, BC, SELFPAY ==
[2022-04-19 14:07] LABS: HCT 28.9 % (40.0-50.0); HGB 8.8 g/dL (13.5-17.5)
== END 2022-04-19 14:59 | disposition home or self-care (01) ==
LOC: LBO 14:59
PROVIDERS: PCP Internal Medicine; Visit Provider Internal Medicine
DX: Z87.19 Personal history of other diseases of the digestive system (principal)
CPT/HCPCS: 36415; 85014; 85018

== ENCOUNTER 2022-04-20 16:13 | Outpatient (CLI) | payer MEDICARE, BC, SELFPAY ==
[2022-04-20 15:28] LABS: HCT 27.5 % (40.0-50.0); HGB 8.8 g/dL (13.5-17.5)
== END 2022-04-20 16:14 | disposition home or self-care (01) ==
LOC: LBO 16:14
PROVIDERS: PCP Internal Medicine; Visit Provider Internal Medicine
DX: Z87.19 Personal history of other diseases of the digestive system (principal)
CPT/HCPCS: 36415; 85014; 85018

== ENCOUNTER 2022-04-23 14:01 | Outpatient (CLI) | payer MEDICARE, BC, SELFPAY ==
[2022-04-23 12:07] LABS: HGB 8.8 g/dL (13.5-17.5)
== END 2022-04-23 14:02 | disposition home or self-care (01) ==
LOC: LBO 14:02
PROVIDERS: PCP Internal Medicine; Visit Provider Internal Medicine
DX: D64.9 Anemia, unspecified (principal); Z87.19 Personal history of other diseases of the digestive system
CPT/HCPCS: 36415; 85014; 85018

== ENCOUNTER 2022-04-26 02:11 | Outpatient (CLI) | payer MEDICARE, BC, SELFPAY ==
[2022-04-26 11:54] LABS: HCT 29.2 % (40.0-50.0); HGB 8.8 g/dL (13.5-17.5)
== END 2022-04-26 02:12 | disposition home or self-care (01) ==
PROVIDERS: PCP Internal Medicine; Visit Provider Internal Medicine
DX: Z87.19 Personal history of other diseases of the digestive system (principal)
CPT/HCPCS: 36415; 85014; 85018

== ENCOUNTER 2022-05-11 02:15 | Outpatient (CLI) | payer MEDICARE, BC, SELFPAY ==
[2022-05-11 12:55] LABS: HCT 31.8 % (40.0-50.0); HGB 9.9 g/dL (13.5-17.5); MCH 26.8 pg (27.0-33.0); MCHC 31.1 % (32.0-36.0); MCV 86 fL (80-95); MPV 8.8 fL (8.0-11.0); Platelet Count 266 10^3/uL (130-400); RDW 17.5 % (11.8-14.1); RDW-SD 52.8 fL; WBC 6.54 10^3/uL (4.4-10.8)
== END 2022-05-11 02:16 | disposition home or self-care (01) ==
PROVIDERS: PCP Internal Medicine; Visit Provider Internal Medicine
DX: D50.0 Iron deficiency anemia secondary to blood loss (chronic) (principal)
CPT/HCPCS: 36415; 85027

== ENCOUNTER 2022-05-25 01:44 | Outpatient (CLI) | payer MEDICARE, BC, SELFPAY ==
[2022-05-25 11:23] LABS: HCT 36.9 % (40.0-50.0); HGB 11.8 g/dL (13.5-17.5)
== END 2022-05-25 01:45 | disposition home or self-care (01) ==
PROVIDERS: PCP Internal Medicine; Visit Provider Internal Medicine
DX: D50.0 Iron deficiency anemia secondary to blood loss (chronic) (principal)
CPT/HCPCS: 36415; 85014; 85018

== ENCOUNTER 2022-10-04 19:45 | Outpatient (REF) | payer MEDICARE, BC, SELFPAY ==
[2022-10-04 17:16] LABS: Abs Immature Grans 0.02 10^3/uL (0.0-0.06); Absolute Basophil Count 0.07 10^3/uL (0.0-0.2); Absolute Eosinophil Count 0.29 10^3/uL (0.0-0.7); Absolute Monocyte Count 0.77 10^3/uL (0.1-0.8); Absolute Neutrophil Count 3.01 10^3/uL (1.2-6.7); Basophils % 1.3; Eosinophils % 5.2; HCT 41.9 % (40.0-50.0); Immature Grans % 0.4; Lymphocytes % 25.2; MCH 31.8 pg (27.0-33.0); MCHC 33.4 % (32.0-36.0); MCV 95 fL (80-95); MPV 9.4 fL (8.0-11.0); Monocytes % 13.8; Neutrophils % 54.1; Platelet Count 219 10^3/uL (130-400); RDW 15.3 % (11.8-14.1); RDW-SD 54.2 fL; WBC 5.56 10^3/uL (4.4-10.8)
[2022-10-04 18:01] LABS: ALT 44 U/L (16-63); AST 38 U/L (15-37); Albumin 4.1 g/dL (3.4-5.0); Alkaline Phosphatase 59 U/L (46-116); Anion Gap 8.2 mmol/L (3-11); BUN 15 mg/dL (7-18); Bilirubin, Total 0.4 mg/dL (0.2-1.0); CO2 28.8 mmol/L (21.0-32.0); CREATININE 1.2 mg/dL (0.70-1.30); Calcium 9.4 mg/dL (8.5-10.1); Chloride 105 mmol/L (98-107); Estimated GFR 64.65 (mL/min/1.73m2); Glucose 90 mg/dL (74-106); Potassium 4.6 mmol/L (3.5-5.1); Sodium 142 mmol/L (136-145); Total Protein 8.2 g/dL (6.4-8.2)
== END 2022-10-04 19:46 | disposition home or self-care (01) ==
LOC: NCHCN 19:45
PROVIDERS: PCP Internal Medicine; Visit Provider Internal Medicine
DX: K92.2 Gastrointestinal hemorrhage, unspecified (principal); D50.0 Iron deficiency anemia secondary to blood loss (chronic)
CPT/HCPCS: 80053; 85025

== ENCOUNTER 2023-01-15 18:31 | Outpatient (REF) | payer MEDICARE, BC, SELFPAY ==
[2023-01-15 14:47] LABS: Abs Immature Grans 0.02 10^3/uL (0.0-0.06); Absolute Basophil Count 0.07 10^3/uL (0.0-0.2); Absolute Eosinophil Count 0.16 10^3/uL (0.0-0.7); Absolute Lymphocyte Count 1.84 10^3/uL (1.2-3.4); Absolute Monocyte Count 0.76 10^3/uL (0.1-0.8); Basophils % 0.9; Eosinophils % 2.1; HCT 40.7 % (40.0-50.0); HGB 13.3 g/dL (13.5-17.5); Immature Grans % 0.3; Lymphocytes % 24.1; MCH 30.8 pg (27.0-33.0); MCHC 32.7 % (32.0-36.0); MCV 94 fL (80-95); MPV 9.4 fL (8.0-11.0); Monocytes % 9.9; Neutrophils % 62.7; Platelet Count 228 10^3/uL (130-400); RBC 4.32 10^6/uL (4.36-5.78); RDW-SD 44.7 fL; WBC 7.65 10^3/uL (4.4-10.8)
== END 2023-01-15 18:32 | disposition home or self-care (01) ==
LOC: NCHCN 18:31
PROVIDERS: PCP Internal Medicine; Visit Provider Internal Medicine
DX: D50.0 Iron deficiency anemia secondary to blood loss (chronic) (principal)
CPT/HCPCS: 85025

== ENCOUNTER 2023-01-18 04:02 | Outpatient (CLI) | payer MEDICARE, BC, SELFPAY ==
[2023-01-18 08:47] LABS: HCT 40.2 % (40.0-50.0); HGB 13.2 g/dL (13.5-17.5)
== END 2023-01-18 04:03 | disposition home or self-care (01) ==
LOC: LBO 04:02
PROVIDERS: PCP Internal Medicine; Visit Provider Internal Medicine
DX: K92.2 Gastrointestinal hemorrhage, unspecified (principal)
CPT/HCPCS: 36415; 85014; 85018

== ENCOUNTER 2023-01-21 20:56 | Outpatient (CLI) | payer MEDICARE, BC, SELFPAY ==
[2023-01-21 10:06] LABS: HCT 41.9 % (40.0-50.0); HGB 13.9 g/dL (13.5-17.5)
== END 2023-01-21 20:57 | disposition home or self-care (01) ==
LOC: LBO 20:56
PROVIDERS: PCP Internal Medicine; Visit Provider Internal Medicine
DX: D50.0 Iron deficiency anemia secondary to blood loss (chronic) (principal)
CPT/HCPCS: 36415; 85014; 85018

== ENCOUNTER 2023-07-02 09:24 | Outpatient (CLI) | payer MEDICARE, BC, SELFPAY ==
[2023-07-02 09:42] LABS: Abs Immature Grans 0.02 10^3/uL (0.0-0.06); Absolute Basophil Count 0.06 10^3/uL (0.0-0.2); Absolute Eosinophil Count 0.11 10^3/uL (0.0-0.7); Absolute Lymphocyte Count 1.41 10^3/uL (1.2-3.4); Absolute Monocyte Count 0.44 10^3/uL (0.1-0.8); Absolute Neutrophil Count 2.65 10^3/uL (1.2-6.7); Basophils % 1.3; Eosinophils % 2.3; HCT 42.6 % (40.0-50.0); HGB 14.3 g/dL (13.5-17.5); Immature Grans % 0.4; Lymphocytes % 30.1; MCH 31.5 pg (27.0-33.0); MCHC 33.6 % (32.0-36.0); MCV 94 fL (80-95); MPV 9.5 fL (8.0-11.0); Monocytes % 9.4; Neutrophils % 56.5; Platelet Count 155 10^3/uL (130-400); RBC 4.54 10^6/uL (4.36-5.78); RDW 14.3 % (11.8-14.1); RDW-SD 49.4 fL; WBC 4.69 10^3/uL (4.4-10.8)
[2023-07-02 11:17] LABS: ALT 60 U/L (16-63); AST 51 U/L (15-37); Albumin 3.7 g/dL (3.4-5.0); Alkaline Phosphatase 65 U/L (46-116); Anion Gap 13.8 mmol/L (3-11); BUN 10 mg/dL (7-18); Bilirubin, Total 0.4 mg/dL (0.2-1.0); CO2 28.2 mmol/L (21.0-32.0); CREATININE 1.2 mg/dL (0.70-1.30); Calcium 9.9 mg/dL (8.5-10.1); Chloride 102 mmol/L (98-107); Estimated GFR 64.25 (mL/min/1.73m2); Glucose 79 mg/dL (74-106); Magnesium 2.2 mg/dL (1.8-2.4); Potassium 4.1 mmol/L (3.5-5.1); Sodium 144 mmol/L (136-145); Total Protein 7.7 g/dL (6.4-8.2)
== END 2023-07-02 09:25 | disposition home or self-care (01) ==
LOC: LBO 09:24
PROVIDERS: PCP Internal Medicine; Visit Provider Nurse Practitioner Family
DX: D50.0 Iron deficiency anemia secondary to blood loss (chronic) (principal)
CPT/HCPCS: 36415; 80053; 83735; 85025

== ENCOUNTER 2023-07-10 09:30 | Outpatient (CLI) | payer MEDICARE, BC, SELFPAY ==
[2023-07-10 09:16] LABS: Abs Immature Grans 0.02 10^3/uL (0.0-0.06); Absolute Basophil Count 0.03 10^3/uL (0.0-0.2); Absolute Eosinophil Count 0.11 10^3/uL (0.0-0.7); Absolute Lymphocyte Count 1.46 10^3/uL (1.2-3.4); Absolute Monocyte Count 0.58 10^3/uL (0.1-0.8); Absolute Neutrophil Count 2.59 10^3/uL (1.2-6.7); Basophils % 0.6 %; Eosinophils % 2.3 %; HCT 41.4 % (40.0-50.0); HGB 13.5 g/dL (13.5-17.5); Immature Grans % 0.4 %; Lymphocytes % 30.5 %; MCH 31.5 pg (27.0-33.0); MCHC 32.6 % (32.0-36.0); MCV 97 fL (80-95); MPV 8.4 fL (8.0-11.0); Monocytes % 12.1 %; Neutrophils % 54.1 %; Platelet Count 158 10^3/uL (130-400); RBC 4.29 10^6/uL (4.36-5.78); RDW 14.4 % (11.8-14.1); RDW-SD 50.8 fL; WBC 4.79 10^3/uL (4.4-10.8)
[2023-07-10 09:48] LABS: ALT 53 U/L (16-63); AST 35 U/L (15-37); Albumin 3.7 g/dL (3.4-5.0); Alkaline Phosphatase 56 U/L (46-116); Bilirubin, Total 0.5 mg/dL (0.2-1.0); Ferritin 39 ng/mL (26-388); Total Protein 7.4 g/dL (6.4-8.2)
[2023-07-10 10:07] LABS: Bilirubin, Direct 0.1 mg/dL (0.0-0.2)
[2023-07-10 10:09] LABS: Iron 95 ug/dL (65-175); Total Iron Binding Capacity 273 ug/dL (250-450); Transferrin Sat 35 % (20-55)
== END 2023-07-10 09:31 | disposition home or self-care (01) ==
LOC: LBO 09:30
PROVIDERS: PCP Internal Medicine; Visit Provider Nurse Practitioner Family
DX: R55 Syncope and collapse (principal)
CPT/HCPCS: 36415; 80076; 82728; 83540; 83550; 85025

== ENCOUNTER 2023-11-23 11:28 | Outpatient (CLI) | payer MEDICARE, BC, SELFPAY ==
--- NOTE | 2023-11-23 | DI.RAD_ITS ---
Exam(s) XR CHEST 2V PA LATERAL EXAM: XR CHEST 2V PA LATERAL CLINICAL HISTORY: cough ICD-10: R05.9 TECHNIQUE: 2D digital imaging was performed. Two views. COMPARISON: CR XR CHEST 2V PA LATERAL from 01/03/2022 FINDINGS: HEART: Normal size. Aorta: Not dilated. PULMONARY VASCULATURE: Normal. MEDIASTINUM: Small to moderate-sized hiatal hernia. LUNGS: Clear. PLEURAL SPACE: No pleural effusion or pneumothorax. BONE:Unremarkable for age. SOFT TISSUES: Unremarkable. IMPRESSION: No acute abnormality. DATA REPOSITORY: RADIATION DOSE DELIVERED:
--- NOTE | 2023-11-23 12:23 | DI.VRAD_ITS ---
PROCEDURE INFORMATION: Exam: XR Chest Exam date and time: 11/23/2023 11:58 AM Age: 73 years old Clinical indication: Cough TECHNIQUE: Imaging protocol: Radiologic exam of the chest. Views: 2 views. COMPARISON: CR XR CHEST 2V PA LATERAL 01/03/2022 4:20 PM FINDINGS: Lungs: Unremarkable. No consolidation. Pleural spaces: Unremarkable. No pleural effusion. No pneumothorax. Heart/Mediastinum: There is a moderate to large sized hiatal hernia . Bones/joints: Unremarkable. IMPRESSION: 1. No acute pulmonary process. 2. Hiatal hernia. Dictated and Authenticated by: Freddy Barton MD. Ordering:ADRY Lowery MD
== END 2023-11-23 11:48 ==
PROVIDERS: PCP Internal Medicine; Visit Provider Physician Assistant Medical
DX: R05.9 Cough, unspecified (principal)
CPT/HCPCS: 71046

== ENCOUNTER 2023-12-10 10:23 | Outpatient (CLI) | payer MEDICARE, BC, SELFPAY ==
--- NOTE | 2023-12-10 08:37 | DI.RAD_ITS ---
Exam(s) XR CHEST 2V PA LATERAL EXAM: XR CHEST 2V PA LATERAL CLINICAL HISTORY: COUGH R05.9 TECHNIQUE: 2D digital imaging was performed. Two views. COMPARISON: CR,XR XR CHEST 2V PA LATERAL from 11/23/2023 FINDINGS: HEART: Normal size. Aorta: Not dilated. PULMONARY VASCULATURE: Normal. MEDIASTINUM: Moderate size hiatal hernia. LUNGS: Clear. PLEURAL SPACE: No pleural effusion or pneumothorax. BONE:Unremarkable for age. SOFT TISSUES: Unremarkable. IMPRESSION: No acute abnormality. DATA REPOSITORY: RADIATION DOSE DELIVERED:
== END 2023-12-10 10:43 ==
PROVIDERS: PCP Internal Medicine; Visit Provider Nurse Practitioner Family
DX: R05.9 Cough, unspecified (principal)
CPT/HCPCS: 71046

== ENCOUNTER → 2024-02-12 11:26 | Outpatient (BNVA) | payer MEDICARE, BC, SELFPAY | PROVIDERS: PCP Nurse Practitioner Family; Referring Provider Nurse Practitioner Family; Visit Provider Podiatrist | DX: L60.3 Nail dystrophy (principal) | CPT/HCPCS: 99213 ==

== ENCOUNTER 2024-07-07 00:30 | Outpatient (CLI) | payer MEDICARE, BC, SELFPAY ==
[2024-07-07 09:16] LABS: Hemoglobin A1C 5.6 % (<5.7)
[2024-07-07 10:26] LABS: ALT 33 U/L (16-63); AST 25 U/L (15-37); Alkaline Phosphatase 53 U/L (46-116); Anion Gap 10.4 mmol/L (3-11); BUN 17 mg/dL (7-18); Bilirubin, Total 0.5 mg/dL (0.2-1.0); CO2 27.6 mmol/L (21.0-32.0); CREATININE 0.9 mg/dL (0.70-1.30); Calcium 9.3 mg/dL (8.5-10.1); Chloride 105 mmol/L (98-107); Estimated GFR 90.18 (mL/min/1.73m2); Glucose 86 mg/dL (74-106); Magnesium 1.9 mg/dL (1.8-2.4); Potassium 4.4 mmol/L (3.5-5.1); Sodium 143 mmol/L (136-145); Total Protein 7.8 g/dL (6.4-8.2); Vitamin B12 625 pg/mL (193-986)
== END 2024-07-07 00:31 | disposition home or self-care (01) ==
LOC: LBO 00:30
PROVIDERS: PCP Nurse Practitioner Family; Visit Provider Nurse Practitioner Family
DX: E66.9 Obesity, unspecified (principal); I10 Essential (primary) hypertension; D50.0 Iron deficiency anemia secondary to blood loss (chronic); Z51.81 Encounter for therapeutic drug level monitoring; K21.9 Gastro-esophageal reflux disease without esophagitis
CPT/HCPCS: 36415; 80053; 82607; 83036; 83735

== ENCOUNTER 2024-07-10 10:01 | Outpatient (CLI) | payer MEDICARE, BC, SELFPAY ==
[2024-07-10 07:57] LABS: Abs Immature Grans 0.05 10^3/uL (0.0-0.06); Absolute Basophil Count 0.09 10^3/uL (0.0-0.2); Absolute Eosinophil Count 0.23 10^3/uL (0.0-0.7); Absolute Lymphocyte Count 1.61 10^3/uL (1.2-3.4); Absolute Monocyte Count 0.82 10^3/uL (0.1-0.8); Absolute Neutrophil Count 3.76 10^3/uL (1.2-6.7); Basophils % 1.4 %; Eosinophils % 3.5 %; HCT 41.5 % (40.0-50.0); HGB 14.4 g/dL (13.5-17.5); Immature Grans % 0.8 %; Lymphocytes % 24.5 %; MCH 33.3 pg (27.0-33.0); MCHC 34.7 % (32.0-36.0); MCV 96 fL (80-95); MPV 9.3 fL (8.0-11.0); Monocytes % 12.5 %; Neutrophils % 57.3 %; Platelet Count 194 10^3/uL (130-400); RBC 4.33 10^6/uL (4.36-5.78); RDW 13.2 % (11.8-14.1); RDW-SD 46.5 fL; WBC 6.56 10^3/uL (4.4-10.8)
[2024-07-10 08:57] LABS: Iron 65 ug/dL (65-175); Total Iron Binding Capacity 296 ug/dL (250-450); Transferrin Sat 22 % (20-55)
[2024-07-10 09:05] LABS: Calculated LDL 63 mg/dL (<100); Cholesterol 152 mg/dL (<200); Ferritin 51 ng/mL (26-388); HDL Cholesterol 78 mg/dL (>or=40); Triglyceride 55 mg/dL (<150)
== END 2024-07-10 10:02 | disposition home or self-care (01) ==
LOC: LBO 10:02
PROVIDERS: PCP Nurse Practitioner Family; Visit Provider Nurse Practitioner Family
DX: I10 Essential (primary) hypertension (principal); D50.0 Iron deficiency anemia secondary to blood loss (chronic)
CPT/HCPCS: 36415; 80061; 82728; 83540; 83550; 85025

== ENCOUNTER 2024-10-05 12:21 | Outpatient (CLI) | payer MEDICARE, BC, SELFPAY ==
--- NOTE | 2024-10-05 | DI.CT_ITS ---
Exam(s) CT CHEST/ABD/PEL W EXAM: CT CHEST/ABD/PEL W CLINICAL HISTORY: BLUNT TRAUMA TO ABD, S39.91XA. TECHNIQUE: Imaging Protocol: Axial computed tomography images with coronal and sagittal reformatted images were created and reviewed. Computer aided detection (CAD) was utilized. CONTRAST MATERIAL: Intravenous: Omnipaque 350 Contrast volume:100 ml Oral: yes / COMPARISON: CT CTA THORAX from 10/09/[address] BRAIN NECK CTA from 01/01/2022 CR XR CHEST 2V PA LATERAL from 12/10/2023 FINDINGS: CHEST: There is streak artifact related to patient arm positioning. Pulmonary parenchyma: No consolidation. No dominant measurable mass. Tracheobronchial tree: No bronchiectasis. No mucous plugging.No bronchial wall thickening. Pleura: No effusion or pneumothorax. Mediastinum: Large hiatal hernia. Pulmonary arteries: No visible emboli. Cardiovascular: No pericardial effusion. Thoracic aorta non-dilated. Bones: Unremarkable for age. No lytic or blastic lesions. No compression fractures. No visible rib fracture. Soft tissues: Unremarkable. ABDOMEN and PELVIS: Streak artifact related to patient arm positioning. Liver: Mild hepatic steatosis. Liver size normal. No suspicious mass. Gallbladder and biliary tract: No evidence of stones or wall thickening. No biliary dilatation. Pancreas: Normal density, no abnormal calcifications or inflammatory process. Spleen: Normal. Kidneys: Normal size, contour and axis. No radiodense stones. No obstructive uropathy. No suspicious masses seen. Adrenal glands: No masses seen. Aorta: Abdominal portion non-dilated. Lymph nodes: Within normal limits. Soft tissues: Unremarkable. Bladder: Unremarkable. Bowel: No obstruction or bowel wall thickening. Peritoneal cavity: No ascites. No focal collection. No mesenteric inflammatory response. No free air. Bones: Unremarkable for age. No evidence of spine or or pelvic fracture. Reproductive organs: Unremarkable for age. IMPRESSION: No acute abnormality in the chest, abdomen or pelvis. RADIATION DOSE DELIVERED: Total DLP DATA REPOSITORY: All CT scans at this facility are submitted to the National Radiology Data Registry (NRDR) Dose Index Registry (DIR) with the [employer] (A[employer]). RADIATION OPTIMIZATION: All CT scans at this facility use at least one of these dose optimization techniques: automated exposure control; mA and/or kV adjustment per patient size (includes targeted exams where dose is matched to clinical indication); or iterative reconstruction.
--- NOTE | 2024-10-05 | DI.CT_ITS ---
Exam(s) CT HEAD WO EXAM: CT HEAD WO CLINICAL HISTORY: INJURY OF HEAD, S09.90XA. TECHNIQUE: Imaging Protocol: Axial computed tomography images with coronal and sagittal reformatted images were created and reviewed COMPARISON: CT CT BRAIN NECK CTA from 01/01/2022 FINDINGS: Focal posterior right of center scalp hematoma noted. There are no skull fractures. There is no fluid in the visualized paranasal sinuses. There is no evidence of intracranial hemorrhage, mass effect, or shift of midline structures. There are no extra-axial fluid collections. The ventricles are not enlarged or shifted and there is no blood within the ventricular system nor within the basal cisterns. There is periventricular hypodensity consistent with chronic small vessel disease again noted,. Similar to previous CT scan of December 2021. IMPRESSION: No acute intracranial findings on this noninfused CT scan of the brain. RADIATION DOSE DELIVERED: 880.23mGy.cm Total DLP DATA REPOSITORY: All CT scans at this facility are submitted to the National Radiology Data Registry (NRDR) Dose Index Registry (DIR) with the [employer] (ACR). RADIATION OPTIMIZATION: All CT scans at this facility use at least one of these dose optimization techniques: automated exposure control; mA and/or kV adjustment per patient size (includes targeted exams where dose is matched to clinical indication); or iterative reconstruction.
[2024-10-05] MEDS: Breeza Beverage 473 ML BTL PO ×2 (13:26→13:27)
[2024-10-05] MEDS: Omnipaque 350 MG/ML 50 ML BTL PO (13:28)
[2024-10-05] MEDS: Omnipaque 350 MG/ML 100 ML BTL 75 ML IJ (14:55)
[2024-10-05] MEDS: Normal Saline - Diluent 50 ML VIAL IJ (14:56)
== END 2024-10-05 12:41 ==
LOC: DI 12:21
PROVIDERS: PCP Nurse Practitioner Family; Visit Provider Family Medicine
DX: S09.90XA Unspecified injury of head, initial encounter (principal); S39.91XA Unspecified injury of abdomen, initial encounter; X58.XXXA Exposure to other specified factors, initial encounter; R91.8 Other nonspecific abnormal finding of lung field
CPT/HCPCS: 36415; 74177; 80053; 70450; 71260; 85025; J3490; Q9967

== ENCOUNTER 2024-10-05 13:35 | Outpatient (CLI) | payer MEDICARE, BC, SELFPAY ==
[2024-10-05 13:08] LABS: Abs Immature Grans 0.04 10^3/uL (0.0-0.06); HCT 42.4 % (40.0-50.0); HGB 14.4 g/dL (13.5-17.5); Immature Grans % 0.6 %; MCH 32.8 pg (27.0-33.0); MCHC 34.0 % (32.0-36.0); MCV 97 fL (80-95); MPV 9.3 fL (8.0-11.0); Platelet Count 184 10^3/uL (130-400); RBC 4.39 10^6/uL (4.36-5.78); RDW 12.8 % (11.8-14.1); RDW-SD 45.9 fL; WBC 7.06 10^3/uL (4.4-10.8)
[2024-10-05 13:26] LABS: ALT 43 U/L (16-63); AST 32 U/L (15-37); Albumin 4.0 g/dL (3.4-5.0); Alkaline Phosphatase 67 U/L (46-116); Anion Gap 9.7 mmol/L (3-11); BUN 17 mg/dL (7-18); Bilirubin, Total 0.6 mg/dL (0.2-1.0); CO2 29.3 mmol/L (21.0-32.0); Calcium 9.3 mg/dL (8.5-10.1); Chloride 99 mmol/L (98-107); Estimated GFR 70.88 (mL/min/1.73m2); Glucose 91 mg/dL (74-106); Potassium 4.1 mmol/L (3.5-5.1); Sodium 138 mmol/L (136-145); Total Protein 7.8 g/dL (6.4-8.2)
== END 2024-10-05 13:36 | disposition home or self-care (01) ==
LOC: LBO 13:36
PROVIDERS: PCP Nurse Practitioner Family; Visit Provider Family Medicine
DX: S39.91XA Unspecified injury of abdomen, initial encounter (principal)
CPT/HCPCS: 36415; 80053; 85025

== ENCOUNTER → 2024-12-02 08:29 | Outpatient (BNVA) | payer MEDICARE, BC, SELFPAY | PROVIDERS: PCP Nurse Practitioner Family; Referring Provider Nurse Practitioner Family; Visit Provider Psychiatry & Neurology Neurology | DX: R55 Syncope and collapse (principal); I10 Essential (primary) hypertension; Z79.01 Long term (current) use of anticoagulants | CPT/HCPCS: 99215 ==